=== PATIENT | female | born 1935 | race African-American/Black ===

== ENCOUNTER 2017-09-04 10:41 | Observation (INO) | payer MEDICARE, MEDICAID, SELFPAY | END 2017-09-06 14:25 | PROVIDERS: Admitting Provider Emergency Medicine; Emergency Provider Emergency Medicine; Family Provider Emergency Medicine; Visit Provider Emergency Medicine | DX: R55 Syncope and collapse (principal); E86.0 Dehydration; I10 Essential (primary) hypertension; R11.10 Vomiting, unspecified; E11.9 Type 2 diabetes mellitus without complications; Z79.4 Long term (current) use of insulin; N39.0 Urinary tract infection, site not specified | CPT/HCPCS: 36415; 70450; 71010; 80053; 81001; 82550; 82553; 82962; 84484; 85025; 87040; 87086; 87088; 87186; 93005; 93041; 94760; 96365; 99284; G0378 ==

== ENCOUNTER 2018-12-09 14:21 | Observation (INO) ==
--- NOTE | 2018-12-09 14:49 | Emergency Department Note ---
ED Disposition Clinical Impression: Dehydration UTI (urinary tract infection) Qualifiers: Urinary tract infection type: site unspecified Hematuria presence: without hem aturia Qualified Code(s): N39.0 - Urinary tract infection, site not specified Disposition: Admitted as Observation Condition on Discharge: Fair Referrals: Provider,Referral, [Primary Care Provider] - - Critical Care Critical Care Time: No Attestation: On 12/09/18, the high probability of a clinically significant, sudden or life threatening deterioration of the following system(s) required my full and direct attention, intervention and personal management. The time I documented below is in addition to time spent performing reported procedures but includes the following listed in this critical care notation. Medical Decision Making - Francois Inquiry Pt receiving controlled substance: No Vital Signs: 12/09/18 14:23 Temperature 98.2 F Temperature Source Temporal Artery Scan Pulse Rate [Right Radial] 86 Respiratory Rate 18 Blood Pressure [Right Arm] 189/110 H Blood Pressure Mean [Right Arm] 136 Blood Pressure Source [Right Arm] Automatic Cuff Blood Pressure Position [Right Arm] Supine 02 Sat by Pulse Oximetry 95 Oxygen Delivery Method Room Air - Lab Data Lab Results 12/09/18 15:05: Stool Occult Blood Negative 12/09/18 15:28: WBC 18.7 H, RBC 6.04 H, Hgb 17.4 H, Hct 53.2 H, MCV 88.0, MCH 28.8, MCHC 32.8, RDW 14.6, Plt Count 254, MPV 8.3, Neut % (Auto) 88.0 H, Lymph % (Auto) 6.4 L, [place] % (Auto) 4.7, Eos % (Auto) 0.7, Baso % (Auto) 0.1, Neut # (Auto) 16.5 H, Lymph # (Auto) 1.2, [place] # (Auto) 0.9, Eos # (Auto) 0.1, Baso # (Auto) 0.0, Total Counted 100, Neutrophils % (Manual) 86 H, Band Neutrophils % 5.0, Lymphocytes % (Manual) 4 L, Atypical Lymphs % 1.0, Monocytes % (Manual) 4, Platelet Estimate Normal, RBC Morphology Normal 12/09/18 15:28: Sodium 146 H, Potassium 3.1 L, Chloride 103, Carbon Dioxide 31, Anion Gap 15.1 H, BUN 31 H, Creatinine 0.96, Estimated Creat Clear 41, Estimated GFR 56 L, Est GFR ( Amer) 67, Glucose 242 H, Calcium 9.9, Total Bilirubin 0.8, AST 13 L, ALT 19, Alkaline Phosphatase 115, Total Protein 8.6 H D, Albumin 3.1 L, Globulin 5.5 H, Albumin/Globulin Ratio 0.6 L 12/09/18 15:28: Troponin I < 0.02, Lipase 130 12/09/18 15:34: Urine Color Yellow, Urine Appearance Clear, Urine pH 6.5, Ur Specific [place] 1.025, Urine Protein 3+, Urine Glucose (UA) Negative, Urine Ketones Trace, Urine Blood 1+, Urine Nitrate Positive, Urine Bilirubin Negative, Urine Urobilinogen 0.2, Ur Leukocyte Esterase 1+ A, Urine RBC Occasional, Urine WBC 20-50, Ur Squamous Epith Cells Occasional, Urine Bacteria 2+ 12/09/18 17:41: Lactate 1.4 Result diagrams: 12/09/18 15:28 12/09/18 15:28 Orders (Tests/Meds): ED MEDICATIONS Generic Name Dose Route Start Last Admin Trade Name Freq PRN Reason Stop Dose Admin Ceftriaxone Sodium 1 gm/ 50 mls @ 100 mls/hr 12/09/18 17:30 Sodium Chloride IV 12/23/18 17:29 Q24H LIBRADO Protocol Sodium Chloride 1,000 mls @ 100 mls/hr 12/09/18 18:45 Sod Chlor 0.9% 1000ml Bag IV 01/08/19 18:44 .Q10H LIBRADO Sodium Chloride 10 ml 12/09/18 14:40 Saline Flush 10ml Syringe IV 01/08/19 14:39 NEEDED PRN Maintain IV Site Discontinued Medications Generic Name Dose Route Start Last Admin Trade Name Freq PRN Reason Stop Dose Admin Ioversol 75 ml 12/09/18 16:48 12/09/18 16:48 Rad-Optiray 350 100ml Vial IV 12/09/18 16:49 75 ml ONCE ONE Administration Protocol Sodium Chloride 10 ml 12/09/18 16:48 12/09/18 16:48 Rad-Saline Flush 10ml Syringe IV 12/09/18 16:49 10 ml ONCE ONE Administration ORDERS Category Date Time Status XR chest portable Stat Exams 12/09/18 17:15 Taken Blood Culture Stat Micro 12/09/18 17:41 Received Urine Culture Stat Micro 12/09/18 15:34 Received - Radiology Data #1 Image(s): Chest Image Reviewed: Yes I reviewed the patient's radiology image Preliminary Findings: Normal/NAD - CT Data CT Scan: Abdomen, Pelvis Time Received: 17:[address] Reviewed: Yes: I have viewed the radiologist's interpretation Findings Narrative: IMPRESSION: 1. No acute abdominal or pelvic findings. 2. Possible reflux esophagitis. 3. PEG catheter and Gonzalez catheter in satisfactory position Dictated By: Carrillo Ramos MD - Physician Consults Physician Consulted: Yesica Garcia Time: 18:47 Reason -: Admission Comment/Response: Agrees to admit the patient to the hospital. We discussed the patient's clinical information, including history, exam, laboratory and radiology results and ED course. Per hospital procedure, I will write temporary bridge inpatient orders on the patient. Specific orders requested by the admitting physician: IV fluids, Rocephin General Adult HPI - General Chief complaint: Weakness Stated complaint: bowel obs Time Seen by Provider: 12/09/18 14:49 Mode of Arrival: EMS Limitations: Physical Limitations Description of Symptoms (Recalled from ER Triage Doc. by RN): Possible bowel obstruction. - History of Present Illness HPI narrative: Patient transported by ambulance from [facility], to "rule out bowel obstruction". History obtained from our nurses, who received report that the patient had one episode of coffee-ground emesis today and Dr. Garcia wanted her brought here "to rule out bowel obstruction". Unable to obtain any history from patient as she is nonverbal. - Related Data Home Medications Medication Instructions Recorded Confirmed acetaminophen 500 mg tablet 500 mg PO Q4-6H PRN 11/15/17 12/07/18 amlodipine 5 mg tablet 5 mg PO ONCE 11/15/17 12/07/18 aspirin 325 mg tablet 325 mg PO DAILY tab 11/15/17 12/07/18 brimonidine 0.2 % eye drops 1 drp OPHTHALMIC BID ml 11/15/17 12/07/18 carvedilol 12.5 mg tablet 12.5 mg PO BID 11/15/17 12/07/18 dextrose 40 % oral gel 15 g PO ONCE PRN 11/15/17 12/07/18 escitalopram 10 mg tablet 10 mg PO ONCE 11/15/17 12/07/18 guaifenesin 100 mg/5 mL oral liquid 200 mg PO Q4H 11/15/17 12/07/18 isosorbide dinitrate 30 mg tablet 30 mg PO BID tab 11/15/17 12/07/18 latanoprost 0.005 % eye drops 1 drp OPHTHALMIC DAILY ml 11/15/17 12/07/18 lisinopril 40 mg tablet 40 mg PO DAILY tab 11/15/17 12/07/18 loperamide 2 mg capsule 2 mg PO Q3H cap 11/15/17 12/07/18 nitroglycerin 0.4 mg sublingual 0.4 mg SUBLINGUAL Q5M PRN 11/15/17 12/07/18 tablet ondansetron HCl 4 mg tablet 4 mg PO Q8HP PRN tab 11/15/17 12/07/18 risperidone 2 mg tablet 1 mg PO HS tab 11/15/17 12/07/18 sennosides 8.6 mg-docusate sodium 2 tab PO DAILY 11/15/17 12/07/18 50 mg tablet simvastatin 20 mg tablet 20 mg PO QHS tab 11/15/17 12/07/18 timolol 0.5 % eye drops 1 drp OPHTHALMIC BID 11/15/17 12/07/18 risperiDONE [Risperdal 1mg Tablet] 1 mg PO DAILY 03/01/18 12/07/18 Allergies Allergy/AdvReac Type Severity Reaction Status Date / Time egg [From EGGS (FOOD/DRUG)] Allergy Intermediate I-RASH Verified 12/07/18 18:25 peanut Allergy Intermediate UNK Verified 12/07/18 18:25 [From PEANUTS (FOOD/DRUG)] Penicillins [PENICILLINS] Allergy Intermediate Verified 12/07/18 18:25 [facility] History - Hepatitis A Screen Drug use history?: No High risk sexual behaviors?: No History of sexually transmitted infection?: No Currently employed?: No Childcare worker?: No Do you have indoor plumbing?: Yes Do you have electricity?: Yes Attestation statement:: This patient has been screened for Hepatitis A risk factors. I have reviewed the patient's past medical history: Yes Medical History: Reports:: Diabetes Mellitus Type 1 Denies:: Diabetes Mellitus Type 2 Amputation: No Fractures: No - Social History Smoking Status: Never smoker Alcohol Intake: never Occupational Status: other ROS Obtained: Yes unobtainable due to mental condition Physical Exam - General General appearance: other Comment: Lays with eyes closed, arms folded across chest, knees drawn up. - Head Head exam: atraumatic, normocephalic - Eye Eye exam: Present: PERRL - ENT ENT exam: Present: mucous membranes dry - Neck Neck exam: Present: normal inspection, trachea midline - Chest Chest inspection: Present: normal inspection, symmetric chest wall rise - Respiratory Respiratory exam: Present: normal lung sounds bilaterally. Absent: respiratory distress - Cardiovascular Cardiovascular exam: Present: regular rate, normal rhythm, normal heart sounds - Abdominal Exam Abdominal exam: Present: soft. Absent: distention, guarding, rebound, rigidity Comment: No grimacing or guarding with palpation - Rectal Exam Rectal exam: Present: normal inspection, normal rectal tone, other (stool is green-brown). Absent: bloody stool, fecal impaction - Extremities Exam Extremities exam: Present: normal capillary refill. Absent: tenderness, pedal edema, joint swelling - Neurological Exam Neurological exam: Present: other (Lays with eyes closed, nonverbal) - Skin Skin exam: Present: warm, dry
[2018-12-09 15:36] LABS: Basophils % 0.1 % (0.1-2.0); Eosinophils # 0.1 K/mm3 (0.0-0.4); Eosinophils % 0.7 % (0.1-12.0); Hematocrit 53.2 % (37.0-47.0); Hemoglobin 17.4 g/dL (12.2-16.2); Lymphocytes # 1.2 K/mm3 (0.7-4.5); Lymphocytes % 6.4 % (10-50); Mean Corpuscular HGB Conc 32.8 g/dL (31.8-35.4); Mean Corpuscular Hemoglobin 28.8 pg (27.0-31.2); Mean Platelet Volume 8.3 fl (7.4-10.4); Monocytes # 0.9 K/mm3 (0.1-1.0); Monocytes % 4.7 % (1.7-9.3); Neutrophils # 16.5 K/mm3 (1.8-7.8); Platelet Count 254 K/mm3 (142-424); Red Blood Count 6.04 M/mm3 (4.20-5.40); Red Cell Distribution Width 14.6 % (11.5-17.5); White Blood Count 18.7 K/mm3 (4.8-10.8)
[2018-12-09 15:40] LABS: Microscopic, Urine URINE MICROSCOPIC (MICROSCOPIC)
[2018-12-09 15:46] LABS: Appearance,Urine CLEAR (Clear); Bilirubin,Urine Negative (Negative); Blood, Urine 1+ (Negative); Color,Urine YELLOW (Yellow); Glucose,Urine (UA) Negative (Negative); Ketones,Urine TRACE (Negative); Leukocyte Esterase,Urine 1+ (Negative); PH,Urine 6.5 (5.0-8.5); Protein,Urine 3+ (Negative); Specific Gravity, Urine 1.025 (1.005-1.030); Urobilinogen,Urine 0.2 EU/dl (0.2)
[2018-12-09 15:52] LABS: Lipase 130 u/L (73-393)
[2018-12-09 15:56] LABS: Anion Gap 15.1 mEq/L (5-15); Potassium 3.1 mmoL/L (3.5-5.1)
[2018-12-09 15:57] LABS: Albumin Level 3.1 gm/dL (3.4-5.0); Albumin/Globulin Ratio 0.6 (1.1-1.8); Bilirubin,Total 0.8 mg/dL (0.2-1.0); Calcium 9.9 mg/dL (8.5-10.1); Globulin 5.5 gm/dl (1.3-3.2); Total Protein,Serum 8.6 gm/dL (6.4-8.2)
[2018-12-09 16:07] LABS: Lymphocytes % 4 % (10-50); Monocytes % 4 % (2-9); Neutrophils % 86 % (42-76); RBC Morphology Normal; Total Cells Counted 100
[2018-12-09 16:11] LABS: Bacteria,Urine 2+ /lpf
[2018-12-09 16:12] LABS: RBC,Urine Occasional #/hpf (0-3); Squamous Epithelial Cell,Urine Occasional #/hpf (0-5); WBC,Urine 20-50 #/hpf (0-3)
--- NOTE | 2018-12-09 20:14 | History & Physical Report ---
*Admission Date: 12/09/18 *Chief complaint: vomiting *History of present illness: elderly wf from [facility] with progressive vomiting despite meds - pt was seen in the ed - atient transported by ambulance from [facility], [place], to "rule out bowel obstruction". History obtained from our nurses, who received report that the patient had one episode of coffee-ground emesis today and Dr. Garcia wanted her brought here "to rule out bowel obstruction". Unable to obtain any history from patient as she is nonverbal. pt was found with abn u/a and abn labs and was admitted for ivf and abx - [facility] History I have reviewed the patient's past medical history: Yes Medical History: Reports:: Diabetes Mellitus Type 1, Diabetes Mellitus Type 2 Denies:: Cancer, MRSA *Have you ever received a pneumonia vaccine?: Yes *Have you received a flu vaccine this season?: Yes Amputation: No Fractures: No - *Social History Smoking Status: Never smoker Alcohol Intake: never *Occupational Status:: other Housing: [facility] *Travel in the last 8 weeks: None - Psychiatric History Expresses thoughts of harming self/others: None Suicide Plan Description: No Plan Family Hx:: Unable to obtain Review of Systems - Review of Systems Review of systems:: unable to obtain, pertinent systems reviewed and negative unless documented below - Constitutional Reports headache(s) Meds Home Medications Medication Instructions Recorded Confirmed Type acetaminophen 500 mg tablet 500 mg G-TUBE Q4-6H PRN 11/15/17 12/09/18 History amlodipine 5 mg tablet 5 mg G-TUBE ONCE 11/15/17 12/09/18 History aspirin 325 mg tablet 325 mg G-TUBE DAILY tab 11/15/17 12/09/18 History brimonidine 0.2 % eye drops 1 drp OPHTHALMIC BID ml 11/15/17 12/09/18 History carvedilol 12.5 mg tablet 12.5 mg G-TUBE BID 11/15/17 12/09/18 History isosorbide dinitrate 30 mg tablet 30 mg G-TUBE BID tab 11/15/17 12/09/18 History lisinopril 40 mg tablet 40 mg G-TUBE DAILY tab 11/15/17 12/09/18 History ondansetron HCl 4 mg tablet 4 mg G-TUBE Q8HP PRN tab 11/15/17 12/09/18 History Hydrocod/Acet 5/325 mg [[place] 1 tab G-TUBE TID 12/09/18 12/09/18 History 5/325mg tablet] Insulin Glargine,Hum.rec.anlog 10 unit SQ DAILY 12/09/18 12/09/18 History [Insulin Glargine 100 Units/mL 3mL flexpen] Promethazine HCl [Phenadoz] 25 mg RC DAILY 12/09/18 12/09/18 History cloNIDine [Clonidine] 1 each TD WEEKLY 12/09/18 12/09/18 History fentaNYL [Fentanyl] 1 each TD Q72H 12/09/18 12/09/18 History Allergies Allergy/AdvReac Type Severity Reaction Status Date / Time egg [From EGGS (FOOD/DRUG)] Allergy Intermediate I-RASH Verified 12/07/18 18:25 peanut Allergy Intermediate UNK Verified 12/07/18 18:25 [From PEANUTS (FOOD/DRUG)] Penicillins [PENICILLINS] Allergy Intermediate Verified 12/07/18 18:25 Exam Vital signs and Labs for Last 24 Hours: Temp Pulse Resp BP Pulse Ox 98.2 F 111 H 14 171/92 H 98 12/09/18 14:23 12/09/18 19:18 12/09/18 19:18 12/09/18 19:18 12/09/18 19:18 Laboratory Results - last 24 hr 12/09/18 15:05: Stool Occult Blood Negative 12/09/18 15:28: WBC 18.7 H, RBC 6.04 H, Hgb 17.4 H, Hct 53.2 H, MCV 88.0, MCH 28.8, MCHC 32.8, RDW 14.6, Plt Count 254, MPV 8.3, Neut % (Auto) 88.0 H, Lymph % (Auto) 6.4 L, [place] % (Auto) 4.7, Eos % (Auto) 0.7, Baso % (Auto) 0.1, Neut # (Auto) 16.5 H, Lymph # (Auto) 1.2, [place] # (Auto) 0.9, Eos # (Auto) 0.1, Baso # (Auto) 0.0, Total Counted 100, Neutrophils % (Manual) 86 H, Band Neutrophils % 5.0, Lymphocytes % (Manual) 4 L, Atypical Lymphs % 1.0, Monocytes % (Manual) 4, Platelet Estimate Normal, RBC Morphology Normal 12/09/18 15:28: Sodium 146 H, Potassium 3.1 L, Chloride 103, Carbon Dioxide 31, Anion Gap 15.1 H, BUN 31 H, Creatinine 0.96, Estimated Creat Clear 41, Estimated GFR 56 L, Est GFR ( Amer) 67, Glucose 242 H, Calcium 9.9, Total Bilirubin 0.8, AST 13 L, ALT 19, Alkaline Phosphatase 115, Total Protein 8.6 H D, Albumin 3.1 L, Globulin 5.5 H, Albumin/Globulin Ratio 0.6 L 12/09/18 15:28: Troponin I < 0.02, Lipase 130 12/09/18 15:34: Urine Color Yellow, Urine Appearance Clear, Urine pH 6.5, Ur Specific [place] 1.025, Urine Protein 3+, Urine Glucose (UA) Negative, Urine Ketones Trace, Urine Blood 1+, Urine Nitrate Positive, Urine Bilirubin Negative, Urine Urobilinogen 0.2, Ur Leukocyte Esterase 1+ A, Urine RBC Occasional, Urine WBC 20-50, Ur Squamous Epith Cells Occasional, Urine Bacteria 2+ 12/09/18 17:41: Lactate 1.4 I & O for Last 24 hours: Intake & Output 12/07/18 12/08/18 12/09/18 12/10/18 11:59 11:59 11:59 11:59 Weight 130 lb 8 oz - Constitutional no acute distress, chronically ill appearing Comments: nonverbal - *Routine HEENT Exam Head: Present: normocephalic Eye: Absent: conjunctival icterus ENT: Present: mucous membranes dry - *Routine Neck Exam Absent: JVD - *Routine Respiratory Exam Present: decreased breath sounds - *Routine Cardiovascular Exam Present: RRR, murmur - *Routine Abdominal Exam Present: soft Comments: g tube - *Routine Extremities Exam Present: edema - *Routine Skin Exam Present: intact - *Routine Neurological Exam Present: altered mental status flex contracutures and no posturing - Routine Psychiatric Exam Present: unable to assess Assessment and Plan (1) DNR (do not resuscitate) Current visit: No Status: Acute Category: Medical Code(s): Z66 - Do not resuscitate (2) UTI (urinary tract infection) Current visit: Yes Status: Acute Qualifiers: Urinary tract infection type: site unspecified Hematuria presence: without hematuria Qualified Code(s): N39.0 - Urinary tract infection, site not specified Category: Medical Code(s): N39.0 - Urinary tract infection, site not specified (3) HTN (hypertension) Current visit: Yes Status: Acute Category: Medical Code(s): I10 - Essential (primary) hypertension (4) Glaucoma Current visit: Yes Status: Acute Qualifiers: Glaucoma type: unspecified Laterality: unspecified laterality Qualified Code(s): H40.9 - Unspecified glaucoma Category: Medical Code(s): H40.9 - Unspecified glaucoma (5) Chronic pain disorder Current visit: Yes Status: Acute Category: Medical Code(s): G89.4 - Chronic pain syndrome (6) Diabetes Current visit: Yes Status: Acute Qualifiers: Diabetes mellitus type: type 1 Diabetes mellitus complication status: with unspecified complications Qualified Code(s): E10.8 - Type 1 diabetes mellitus with unspecified complications Category: Medical Code(s): E11.9 - Type 2 diabetes mellitus without complications (7) Dementia Current visit: Yes Status: Acute Qualifiers: Dementia type: unspecified type Dementia behavioral disturbance: without be havioral disturbance Qualified Code(s): F03.90 - Unspecified dementia without behavioral disturbance Category: Medical Code(s): F03.90 - Unspecified dementia without behavioral disturbance (8) Compression fracture of lumbar vertebra Current visit: Yes Status: Acute Qualifiers: Encounter type: subsequent encounter Lumbar vertebra fracture level: L5 Fracture type: closed Fracture healing: with routine healing Qualified Code(s): S32.050D - Wedge compression fracture of fifth lumbar vertebra, subsequent encounter for fracture with routine healing Category: Medical Code(s): S32.000A - Wedge compression fracture of unspecified lumbar vertebra, initial encounter for closed fracture (9) Hypokalemia Current visit: Yes Status: Acute Category: Medical Code(s): E87.6 - Hypokalemia (10) GERD (gastroesophageal reflux disease) Current visit: Yes Status: Acute Qualifiers: Esophagitis presence: with esophagitis Qualified Code(s): K21.0 - Gastro- esophageal reflux disease with esophagitis Category: Medical Code(s): K21.9 - Gastro-esophageal reflux disease without esophagitis
[2018-12-10 06:28] LABS: Basophils % 0.1 % (0.1-2.0); Eosinophils # 0.1 K/mm3 (0.0-0.4); Eosinophils % 0.6 % (0.1-12.0); Lymphocytes # 1.5 K/mm3 (0.7-4.5); Mean Corpuscular HGB Conc 31.8 g/dL (31.8-35.4); Mean Corpuscular Hemoglobin 28.5 pg (27.0-31.2); Mean Corpuscular Volume 89.7 fl (81-99); Mean Platelet Volume 8.3 fl (7.4-10.4); Monocytes # 1.3 K/mm3 (0.1-1.0); Neutrophils # 15.4 K/mm3 (1.8-7.8); Neutrophils % 84.2 % (37.0-80.0); Platelet Count 239 K/mm3 (142-424); Red Blood Count 5.46 M/mm3 (4.20-5.40); Red Cell Distribution Width 14.7 % (11.5-17.5); White Blood Count 18.3 K/mm3 (4.8-10.8)
[2018-12-10 06:37] LABS: Hemoglobin 15.9 g/dL (12.2-16.2)
[2018-12-10 06:42] LABS: Calcium 8.7 mg/dL (8.5-10.1)
--- NOTE | 2018-12-10 07:36 | Pharmacy Consult Notes ---
[facility] Pharmacy VTE Monitoring - Patient Demographics Admission date: 12/09/18 Report Date: 12/10/18 Time: 07:35 Allergies/Adverse Reactions: Patient Allergies egg [From EGGS (FOOD/DRUG)] Allergy (Intermediate, Verified 12/07/18 18:25) I-RASH peanut [From PEANUTS (FOOD/DRUG)] Allergy (Intermediate, Verified 12/07/18 18:25) UNK Penicillins [PENICILLINS] Allergy (Intermediate, Verified 12/07/18 18:25) Height: 1.57 m Weight: 55.99 kg Patient Problems: Current Active Problems UTI (urinary tract infection) (Acute) Dehydration (Acute) HTN (hypertension) (Acute) Glaucoma (Acute) Chronic pain disorder (Acute) Diabetes (Acute) Dementia (Acute) Compression fracture of lumbar vertebra (Acute) Hypokalemia (Acute) GERD (gastroesophageal reflux disease) (Acute) - VTE Risk Labs: VTE Related Lab Results Hgb 15.9 g/dL (12.2-16.2) 12/10/18 06:15 Hct 49.0 % (37.0-47.0) H 12/10/18 06:15 Plt Count 239 K/mm3 (142-424) 12/10/18 06:15 BUN 38 mg/dL (7-18) H 12/10/18 06:15 Creatinine 1.01 mg/dL (0.55-1.02) 12/10/18 06:15 Estimated Creat Clear 41 mL/min (50-200) 12/10/18 06:15 - Prophylaxis VTE Prophylaxis Ordered?: Yes Types of VTE Prophylaxis: TEDS Knee High Location of Applied Device: Bilateral Lower Extremeties - VTE Diagnosis Confirmed Treatment or plan recommended: Continue Current Treatment
[2018-12-10 07:37] LABS: Lymphocytes % 8 % (10-50); Monocytes % 10 % (2-9); Neutrophils % 82 % (42-76); Total Cells Counted 100
[2018-12-10 07:38] LABS: Stomatocytes 2+
--- NOTE | 2018-12-10 09:16 | Consult Report ---
*Admission Date: 12/09/18 *Chief complaint: Emesis *History of present illness: This is an 83-year-old female seen in consultation from the service of Dr. Garcia for evaluation regarding possible bowel obstruction. Please see the following forwarded HPI data from her history and physical: elderly wf from [facility] with progressive vomiting despite meds - pt was seen in the ed - atient transported by ambulance from [facility], [place], to "rule out bowel obstruction". History obtained from our nurses, who received report that the patient had one episode of coffee-ground emesis today and Dr. Garcia wanted her brought here "to rule out bowel obstruction". Unable to obtain any history from patient as she is nonverbal. pt was found with abn u/a and abn labs and was admitted for ivf and abx - Review of Systems - Review of Systems Review of systems:: unable to obtain - *Neurologic Reports headache(s) [facility] History Medical History: Reports:: Congestive Heart Failure, Diabetes Mellitus Type 1, Diabetes Mellitus Type 2, Hypertension Denies:: Cancer, MRSA *Have you ever received a pneumonia vaccine?: Yes *Have you received a flu vaccine this season?: Yes Other Medical History: Reports: Glaucoma Amputation: No Fractures: No - *Social History Smoking Status: Never smoker Alcohol Intake: never *Occupational Status:: other Housing: [facility] *Travel in the last 8 weeks: None - Psychiatric History Expresses thoughts of harming self/others: None Suicide Plan Description: No Plan Family Hx:: Unable to obtain Meds Home Medications Medication Instructions Recorded Confirmed Type acetaminophen 500 mg tablet 500 mg G-TUBE Q6HP PRN 11/15/17 12/10/18 History amlodipine 5 mg tablet 5 mg G-TUBE DAILY 11/15/17 12/10/18 History aspirin 325 mg tablet 325 mg G-TUBE DAILY tab 11/15/17 12/09/18 History brimonidine 0.2 % eye drops 1 drp OPHTHALMIC BID ml 11/15/17 12/09/18 History carvedilol 12.5 mg tablet 12.5 mg G-TUBE BID 11/15/17 12/09/18 History isosorbide dinitrate 30 mg tablet 30 mg G-TUBE BID tab 11/15/17 12/09/18 History lisinopril 40 mg tablet 40 mg G-TUBE DAILY tab 11/15/17 12/09/18 History ondansetron HCl 4 mg tablet 4 mg G-TUBE Q8HP PRN tab 11/15/17 12/09/18 History Hydrocod/Acet 5/325 mg [[place] 1 tab G-TUBE QID 12/09/18 12/10/18 History 5/325mg tablet] Insulin Glargine,Hum.rec.anlog 10 unit SQ DAILY 12/09/18 12/09/18 History [Insulin Glargine 100 Units/mL 3mL flexpen] Promethazine HCl [Phenadoz] 25 mg RC DAILY 12/09/18 12/09/18 History cloNIDine [Clonidine] 1 each TD FR 12/09/18 12/10/18 History fentaNYL [Fentanyl] 1 each TD Q72H 12/09/18 12/09/18 History Timolol Maleate [Timoptic 0.5% 1 ml OP BID 12/10/18 12/10/18 History opth soln 5mL] Allergies Allergy/AdvReac Type Severity Reaction Status Date / Time egg [From EGGS (FOOD/DRUG)] Allergy Intermediate I-RASH Verified 12/07/18 18:25 peanut Allergy Intermediate UNK Verified 12/07/18 18:25 [From PEANUTS (FOOD/DRUG)] Penicillins [PENICILLINS] Allergy Intermediate Verified 12/07/18 18:25 Exam Vital signs and Labs for Last 24 Hours: Temp Pulse Resp BP Pulse Ox 99.2 F 89 16 150/69 H 97 12/10/18 08:36 12/10/18 08:00 12/10/18 08:00 12/10/18 08:00 12/10/18 08:00 Laboratory Results - last 24 hr 12/09/18 15:05: Stool Occult Blood Negative 12/09/18 15:28: WBC 18.7 H, RBC 6.04 H, Hgb 17.4 H, Hct 53.2 H, MCV 88.0, MCH 28.8, MCHC 32.8, RDW 14.6, Plt Count 254, MPV 8.3, Neut % (Auto) 88.0 H, Lymph % (Auto) 6.4 L, [place] % (Auto) 4.7, Eos % (Auto) 0.7, Baso % (Auto) 0.1, Neut # (Auto) 16.5 H, Lymph # (Auto) 1.2, [place] # (Auto) 0.9, Eos # (Auto) 0.1, Baso # (Auto) 0.0, Total Counted 100, Neutrophils % (Manual) 86 H, Band Neutrophils % 5.0, Lymphocytes % (Manual) 4 L, Atypical Lymphs % 1.0, Monocytes % (Manual) 4, Platelet Estimate Normal, RBC Morphology Normal 12/09/18 15:28: Sodium 146 H, Potassium 3.1 L, Chloride 103, Carbon Dioxide 31, Anion Gap 15.1 H, BUN 31 H, Creatinine 0.96, Estimated Creat Clear 41, Estimated GFR 56 L, Est GFR ( Amer) 67, Glucose 242 H, Calcium 9.9, Total Bilirubin 0.8, AST 13 L, ALT 19, Alkaline Phosphatase 115, Total Protein 8.6 H D , Albumin 3.1 L, Globulin 5.5 H, Albumin/Globulin Ratio 0.6 L 12/09/18 15:28: Troponin I < 0.02, Lipase 130 12/09/18 15:34: Urine Color Yellow, Urine Appearance Clear, Urine pH 6.5, Ur Specific [place] 1.025, Urine Protein 3+, Urine Glucose (UA) Negative, Urine Ketones Trace, Urine Blood 1+, Urine Nitrate Positive, Urine Bilirubin Negative, Urine Urobilinogen 0.2, Ur Leukocyte Esterase 1+ A, Urine RBC Occasional, Urine WBC 20-50, Ur Squamous Epith Cells Occasional, Urine Bacteria 2+ 12/09/18 17:41: Lactate 1.4 12/10/18 06:15: WBC 18.3 H, RBC 5.46 H, Hgb 15.9, Hct 49.0 H, MCV 89.7, MCH 28.5, MCHC 31.8, RDW 14.7, Plt Count 239, MPV 8.3, Neut % (Auto) 84.2 H, Lymph % (Auto) 8.0 L, [place] % (Auto) 7.0, Eos % (Auto) 0.6, Baso % (Auto) 0.1, Neut # (Auto) 15.4 H, Lymph # (Auto) 1.5, [place] # (Auto) 1.3 H, Eos # (Auto) 0.1, Baso # (Auto) 0.0, Total Counted 100, Neutrophils % (Manual) 82 H, Lymphocytes % (Manual) 8 L, Monocytes % (Manual) 10 H, Platelet Estimate Normal, Stomatocytes 2+ 12/10/18 06:15: Sodium 150 H, Potassium 3.0 L, Chloride 112 H, Carbon Dioxide 30, Anion Gap 11.0, BUN 38 H, Creatinine 1.01, Estimated Creat Clear 41, Estimated GFR 53 L, Est GFR ( Amer) 64, Glucose 171 H D, Calcium 8.7 D I & O for Last 24 hours: Intake & Output 12/07/18 12/08/18 12/09/18 12/10/18 11:59 11:59 11:59 11:59 Intake Total 1852 / 1852 Output Total 400 / 400 Balance 1452 / 1452 Weight 123 lb 7 oz Microbiology Reports for the Last 24 Hours: Microbiology 12/09/18 15:34 Urine,Clean Catch Urine Culture - Preliminary Gram Negative Rods - Constitutional no acute distress Comments: Noncommunicative - *Routine Respiratory Exam Absent: respiratory distress - *Routine Abdominal Exam Present: soft Comments: Gastrostomy tube in good position. Tube easily rotates. Results - Labs 12/10/18 06:15 12/10/18 06:15 Laboratory Results - last 24 hr 12/09/18 15:05: Stool Occult Blood Negative 12/09/18 15:28: WBC 18.7 H, RBC 6.04 H, Hgb 17.4 H, Hct 53.2 H, MCV 88.0, MCH 28.8, MCHC 32.8, RDW 14.6, Plt Count 254, MPV 8.3, Neut % (Auto) 88.0 H, Lymph % (Auto) 6.4 L, [place] % (Auto) 4.7, Eos % (Auto) 0.7, Baso % (Auto) 0.1, Neut # (Auto) 16.5 H, Lymph # (Auto) 1.2, [place] # (Auto) 0.9, Eos # (Auto) 0.1, Baso # ( Auto) 0.0, Total Counted 100, Neutrophils % (Manual) 86 H, Band Neutrophils % 5.0, Lymphocytes % (Manual) 4 L, Atypical Lymphs % 1.0, Monocytes % (Manual) 4, Platelet Estimate Normal, RBC Morphology Normal 12/09/18 15:28: Sodium 146 H, Potassium 3.1 L, Chloride 103, Carbon Dioxide 31, Anion Gap 15.1 H, BUN 31 H, Creatinine 0.96, Estimated Creat Clear 41, Estimated GFR 56 L, Est GFR ( Amer) 67, Glucose 242 H, Calcium 9.9, Total Bilirubin 0.8, AST 13 L, ALT 19, Alkaline Phosphatase 115, Total Protein 8.6 H D , Albumin 3.1 L, Globulin 5.5 H, Albumin/Globulin Ratio 0.6 L 12/09/18 15:28: Troponin I < 0.02, Lipase 130 12/09/18 15:34: Urine Color Yellow, Urine Appearance Clear, Urine pH 6.5, Ur Specific [place] 1.025, Urine Protein 3+, Urine Glucose (UA) Negative, Urine Ketones Trace, Urine Blood 1+, Urine Nitrate Positive, Urine Bilirubin Negative, Urine Urobilinogen 0.2, Ur Leukocyte Esterase 1+ A, Urine RBC Occasional, Urine WBC 20-50, Ur Squamous Epith Cells Occasional, Urine Bacteria 2+ 12/09/18 17:41: Lactate 1.4 12/10/18 06:15: WBC 18.3 H, RBC 5.46 H, Hgb 15.9, Hct 49.0 H, MCV 89.7, MCH 28.5, MCHC 31.8, RDW 14.7, Plt Count 239, MPV 8.3, Neut % (Auto) 84.2 H, Lymph % (Auto) 8.0 L, [place] % (Auto) 7.0, Eos % (Auto) 0.6, Baso % (Auto) 0.1, Neut # (Auto) 15.4 H, Lymph # (Auto) 1.5, [place] # (Auto) 1.3 H, Eos # (Auto) 0.1, Baso # (Auto) 0.0, Total Counted 100, Neutrophils % (Manual) 82 H, Lymphocytes % (Manual) 8 L, Monocytes % (Manual) 10 H, Platelet Estimate Normal, Stomatocytes 2+ 12/10/18 06:15: Sodium 150 H, Potassium 3.0 L, Chloride 112 H, Carbon Dioxide 30, Anion Gap 11.0, BUN 38 H, Creatinine 1.01, Estimated Creat Clear 41, Estimated GFR 53 L, Est GFR ( Amer) 64, Glucose 171 H D, Calcium 8.7 D - Imaging CT scan - abdomen: report reviewed, image reviewed CT scan - pelvis: report reviewed, image reviewed Assessment and Plan (1) DNR (do not resuscitate) Current visit: No Status: Acute Category: Medical Code(s): Z66 - Do not resuscitate (2) UTI (urinary tract infection) Current visit: Yes Status: Acute Qualifiers: Urinary tract infection type: site unspecified Hematuria presence: without hematuria Qualified Code(s): N39.0 - Urinary tract infection, site not specified Category: Medical Code(s): N39.0 - Urinary tract infection, site not specified (3) HTN (hypertension) Current visit: Yes Status: Acute Category: Medical Code(s): I10 - Essential (primary) hypertension (4) Glaucoma Current visit: Yes Status: Acute Qualifiers: Glaucoma type: unspecified Laterality: unspecified laterality Qualified Code(s): H40.9 - Unspecified glaucoma Category: Medical Code(s): H40.9 - Unspecified glaucoma (5) Chronic pain disorder Current visit: Yes Status: Acute Category: Medical Code(s): G89.4 - Chronic pain syndrome (6) Diabetes Current visit: Yes Status: Acute Qualifiers: Diabetes mellitus type: type 1 Diabetes mellitus complication status: with unspecified complications Qualified Code(s): E10.8 - Type 1 diabetes mellitus with unspecified complications Category: Medical Code(s): E11.9 - Type 2 diabetes mellitus without complications (7) Dementia Current visit: Yes Status: Acute Qualifiers: Dementia type: unspecified type Dementia behavioral disturbance: without behavioral disturbance Qualified Code(s): F03.90 - Unspecified dementia without behavioral disturbance Category: Medical Code(s): F03.90 - Unspecified dementia without behavioral disturbance (8) Compression fracture of lumbar vertebra Current visit: Yes Status: Acute Qualifiers: Encounter type: subsequent encounter Lumbar vertebra fracture level: L5 Fracture type: closed Fracture healing: with routine healing Qualified Code(s): S32.050D - Wedge compression fracture of fifth lumbar vertebra, subsequent encounter for fracture with routine healing Category: Medical Code(s): S32.000A - [place]ge compression fracture of unspecified lumbar vertebra, initial encounter for closed fracture (9) Hypokalemia Current visit: Yes Status: Acute Category: Medical Code(s): E87.6 - Hypokalemia (10) GERD (gastroesophageal reflux disease) Current visit: Yes Status: Acute Qualifiers: Esophagitis presence: with esophagitis Qualified Code(s): K21.0 - Gastro- esophageal reflux disease with esophagitis Category: Medical Code(s): K21.9 - Gastro-esophageal reflux disease without esophagitis (11) Vomiting Current visit: Yes Status: Acute Category: Medical Code(s): R11.10 - Vomiting, unspecified No obvious radiographic evidence or physical exam findings consistent with obstruction. The patient's baseline health status is exceptionally poor. If she does develop evidence consistent with obstruction and/or if she does decompensate (i.e., if any surgical intervention is considered) she would be best served by comfort care measures or to be transferred to a tertiary care center. Nonoperative /comfort care would be seemingly most appropriate if she does show signs of worsening. Consideration of small bowel follow-through via gastrostomy tube if significant need for definitive "obstruction rule out".
--- NOTE | 2018-12-10 16:30 | Discharge Summary ---
General - General Admission date:: 12/09/18 Discharge date: 12/10/18 HPI HPI: elderly wf from [facility] with progressive vomiting despite meds - pt was seen in the ed - atient transported by ambulance from [facility], [place], to "rule out bowel obstruction". History obtained from our nurses, who received report that the patient had one episode of coffee-ground emesis today and Dr. Garcia wanted her brought here "to rule out bowel obstruction". Unable to obtain any history from patient as she is nonverbal. pt was found with abn u/a and abn labs and was admitted for ivf and abx - Hospital Course Hospital Course: pt with slow improvement with ivf and abx - pt is at baseline at this time - pt was seen by dietary and rate decreased of gt ube feeding - pt was seen by surg - obvious radiographic evidence or physical exam findings consistent with obstruction. The patient's baseline health status is exceptionally poor. If she does develop evidence consistent with obstruction and/or if she does decompensate (i.e., if any surgical intervention is considered) she would be best served by comfort care measures or to be transferred to a tertiary care center. Nonoperative/comfort care would be seemingly most appropriate if she does show signs of worsening. Consideration of small bowel follow-through via gastrostomy tube if significant need for definitive "obstruction rule out". pt will need abx for about 1 week and till c/s back - will need ivf also for a few days and check labs on saturday Objective Vital signs: Temp Pulse Resp BP Pulse Ox 97.7 F 94 H 18 145/82 H 98 12/10/18 16:00 12/10/18 16:00 12/10/18 16:00 12/10/18 16:00 12/10/18 16:00 no acute distress, somnolent - *Routine HEENT Exam Eye: Present: EOMI, PERRL. Absent: conjunctival icterus ENT: Present: mucous membranes dry - *Routine Neck Exam Absent: JVD - *Routine Respiratory Exam Present: decreased breath sounds - *Routine Cardiovascular Exam Present: RRR, murmur - *Routine Abdominal Exam Present: soft Comments: has tube - gtube - *Routine Extremities Exam Absent: calf tenderness - *Routine Skin Exam Present: intact. Absent: rash - *Routine Neurological Exam Present: altered mental status at baseline - Routine Psychiatric Exam Present: unable to assess Results Labs on day of discharge: Labs from last 24 hours 12/10/18 12/10/18 12/09/18 06:15 06:15 17:41 WBC 18.3 H RBC 5.46 H Hgb 15.9 Hct 49.0 H MCV 89.7 MCH 28.5 MCHC 31.8 RDW 14.7 Plt Count 239 MPV 8.3 Neut % (Auto) 84.2 H Lymph % (Auto) 8.0 L [place] % (Auto) 7.0 Eos % (Auto) 0.6 Baso % (Auto) 0.1 Neut # (Auto) 15.4 H Lymph # (Auto) 1.5 [place] # (Auto) 1.3 H Eos # (Auto) 0.1 Baso # (Auto) 0.0 Total Counted 100 Neutrophils % (Manual) 82 H Lymphocytes % (Manual) 8 L Monocytes % (Manual) 10 H Platelet Estimate Normal Stomatocytes 2+ Sodium 150 H Potassium 3.0 L Chloride 112 H Carbon Dioxide 30 Anion Gap 11.0 BUN 38 H Creatinine 1.01 Estimated Creat Clear 41 Estimated GFR 53 L Est GFR ( Amer) 64 Glucose 171 H D Lactate 1.4 Calcium 8.7 D Urine Color Urine Appearance Urine pH Ur Specific [place] Urine Protein Urine Glucose (UA) Urine Ketones Urine Blood Urine Nitrate Urine Bilirubin Urine Urobilinogen Ur Leukocyte Esterase Urine RBC Urine WBC Ur Squamous Epith Cells Urine Bacteria 12/09/18 15:34 WBC RBC Hgb Hct MCV MCH MCHC RDW Plt Count MPV Neut % (Auto) Lymph % (Auto) [place] % (Auto) Eos % (Auto) Baso % (Auto) Neut # (Auto) Lymph # (Auto) [place] # (Auto) Eos # (Auto) Baso # (Auto) Total Counted Neutrophils % (Manual) Lymphocytes % (Manual) Monocytes % (Manual) Platelet Estimate Stomatocytes Sodium Potassium Chloride Carbon Dioxide Anion Gap BUN Creatinine Estimated Creat Clear Estimated GFR Est GFR ( Amer) Glucose Lactate Calcium Urine Color Yellow Urine Appearance Clear Urine pH 6.5 Ur Specific [place] 1.025 Urine Protein 3+ Urine Glucose (UA) Negative Urine Ketones Trace Urine Blood 1+ Urine Nitrate Positive Urine Bilirubin Negative Urine Urobilinogen 0.2 Ur Leukocyte Esterase 1+ A Urine RBC Occasional Urine WBC 20-50 Ur Squamous Epith Cells Occasional Urine Bacteria 2+ Preliminary micro results at discharge 12/09/18 15:34 Urine Culture - Preliminary Urine,Clean Catch Gram Negative Rods DS: Diagnosis - Discharge Diagnosis (1) DNR (do not resuscitate) Status: Acute (2) UTI (urinary tract infection) Status: Acute (3) HTN (hypertension) Status: Acute (4) Glaucoma Status: Acute (5) Chronic pain disorder Status: Acute (6) Diabetes Status: Acute (7) Dementia Status: Acute (8) Compression fracture of lumbar vertebra Status: Acute (9) Hypokalemia Status: Acute (10) GERD (gastroesophageal reflux disease) Status: Acute (11) Vomiting Status: Acute (12) Hypernatremia Status: Acute (13) Sepsis due to gram-negative UTI Status: Acute Discharge Plan - Patient Discharge Instructions ACTIVITY: Continue current activity DIET: continue same diet Patient Instructions: DI for Urinary Tract Infection (UTI) - Follow up Plan Disposition: [facility] Home Medications: Home Medications Medication Instructions Recorded Confirmed Type acetaminophen 500 mg tablet 500 mg G-TUBE Q6HP PRN 11/15/17 12/10/18 History amlodipine 5 mg tablet 5 mg G-TUBE DAILY 11/15/17 12/10/18 History aspirin 325 mg tablet 325 mg G-TUBE DAILY tab 11/15/17 12/09/18 History brimonidine 0.2 % eye drops 1 drp OPHTHALMIC BID ml 11/15/17 12/09/18 History carvedilol 12.5 mg tablet 12.5 mg G-TUBE BID 11/15/17 12/09/18 History isosorbide dinitrate 30 mg tablet 30 mg G-TUBE BID tab 11/15/17 12/09/18 History lisinopril 40 mg tablet 40 mg G-TUBE DAILY tab 11/15/17 12/09/18 History ondansetron HCl 4 mg tablet 4 mg G-TUBE Q8HP PRN tab 11/15/17 12/09/18 History Hydrocod/Acet 5/325 mg [[place] 1 tab G-TUBE QID 12/09/18 12/10/18 History 5/325mg tablet] Insulin Glargine,Hum.rec.anlog 10 unit SQ DAILY 12/09/18 12/09/18 History [Insulin Glargine 100 Units/mL 3mL flexpen] Promethazine HCl [Phenadoz] 25 mg RC DAILY 12/09/18 12/09/18 History cloNIDine [Clonidine] 1 each TD FR 12/09/18 12/10/18 History fentaNYL [Fentanyl] 1 each TD Q72H 12/09/18 12/09/18 History Timolol Maleate [Timoptic 0.5% 1 ml OP BID 12/10/18 12/10/18 History opth soln 5mL] Prescriptions/Medication Reconciliation: New Ceftriaxone Sodium [Rocephin 1gm vial] 1 gm IV Q24H 7 Days vial Ceftriaxone Sodium [Rocephin 1gm vial] 1 gm IV Q24H vial Continue acetaminophen 500 mg tablet 500 mg G-TUBE Q6HP PRN PRN Reason: PAIN, FEVER amlodipine 5 mg tablet 5 mg G-TUBE DAILY aspirin 325 mg tablet 325 mg G-TUBE DAILY tab brimonidine 0.2 % eye drops 1 drp OPHTHALMIC BID ml carvedilol 12.5 mg tablet 12.5 mg G-TUBE BID isosorbide dinitrate 30 mg tablet 30 mg G-TUBE BID tab ondansetron HCl 4 mg tablet 4 mg G-TUBE Q8HP PRN tab PRN Reason: Nausea fentaNYL [Fentanyl] 1 each TD Q72H Promethazine HCl [Phenadoz] 25 mg RC DAILY Insulin Glargine,Hum.rec.anlog [Insulin Glargine 100 Units/mL 3mL flexpen] 10 unit SQ DAILY cloNIDine [Clonidine] 1 each TD FR Hydrocod/Acet 5/325 mg [[place] 5/325mg tablet] 1 tab G-TUBE QID Timolol Maleate [Timoptic 0.5% opth soln 5mL] 1 ml OP BID Discontinued lisinopril 40 mg tablet 40 mg G-TUBE DAILY tab
== END 2018-12-10 18:42 ==
LOC: ER 14:21 → 2ND 14:21
PROVIDERS: ADMIT Internal Medicine Adolescent Medicine; ATTEND Emergency Medicine
CPT/HCPCS: 36415; 71010; 71045; 74177; 80048; 80053; 81001; 82272; 83605; 83690; 84484; 85007; 85025; 87040; 87086; 87088; 87186; 96365; 96367; 96375; 99284; G0328; G0378; J2405; Q9967

== ENCOUNTER 2020-04-07 11:10 | Observation (INO) | payer MEDICARE, MEDICAID, SELFPAY ==
[2020-04-07] VITALS (10 sets, daily range): BP systolic 142–181; BP diastolic 89–115; PULSE 102–119; RESP 15–20; TEMP 36.5–37.1; O2SAT 97–100; BMI 24.7; BMI 24.8
--- NOTE | 2020-04-07 11:18 | [facility].EDGENADL ---
ED Disposition Clinical Impression: Upper GI bleed UTI (urinary tract infection) Qualifiers: Urinary tract infection type: acute cystitis Hematuria presence: with hematuria Qualified Code(s): N30.01 - Acute cystitis with hematuria Disposition: Admitted as Observation Condition on Discharge: Fair Referrals: PCP,No [Primary Care Provider] - - Critical Care Critical Care Time: No Attestation: On , the high probability of a clinically significant, sudden or life threatening deterioration of the following system(s) required my full and direct attention, intervention and personal management. The time I documented below is in addition to time spent performing reported procedures but includes the following listed in this critical care notation. Medical Decision Making - Francois Inquiry Pt receiving controlled substance: No Vital Signs: 04/07/20 11:11 04/07/20 11:35 04/07/20 12:14 Temperature 98.8 F Temperature Source Rectal Pulse Rate [Right] 111 H 115 H 119 H Respiratory Rate 17 17 20 Blood Pressure [Right Arm] 161/104 H 181/115 H 160/89 H Blood Pressure Mean [Right Arm] 123 137 112 Blood Pressure Source [Right Arm] Automatic Cuff Blood Pressure Position [Right Arm] Supine 02 Sat by Pulse Oximetry 97 99 100 Oxygen Delivery Method Room Air Room Air 04/07/20 12:45 04/07/20 13:19 Temperature Temperature Source Pulse Rate [Right] 111 H 102 H Respiratory Rate 15 19 Blood Pressure [Right Arm] 154/99 H 175/111 H Blood Pressure Mean [Right Arm] 117 132 Blood Pressure Source [Right Arm] Blood Pressure Position [Right Arm] 02 Sat by Pulse Oximetry 100 97 Oxygen Delivery Method - Lab Data Lab Results 04/07/20 11:25: Stool Occult Blood Positive A 04/07/20 11:30: WBC 10.5, RBC 5.76 H, Hgb 16.9 H, Hct 50.6 H, MCV 87.8, MCH 29.3, MCHC 33.4, RDW 15.1, Plt Count 202, MPV 8.9, Neut % (Auto) 76.8, Lymph % (Auto) 16.3, [place] % (Auto) 5.0, Eos % (Auto) 1.3, Baso % (Auto) 0.5, Neut # (Auto) 8.0 H, Lymph # (Auto) 1.7, [place] # (Auto) 0.5, Eos # (Auto) 0.1, Baso # (Auto) 0.1 04/07/20 11:30: Sodium 143, Potassium 4.5, Chloride 102, Carbon Dioxide 31 H, Anion Gap 14.5, BUN 25 H, Creatinine 0.70, Estimated Creat Clear 41, Estimated GFR 80, Est GFR ( Amer) 97, Glucose 214 H, Calcium 9.7, Total Bilirubin 0.5, AST 35, ALT 20, Alkaline Phosphatase 130 H, Total Protein 8.4 H, Albumin 4.0, Globulin 4.4 H, Albumin/Globulin Ratio 0.9 L 04/07/20 11:30: Lipase 63 04/07/20 11:30: Urine Color Yellow, Urine Appearance Clear, Urine pH 7.5, Ur Specific [place] 1.020, Urine Protein 2+, Urine Glucose (UA) Negative, Urine Ketones Negative, Urine Blood 3+, Urine Nitrate Negative, Urine Bilirubin Negative, Urine Urobilinogen 0.2, Ur Leukocyte Esterase 3+ A, Urine RBC 20-50, Urine WBC Tntc, Ur Squamous Epith Cells 5-10, Urine Bacteria 4+ 04/07/20 11:30: Troponin I < 0.01 04/07/20 11:30: Lactate 1.6 Result diagrams: 04/07/20 11:30 04/07/20 11:30 Orders (Tests/Meds): ED MEDICATIONS Generic Name Dose Route Start Last Admin Trade Name Freq PRN Reason Stop Dose Admin Ertapenem 1 gm/ Sodium 50 mls @ 100 mls/hr 04/07/20 12:30 04/07/20 13:08 Chloride IV 04/21/20 12:29 100 mls/hr Q24H LIBRADO Administration Protocol ORDERS Category Date Time Status Troponin I Q3H Lab 04/07/20 15:00 Ordered Troponin I Q3H Lab 04/07/20 18:00 Ordered Blood Culture Stat Micro 04/07/20 11:30 Received Urine Culture Stat Micro 04/07/20 11:30 Received - CT Data CT Scan: Abdomen, Pelvis Time Received: 13:[address] Reviewed: Yes: I have viewed the radiologist's interpretation Findings Narrative: PROCEDURE: CT ABDOMEN PELVIS WO CON CLINICAL INDICATION: vomiting COMPARISON: ABDPELW CT abdomen pelvis w con from 12/09/2018 TECHNIQUE: Axial images obtained with sagittal and coronal reformats. All CT scans at the facility use one or more dose reduction, viz: automated exposure control, ma/kV adjustment per pa
[2020-04-07 11:46] LABS: Microscopic, Urine URINE MICROSCOPIC (MICROSCOPIC)
[2020-04-07 11:49] LABS: Appearance,Urine CLEAR (Clear); Bilirubin,Urine Negative (Negative); Blood, Urine 3+ (Negative); Color,Urine YELLOW (Yellow); Glucose,Urine (UA) Negative (Negative); Ketones,Urine Negative (Negative); Leukocyte Esterase,Urine 3+ (Negative); Nitrate,Urine Negative (Negative); PH,Urine 7.5 (5.0-8.5); Protein,Urine 2+ (Negative); Urobilinogen,Urine 0.2 EU/dl (0.2)
[2020-04-07 11:51] LABS: Basophils # 0.1 K/mm3 (0-0.2); Basophils % 0.5 % (0.1-2.0); Eosinophils # 0.1 K/mm3 (0.0-0.4); Eosinophils % 1.3 % (0.1-12.0); Hematocrit 50.6 % (37.0-47.0); Hemoglobin 16.9 g/dL (12.2-16.2); Lymphocytes # 1.7 K/mm3 (0.7-4.5); Lymphocytes % 16.3 % (10-50); Mean Corpuscular HGB Conc 33.4 g/dL (31.8-35.4); Mean Corpuscular Hemoglobin 29.3 pg (27.0-31.2); Mean Corpuscular Volume 87.8 fl (81-99); Mean Platelet Volume 8.9 fl (7.4-10.4); Monocytes # 0.5 K/mm3 (0.1-1.0); Neutrophils % 76.8 % (37.0-80.0); Platelet Count 202 K/mm3 (142-424); Red Blood Count 5.76 M/mm3 (4.20-5.40); Red Cell Distribution Width 15.1 % (11.5-17.5); White Blood Count 10.5 K/mm3 (4.8-10.8)
--- NOTE | 2020-04-07 11:51 | PC.NURSE ---
Gtube assess per auscultation of air, 5 ml of gastric fluid aspirated.
--- NOTE | 2020-04-07 11:53 | CT_ITS ---
PROCEDURE: CT ABDOMEN PELVIS WO CON CLINICAL INDICATION: vomiting COMPARISON: ABDPELW CT abdomen pelvis w con from 12/09/2018 TECHNIQUE: Axial images obtained with sagittal and coronal reformats. All CT scans at the facility use one or more dose reduction, viz: automated exposure control, ma/kV adjustment per patient size (including targeted exams where dose is matched to indication, i.e. head), or iterative reconstruction technique. FINDINGS: There are coronary artery calcifications present. The patient is scanned in the right lateral decubitus position. The liver, gallbladder, spleen, adrenal glands, and pancreas have an unremarkable appearance. There is a PEG tube present. The tip is in the region of the body of the stomach. No renal or ureteral calculi. No hydronephrosis. No intestinal obstruction or free air. There is considerable motion artifact which does obscure fine detail. Patient's legs are flexed causing artifact in the pelvic region. There is a Gonzalez catheter present. There is diverticulosis of the colon but no evidence of diverticulitis. There is a mild amount of retained colonic feces. The appendix is not well delineated. The cecal area is somewhat obscured by motion artifact. No acute bony anomalies are evident IMPRESSION: No definite acute finding. Limitations are present as described above. PEG catheter in good position. Gonzalez catheter in good position. Moderate amount of retained colonic feces Dictated by: Carrillo Ramos MD 04/07/2020 13:03 Electronically signed by Carrillo Ramos MD in [place] 04/07/2020 13:03
--- NOTE | 2020-04-07 11:54 | PC.NURSE ---
Pt is very contracted in all extremities, no skin issues noted.
[2020-04-07 11:59] LABS: Occult Blood,Stool Positive (Negative)
[2020-04-07 12:08] LABS: Bacteria,Urine 4+ /lpf; RBC,Urine 20-50 #/hpf (0-3); WBC,Urine TNTC #/hpf (0-3)
[2020-04-07 12:09] LABS: Alanine Aminotransferase 20 U/L (12-78); Albumin/Globulin Ratio 0.9 (1.1-1.8); Alkaline Phosphatase 130 U/L (38-126); Anion Gap 14.5 mEq/L (5-15); Aspartate Amino Transferase 35 U/L (14-36); Bilirubin,Total 0.5 mg/dl (0.2-1.3); Blood Urea Nitrogen 25 mg/dl (7-17); Calcium 9.7 mg/dl (8.4-10.2); Carbon Dioxide 31 mmol/L (22.0-30.0); Chloride 102 mmol/L (98-107); Creatinine Clearance Estimated 41 mL/min (50-200); Estimated Glomerular Filt Rate 80 ml/min (>60); GFR (African American) 97 ML/MIN (>60); Globulin 4.4 g/dL (1.3-3.2); Glucose 214 mg/dl (74-100); Lipase 63 U/L (23-300); Potassium 4.5 mmoL/L (3.5-5.1); Sodium 143 mmol/L (136-145); Total Protein,Serum 8.4 g/dl (6.3-8.2)
--- NOTE | 2020-04-07 12:10 | ECG_ITS ---
APPROVED REPORT Exam: Resting ECG HR:114 bpm ECG Measurements Heart Rate 114 AXES VT 156 P 72 QRSd 134 QRS -46 QT 354 T 130 QTc 487 <Conclusion> Undetermined rhythm Left axis deviation Left bundle branch block Abnormal ECG Electronically signed by : Edgar Robert, 04/08/2020 17:04:13
[2020-04-07 12:25] LABS: Troponin I < 0.01 ng/ml (0.00-0.034)
[2020-04-07 12:32] LABS: Lactic Acid 1.6 mmol/L (0.7-2.1)
--- NOTE | 2020-04-07 13:19 | PC.NURSE ---
Excoritation noted around gtube, clean piece of gauze applied, pt noted to have abrasions on the right hip.
--- NOTE | 2020-04-07 13:22 | PC.NURSE ---
Paged Sue for consult
--- NOTE | 2020-04-07 13:22 | PC.NURSE ---
speaking to Sue
--- NOTE | 2020-04-07 13:25 | PC.NURSE ---
Sue stated she will speak to Dr Taveras before agreeing to admit
--- NOTE | 2020-04-07 14:58 | PC.NURSE ---
RN aware of elevated bp and pulse.
--- NOTE | 2020-04-07 15:20 | PC.NURSE ---
spoke to Silvana @ [place] to confirm type and rate of tubefeeding. Silvana reports that pt gets Diabetic source 1.2 linda with a rate of 55ml/hr continuously. Updated dietary.
--- NOTE | 2020-04-07 15:59 | PC.NURSE ---
called Dr. Taveras' office to verify tubefeed order and to ask if he wanted it started or to be put on HOLD r/t emesis this morning and GI bleed. Left message for Kat Contreras RN to call me back to confirm orders. Will not start tubefeeds until order confirmed/verified.
[2020-04-07 16:50] LABS: POC Glucose,Bedside 121 (70-110)
--- NOTE | 2020-04-07 18:04 | PC.NURSE ---
new admit this shift from the ED. Pt is nonverbal and is not alert. She will respond to touch, which usually results in her biting herself or staff. Rolled up washcloth placed in her hands. There are orders for Fentanyl patch and Clonidine patch. She came to the unit without either of these patches on. Dr. Taveras to round before shift change to address this issue. No vomiting noted. No other issues noted.
--- NOTE | 2020-04-07 19:11 | PC.NURSE ---
Spoke to Dr. Taveras. He ordered to restart tubefeeds @ 55ml/hr. He will be rounding shortly.
[2020-04-07 21:44] LABS: POC Glucose,Bedside 158 (70-110)
[2020-04-08 03:34] VITALS: BP 141/73; PULSE 94; RESP 16; TEMP 37.3; O2SAT 98
[2020-04-08 03:58] VITALS: BMI 24.7
--- NOTE | 2020-04-08 06:08 | PC.NURSE ---
Pt remains baseline since start of shift. Non-verbal and resistive to care. Pt attempts to bite staff and herself whenever she is touched. Oral care was attempted multiple times w/ pt biting down on swab. Repositioned Q2H to prevent breakdown. Heel protectors in place and pillows placed at pressure points. Unable to apply GUSTAVO hose d/t pt being contracted in position. Gonzalez patent to bedside drain w/ clear,yellow urine present. Pt did have a BM this shift, brown in color w/ no signs of bleeding. No emesis. Enternal feed rate at 55ml/hr per MD's orders. PEG to auscultated to verify placement. Residuals assessed and free water flush given Q6H. Pt HOB at 30 degrees during continuous feeding.
--- NOTE | 2020-04-08 07:13 | PC.NURSE ---
Pt had residual of 10ml and 9ml this shift.
--- NOTE | 2020-04-08 07:29 | P.CONPHA_ITS ---
[facility] Pharmacy VTE Monitoring - Patient Demographics Admission date: 04/07/20 Report Date: 04/08/20 Time: 07:29 Allergies/Adverse Reactions: Patient Allergies egg [From EGGS (FOOD/DRUG)] Allergy (Intermediate, Verified 02/28/20 09:26) I-RASH peanut [From PEANUTS (FOOD/DRUG)] Allergy (Intermediate, Verified 02/28/20 09:26) UNK Penicillins [PENICILLINS] Allergy (Intermediate, Verified 02/28/20 09:26) Height: 1.57 m Weight: 60.98 kg Patient Problems: Current Active Problems UTI (urinary tract infection) (Acute) Upper GI bleed (Acute) - VTE Risk Labs: VTE Related Lab Results Hgb 16.9 g/dL (12.2-16.2) H 04/07/20 11:30 Hct 50.6 % (37.0-47.0) H 04/07/20 11:30 Plt Count 202 K/mm3 (142-424) 04/07/20 11:30 BUN 25 mg/dl (7-17) H 04/07/20 11:30 Creatinine 0.70 mg/dl (0.52-1.04) 04/07/20 11:30 Estimated Creat Clear 41 mL/min (50-200) 04/07/20 11:30 Was VTE Risk Assessment Performed: Yes VTE Score: 5 VTE Risk Level: Very Low Risk Clinical Trial Participant: No - Prophylaxis VTE Prophylaxis Ordered?: Yes Types of VTE Prophylaxis: TEDS Knee High
[2020-04-08 08:00] VITALS: BP 148/89; PULSE 90; RESP 20; TEMP 36.7; O2SAT 98
[2020-04-08 08:10] LABS: Basophils # 0.1 K/mm3 (0-0.2); Basophils % 0.7 % (0.1-2.0); Eosinophils # 0.3 K/mm3 (0.0-0.4); Eosinophils % 3.4 % (0.1-12.0); Hematocrit 43.2 % (37.0-47.0); Lymphocytes # 2.3 K/mm3 (0.7-4.5); Lymphocytes % 23.4 % (10-50); Mean Corpuscular HGB Conc 33.9 g/dL (31.8-35.4); Mean Corpuscular Hemoglobin 29.3 pg (27.0-31.2); Mean Corpuscular Volume 86.4 fl (81-99); Mean Platelet Volume 9.1 fl (7.4-10.4); Monocytes # 0.7 K/mm3 (0.1-1.0); Monocytes % 7.2 % (1.7-9.3); Neutrophils # 6.5 K/mm3 (1.8-7.8); Neutrophils % 65.4 % (37.0-80.0); Platelet Count 184 K/mm3 (142-424)
[2020-04-08 08:16] LABS: Hemoglobin 14.7 g/dL (12.2-16.2)
--- NOTE | 2020-04-08 09:09 | HMH.HPDC ---
General - General Admission date:: 04/07/20 Discharge date: 04/08/20 *Admission Date: 04/07/20 *Chief complaint: gi bleed *History of present illness: 85-year-old female presented to the ER via ambulance. Patient was sent from [facility] per report for 2 coffee-ground emesis. Patient is nonverbal. Patient was admitted to monitor H&H. CT of abdomen showed retained feces. Urine shows 3+ bacteria will start treatment for uti cx pending. [facility] History I have reviewed the patient's past medical history: Yes Medical History: Reports:: Anxiety, Congestive Heart Failure, Dementia, Depression, Diabetes Mellitus Type 2, Hyperlipidemia, Hypertension, Transient Ischemic Attacks (TIA), Urinary Tract Infection Denies:: Atrial Fibrillation, Cancer, Diabetes Mellitus Type 1, Internal Pacemaker, MRSA *Have you ever received a pneumonia vaccine?: No *Have you received a flu vaccine this season?: Yes Other Medical History: Reports: Anemia, Glaucoma Other Surgeries: No: Pacemaker Amputation: No Fractures: No - *Social History Smoking Status: Never smoker Alcohol Intake: never *Occupational Status:: disabled Housing: [facility] *Travel in the last 8 weeks: None - Psychiatric History Pschychiatric History:: Reports:: Anxiety, Depression Family Hx:: Unable to obtain Review of Systems - Review of Systems Review of systems:: unable to obtain Exam Vital signs and Labs for Last 24 Hours: Temp Pulse Resp BP Pulse Ox 99.1 F 94 H 16 141/73 H 98 04/08/20 03:34 04/08/20 03:34 04/08/20 03:34 04/08/20 03:34 04/08/20 03:34 Laboratory Results - last 24 hr 04/07/20 11:25: Stool Occult Blood Positive A 04/07/20 11:30: WBC 10.5, RBC 5.76 H, Hgb 16.9 H, Hct 50.6 H, MCV 87.8, MCH 29.3, MCHC 33.4, RDW 15.1, Plt Count 202, MPV 8.9, Neut % (Auto) 76.8, Lymph % (Auto) 16.3, Morris % (Auto) 5.0, Eos % (Auto) 1.3, Baso % (Auto) 0.5, Neut # (Auto) 8.0 H, Lymph # (Auto) 1.7, Morris # (Auto) 0.5, Eos # (Auto) 0.1, Baso # (Auto) 0.1 04/07/20 11:30: Sodium 143, Potassium 4.5, Chloride 102, Carbon Dioxide 31 H, Anion Gap 14.5, BUN 25 H, Creatinine 0.70, Estimated Creat Clear 41, Estimated GFR 80, Est GFR ( Amer) 97, Glucose 214 H, Calcium 9.7, Total Bilirubin 0.5, AST 35, ALT 20, Alkaline Phosphatase 130 H, Total Protein 8.4 H, Albumin 4.0, Globulin 4.4 H, Albumin/Globulin Ratio 0.9 L 04/07/20 11:30: Lipase 63 04/07/20 11:30: Urine Color Yellow, Urine Appearance Clear, Urine pH 7.5, Ur Specific [place] 1.020, Urine Protein 2+, Urine Glucose (UA) Negative, Urine Ketones Negative, Urine Blood 3+, Urine Nitrate Negative, Urine Bilirubin Negative, Urine Urobilinogen 0.2, Ur Leukocyte Esterase 3+ A, Urine RBC 20-50, Urine WBC Tntc, Ur Squamous Epith Cells 5-10, Urine Bacteria 4+ 04/07/20 11:30: Troponin I < 0.01 04/07/20 11:30: Lactate 1.6 04/07/20 16:04: POC Glucose 121 H 04/07/20 21:12: POC Glucose 158 H 04/08/20 07:45: WBC 10.0, RBC 5.00, Hgb 14.7 D, Hct 43.2, MCV 86.4, MCH 29.3, MCHC 33.9, RDW 15.0, Plt Count 184, MPV 9.1, Neut % (Auto) 65.4, Lymph % (Auto) 23.4, Morris % (Auto) 7.2, Eos % (Auto) 3.4, Baso % (Auto) 0.7, Neut # (Auto) 6.5, Lymph # (Auto) 2.3, Morris # (Auto) 0.7, Eos # (Auto) 0.3, Baso # (Auto) 0.1 I & O for Last 24 hours: Intake & Output 04/05/20 04/06/20 04/07/20 04/08/20 11:59 11:59 11:59 11:59 Intake Total 1387 / 1387 Output Total 175 / 175 Balance 1212 / 1212 Weight 135 lb 134 lb 7 oz Microbiology Reports for the Last 24 Hours: Microbiology 04/07/20 11:30 Urine,Catheterized Urine Culture - Preliminary - Constitutional no acute distress, thin, chronically ill appearing - *Routine HEENT Exam Head: Present: normocephalic Eye: Present: PERRL ENT: Present: mucous membranes moist - *Routine Neck Exam Present: supple. Absent: lymphadenopathy - *Routine Respiratory Exam Present: CTA bilaterally - *Routine Cardiovascular Exam Present: RRR - *Routine Abdominal Exam Present: so
--- NOTE | 2020-04-08 09:43 | SW/DCPLANNER ---
I have notified Danelle with [facility] that this patient will discharge back today. Patient is ICF level of care.
[2020-04-08 11:29] LABS: POC Glucose,Bedside 132 (70-110)
== END 2020-04-08 11:42 ==
LOC: ER 13:33 → 2ND 04-08 09:24
PROVIDERS: Admitting Provider Family Medicine; Emergency Provider Emergency Medicine; Visit Provider Family Medicine
DX: K92.2 Gastrointestinal hemorrhage, unspecified (principal); N39.0 Urinary tract infection, site not specified; I11.0 Hypertensive heart disease with heart failure; I50.9 Heart failure, unspecified; E11.9 Type 2 diabetes mellitus without complications; Z79.4 Long term (current) use of insulin; E78.5 Hyperlipidemia, unspecified; Z79.82 Long term (current) use of aspirin; Z79.899 Other long term (current) drug therapy; Z91.012 Allergy to eggs; Z91.010 Allergy to peanuts; Z91.09 Other allergy status, other than to drugs and biological substances
CPT/HCPCS: 36415; 74176; 80053; 81001; 82272; 82962; 83605; 83690; 84484; 85025; 87040; 87086; 87088; 93005; 96365; 96367; 96374; 99285; G0328; G0378; J1335

== ENCOUNTER 2020-11-11 15:34 | Inpatient (IN) | payer MEDICARE, MEDICAID, SELFPAY ==
[2020-11-11] VITALS (11 sets, daily range): BP systolic 116–162; BP diastolic 53–99; PULSE 110–138; RESP 24–36; TEMP 36.1–38.4; O2SAT 89–99; BMI 28.3; BMI 21.8
--- NOTE | 2020-11-11 16:11 | ECG_ITS ---
APPROVED REPORT Exam: Resting ECG HR:137 bpm ECG Measurements Heart Rate 137 AXES NJ 144 P 26 QRSd 130 QRS -6 QT 280 T 145 QTc 422 Conclusion Sinus tachycardia with occasional premature ventricular complexes Biatrial enlargement Nonspecific intraventricular block Cannot rule out Septal infarct, age undetermined Inferior injury pattern ACUTE ME Consider right ventricular involvement in acute inferior infarct Abnormal ECG Electronically signed by : Edgar Robert, 11/12/2020 20:37:26
--- NOTE | 2020-11-11 16:28 | HMH.EDGENADL ---
ED Disposition Clinical Impression: Dehydration, Hypernatremia, Abnormal EKG, Hyperglycemia, Occult blood in stools Pneumonia Qualifiers: Pneumonia type: due to unspecified organism Laterality: unspecified laterality Lung location: unspecified part of lung Qualified Code(s): J18.9 - Pneumonia, unspecified organism Disposition: Admitted As Inpatient Condition on Discharge: Serious - Critical Care Critical Care Time: No Attestation: On , the high probability of a clinically significant, sudden or life threatening deterioration of the following system(s) required my full and direct attention, intervention and personal management. The time I documented below is in addition to time spent performing reported procedures but includes the following listed in this critical care notation. Medical Decision Making - Francois Inquiry Pt receiving controlled substance: No Vital Signs: 11/11/20 15:35 11/11/20 16:05 11/11/20 16:30 Temperature 101.1 F H Temperature Source Rectal Pulse Rate [Apical] 133 H 130 H Pulse Rate [Left Radial] 138 H Respiratory Rate 32 H 36 H 28 H Blood Pressure [Right Arm] 162/99 H 162/99 H 153/91 H Blood Pressure Mean [Right Arm] 120 120 111 Blood Pressure Source [Right Arm] Automatic Cuff Automatic Cuff Automatic Cuff Blood Pressure Position [Right Arm] Sitting Sitting Sitting 02 Sat by Pulse Oximetry 96 94 L 96 Oxygen Delivery Method Nasal Cannula Nasal Cannula Room Air Oxygen Flow Rate (LPM) 2 2 11/11/20 17:00 11/11/20 17:30 11/11/20 18:00 Temperature Temperature Source Pulse Rate [Apical] 130 H 126 H 124 H Pulse Rate [Left Radial] Respiratory Rate 30 H 26 H 25 H Blood Pressure [Right Arm] 148/89 H 133/82 136/80 Blood Pressure Mean [Right Arm] 108 99 98 Blood Pressure Source [Right Arm] Automatic Cuff Automatic Cuff Automatic Cuff Blood Pressure Position [Right Arm] Sitting Sitting Sitting 02 Sat by Pulse Oximetry 96 95 95 Oxygen Delivery Method Room Air Nasal Cannula Nasal Cannula Oxygen Flow Rate (LPM) 2 2 11/11/20 18:30 Temperature Temperature Source Pulse Rate [Apical] 122 H Pulse Rate [Left Radial] Respiratory Rate 28 H Blood Pressure [Right Arm] 134/77 Blood Pressure Mean [Right Arm] 96 Blood Pressure Source [Right Arm] Automatic Cuff Blood Pressure Position [Right Arm] Sitting 02 Sat by Pulse Oximetry 95 Oxygen Delivery Method Nasal Cannula Oxygen Flow Rate (LPM) 2 - Lab Data Lab Results 11/11/20 15:50: Lactate 1.9 11/11/20 15:50: Stool Occult Blood Positive A 11/11/20 15:50: Chlamy pneumoniae PCR Not detected, Adenovirus (PCR) Not detected, B. pertussis DNA (PCR) Not detected, Coronavirus OC43 (PCR) Not detected, Coronavirus HKU1 (PCR) Not detected, Coronavirus 229E (PCR) Not detected, SARS-CoV-2 (PCR) Not detected, Coronavirus NL63 (PCR) Not detected, Human Metapneumovir PCR Not detected, Influenza A (H1) PCR Not detected, Influ A (H1N1/09) PCR Not detected, Influenza A (H3) PCR Not detected, Influenza Type A (PCR) Not detected, Influenza Type B (PCR) Not detected, M. pneumoniae (PCR) Not detected, Parainfluenza 1 (PCR) Not detected, Parainfluenza 2 (PCR) Not detected, Parainfluenza 3 (PCR) Not detected, Parainfluenza 4 (PCR) Not detected, RSV (PCR) Not detected, Entero/Rhino (PCR) Not detected 11/11/20 16:32: Urine Color Yellow, Urine Appearance Clear, Urine pH 6.0, Ur Specific Gilbert 1.010, Urine Protein Trace, Urine Glucose (UA) 3+, Urine Ketones Negative, Urine Blood Trace-i, Urine Nitrate Negative, Urine Bilirubin Negative, Urine Urobilinogen 0.2, Ur Leukocyte Esterase Trace, Urine WBC 5-10, Ur Squamous Epith Cells 5-10, Urine Bacteria 1+ 11/11/20 17:03: Troponin I 0.08 H 11/11/20 17:03: WBC 13.8 H, RBC 5.05, Hgb 14.0, Hct 46.6, MCV 92.1, MCH 27.7, MCHC 30.1 L, RDW 15.1, Plt Count 141 L, MPV 10.7 H, Neut % (Auto) 81.3 H, Lymph % (Auto) 7.5 L, [place] % (Auto) 10.4 H, Eos % (Auto) 0.4, Baso % (Auto) 0.4, Neut # (Auto) 11.2 H, Lymph # (Auto) 1.0, [place] # (Auto) 1.
--- NOTE | 2020-11-11 16:29 | CA_ITS ---
APPROVED REPORT EXAM: Comprehensive 2D, Doppler, and color-flow Echocardiogram Motor Vehicle Compliance Analyst: Daniela Wick, RT(R) Ht: 5 ft 2 in Wt: 134lbs BSA: 1.61 BP: 144/88 mmHg Indications: CHF, dementia, GI bleed, nonverbal, unresponsive patient, hx of TIA's, GERD. Limited scanning due to patient positioning and unable to move from contracted position. 2D Dimensions LVOT 1.84 cm (M/F) 1.5-2.5 M-Mode Dimensions RVDd 1.53 cm (0.9-2.6) LA Diam 3.01 cm (1.9-4.0) LVDd 3.69 cm (3.5-5.7) Ao Diam 2.33 cm (2.0-3.7) LVDs 2.89 cm (3.5-5.7) IVSd 0.86 cm (0.6-1.1) PWd 0.62 cm (0.6-1.1) EF (Teich) 44.80% FS 21.70% EDV (Teich) 57.80 mL ESV (Teich) 31.90 mL LV Diastology E Decel Time 97.00 (160-240 msec) E/A Ratio 0.3 MED E' 4.90 (< 7 cm/sec) E'/MED E' Ratio 9.39 (>14) LAT E' 6.20 (<10 cm/sec) E/LAT E' Ratio 7.42 (>14) Mitral Valve MV E Max Etienne. 46.00 (40-130 cm/s) MV A Velocity 169.00 (40-130 cm/s) E/A Ratio 0.27 MV Decel. Time 97.00 (160-240 ms) MV PHT 28.00 ms Tricuspid Valve TR P. Velocity 303.00 cm/s RAP Estimate 10.00 mmHg RVSP 46.80 mmHg Left Ventricle Technically difficult study because of the patient factors and poor acoustic windows. Left atrium is mildly enlarged, left ventricle is normal size, mild concentric left ventricular hypertrophy, there is abnormal septal motion, visually estimated ejection fraction 50% with no obvious regional wall motion abnormality. Diastolic parameters are inconclusive. Right Ventricle Right atrium and right ventricle are normal size and contractility. Aortic Valve Aortic valve is minimally thickened and fibrosed, there is no aortic stenosis or aortic insufficiency. Mitral Valve Mitral valve has mitral calcification, leaflets are minimally thickened, there is no mitral stenosis. There is mild mitral regurgitation. Tricuspid Valve Tricuspid valve grossly normal, there is trace tricuspid regurgitation, calculated right ventricular systolic pressure is 46 mmHg. Pulmonic Valve Pulmonic valve is poorly visualized. Great Vessels Aortic root is normal size. Pericardium No significant pericardial effusion noted. Conclusion 1. Mildly enlarged left atrium, normal left ventricular size, mild concentric left ventricular hypertrophy, visually estimated ejection fraction 50% with no regional wall motion abnormality, diastolic parameters are inconclusive, there is abnormal septal motion. 2. Thickened and calcified aortic valve without aortic stenosis or aortic insufficiency. 3. Mild mitral and trace tricuspid regurgitation, calculated right ventricular systolic pressure 46 mm meters of mercury. 4. No significant pericardial effusion noted. Electronically signed by : Juan M Tomlinson, 11/11/2020 18:17:38
--- NOTE | 2020-11-11 16:30 | PC.NURSE ---
speaking with Angie.
--- NOTE | 2020-11-11 16:31 | XR_ITS ---
PROCEDURE: XR CHEST PORTABLE CLINICAL HISTORY: tachycardia The patient was difficult to position adequately for exam. COMPARISON: CT [facility] CT CHEST W/O CONTRAST from 01/24/2015 CR CXR2 XR chest AP from 04/21/2018 CR CXR1VP XR chest portable from 07/01/2018 CR CXR1VP XR chest portable from 12/09/2018 FINDINGS: There is a prominent skin fold over the left upper thorax. There is no pneumothorax. The hilar areas are not well visualized. Right lower lung field density cannot be excluded. There increased markings throughout the left lung compared with prior x-rays. This raises possibility of infiltrate however exam quality is poor, correlate clinically. IMPRESSION: Possible infiltrate. Markedly limited exam. Dictated by: Amanda Yoder MD 11/11/2020 16:58 Amanda Yoder MD in [place] 11/11/2020 16:58
--- NOTE | 2020-11-11 16:37 | PC.NURSE ---
speaking with Dr. Garcia
[2020-11-11 16:42] LABS: Adenovirus,PCR Not Detected (NotDetected); Bordetella Pertussis Not Detected (NotDetected); Chlamydophila Pneumoniae, PCR Not Detected (NotDetected); Coronavirus 19, PCR Not Detected (NotDetected); Coronavirus 229E Not Detected (NotDetected); Coronavirus NL63 Not Detected (NotDetected); Coronavirus OC43 Not Detected (NotDetected); Coronovirus HKU1,PCR Not Detected (NotDetected); Human Metapneumovirus Not Detected (NotDetected); Influenza A, PCR Not Detected (NotDetected); Influenza AH1, 2009 Not Detected (NotDetected); Influenza AH1, PCR Not Detected (NotDetected); Influenza AH3,PCR Not Detected (NotDetected); Influenza B, PCR Not Detected (NotDetected); Mycoplasma Pneumoniae, PCR Not Detected (NotDetected); Parainfluenza 1, PCR Not Detected (NotDetected); Parainfluenza 2, PCR Not Detected (NotDetected); Parainfluenza 3, PCR Not Detected (NotDetected); Parainfluenza 4, PCR Not Detected (NotDetected); Respiratory Syncytial Virus Not Detected (NotDetected); Rhinovirus/Enterovirus Not Detected (NotDetected)
--- NOTE | 2020-11-11 16:42 | PC.NURSE ---
Rad at bedside
[2020-11-11 16:44] LABS: Microscopic, Urine URINE MICROSCOPIC (MICROSCOPIC)
[2020-11-11 16:51] LABS: Lactic Acid 1.9 mmol/L (0.7-2.1); Occult Blood,Stool Positive (Negative)
[2020-11-11 16:53] LABS: Appearance,Urine CLEAR (Clear); Bilirubin,Urine Negative (Negative); Blood, Urine TRACE-I (Negative); Color,Urine YELLOW (Yellow); Glucose,Urine (UA) 3+ (Negative); Ketones,Urine Negative (Negative); Leukocyte Esterase,Urine TRACE (Negative); Nitrate,Urine Negative (Negative); Protein,Urine TRACE (Negative); Urobilinogen,Urine 0.2 EU/dl (0.2)
[2020-11-11 17:15] LABS: Basophils # 0.1 K/mm3 (0-0.2); Basophils % 0.4 % (0.1-2.0); Chloride 110 mmol/L (98-107); Eosinophils # 0.1 K/mm3 (0.0-0.4); Eosinophils % 0.4 % (0.1-12.0); Hematocrit 46.6 % (37.0-47.0); Lymphocytes % 7.5 % (10-50); Mean Corpuscular HGB Conc 30.1 g/dL (31.8-35.4); Mean Corpuscular Hemoglobin 27.7 pg (27.0-31.2); Mean Corpuscular Volume 92.1 fl (81-99); Mean Platelet Volume 10.7 fl (7.4-10.4); Monocytes # 1.4 K/mm3 (0.1-1.0); Monocytes % 10.4 % (1.7-9.3); Neutrophils # 11.2 K/mm3 (1.8-7.8); Neutrophils % 81.3 % (37.0-80.0); Platelet Count 141 K/mm3 (142-424); Potassium 3.2 mmoL/L (3.5-5.1); Red Blood Count 5.05 M/mm3 (4.20-5.40); Red Cell Distribution Width 15.1 % (11.5-17.5); White Blood Count 13.8 K/mm3 (4.8-10.8)
[2020-11-11 17:17] LABS: Creatinine Clearance Estimated 40 mL/min (50-200); Estimated Glomerular Filt Rate 39 ml/min (>60); GFR (African American) 47 ML/MIN (>60)
[2020-11-11 17:19] LABS: Alanine Aminotransferase 16 U/L (12-78); Albumin Level 2.9 g/dl (3.5-5.0); Albumin/Globulin Ratio 0.9 (1.1-1.8); Alkaline Phosphatase 99 U/L (38-126); Aspartate Amino Transferase 19 U/L (14-36); Bilirubin,Total 0.4 mg/dl (0.2-1.3); Calcium 8.6 mg/dl (8.4-10.2); Globulin 3.4 g/dL (1.3-3.2); Total Protein,Serum 6.3 g/dl (6.3-8.2)
[2020-11-11 17:20] LABS: Anion Gap 11.2 mEq/L (5-15)
[2020-11-11 17:23] LABS: Blood Urea Nitrogen 103 mg/dl (7-17); Carbon Dioxide > 40 mmol/L (22.0-30.0); Glucose 426 mg/dl (74-100); Sodium 158 mmol/L (136-145)
--- NOTE | 2020-11-11 17:23 | PC.NURSE ---
LAB CALLED WITH CRITICALS/NOTIFICATIONS SODIUM 158....... GLUCOSE 426..........CO2 ABOVE 40................BUN 103 AWARE
[2020-11-11 17:30] LABS: Bacteria,Urine 1+ /lpf
[2020-11-11 17:32] LABS: Troponin I 0.08 ng/ml (0.00-0.034)
[2020-11-11 17:52] LABS: VBG Base Excess 18.5 mmol/L (-2.4-2.3); VBG Oxygen Saturation 95.3 % (50-70); VBG PCO2 49.3 mmol/L (35-51); VBG PH 7.54 mmol/L (7.31-7.41); VBG PO2 69.2 mmol/L (28-40); VBG Total CO2 42.5 mmol/L (23-27)
[2020-11-11 17:59] LABS: Acetone, Serum (Rapid) None Detected (None Detect)
--- NOTE | 2020-11-11 18:22 | PC.NURSE ---
notified [facility] worker of admission
--- NOTE | 2020-11-11 20:28 | PC.NURSE ---
patient up to floor via stretcher.
[2020-11-11 21:57] LABS: POC Glucose,Bedside 205 (70-110)
--- NOTE | 2020-11-11 22:33 | HMH.HP ---
*Admission Date: 11/11/20 *Chief complaint: altered mental status *History of present illness: pt with fever and altered mental status at formerly [facility] and was sent to the ed -out in by ambulance from the retirement. Patient is nonverbal is unable to give any history herself. The history relayed to me by nursing staff that the patient was sent for high blood sugar, change in her behavior, fever. Also noted to have an episode of coffee-ground emesis last Saturday, 6 days ago. She is reported to be DNR. pt was noted to have several issues -which included fever - sirs, abn electrolytes and prob ugi bleed - also had abn ekg with elevated troponin - pt was admitted with [facility] and ivf and abx [facility] History I have reviewed the patient's past medical history: Yes Medical History: Reports:: Anxiety, Congestive Heart Failure, Coronary Artery Disease, Dementia, Depression, Diabetes Mellitus Type 1, Diabetes Mellitus Type 2, Hyperlipidemia, Hypertension, Peripheral Vascular Disease, Transient Ischemic Attacks (TIA), Urinary Tract Infection Denies:: Atrial Fibrillation, Cancer, Internal Pacemaker, MRSA *Have you ever received a pneumonia vaccine?: No (not in facility medical record) *Have you received a flu vaccine this season?: No (not in facility medical record) Other Medical History: Reports: Anemia, Glaucoma Other Surgeries: No: Pacemaker Amputation: No Fractures: No - *Social History Smoking Status: Never smoker Alcohol Intake: never *Occupational Status:: other Housing: retirement Household Members: other *Travel in the last 8 weeks: None - Psychiatric History Pschychiatric History:: Reports:: Anxiety, Depression Family Hx:: Unable to obtain Review of Systems - Review of Systems Review of systems:: unable to obtain Meds Home Medications Medication Instructions Recorded Confirmed Type acetaminophen 500 mg tablet 500 mg G-TUBE Q6HP PRN 11/15/17 11/12/20 History amlodipine 5 mg tablet 5 mg G-TUBE DAILY 11/15/17 11/12/20 History isosorbide dinitrate 30 mg tablet 30 mg G-TUBE BID tab 11/15/17 11/12/20 History Insulin Glargine,Hum.rec.anlog 10 unit SQ 0800 12/09/18 11/12/20 History [Lantus Solostar 100 Units/mL 3mL flexpen] cloNIDine [Clonidine] 1 each TD FR 12/09/18 11/12/20 History Lactulose [Enulose] 10 gm PO DAILY 04/07/20 11/12/20 History hydrOXYzine pamoate [Vistaril 25mg 25 mg PO BID PRN 04/07/20 11/12/20 History capsule] fentaNYL [Fentanyl] 1 patch TRANSDERMA Q72H 11/11/20 11/12/20 History Allergies Allergy/AdvReac Type Severity Reaction Status Date / Time egg [From EGGS (FOOD/DRUG)] Allergy Intermediate I-RASH Verified 11/07/20 13:46 peanut Allergy Intermediate UNK Verified 11/07/20 13:46 [From PEANUTS (FOOD/DRUG)] Penicillins [PENICILLINS] Allergy Intermediate Verified 11/07/20 13:46 Exam Vital signs and Labs for Last 24 Hours: Temp Pulse Resp BP Pulse Ox 97.0 F L 110 H 30 H 116/79 89 L 11/11/20 20:28 11/11/20 22:00 11/11/20 20:28 11/11/20 20:28 11/11/20 20:28 Laboratory Results - last 24 hr 11/11/20 15:50: Lactate 1.9 11/11/20 15:50: Stool Occult Blood Positive A 11/11/20 15:50: Chlamy pneumoniae PCR Not detected, Adenovirus (PCR) Not detected, B. pertussis DNA (PCR) Not detected, Coronavirus OC43 (PCR) Not detected, Coronavirus HKU1 (PCR) Not detected, Coronavirus 229E (PCR) Not detected, SARS-CoV-2 (PCR) Not detected, Coronavirus NL63 (PCR) Not detected, Human Metapneumovir PCR Not detected, Influenza A (H1) PCR Not detected, Influ A (H1N1/09) PCR Not detected, Influenza A (H3) PCR Not detected, Influenza Type A (PCR) Not detected, Influenza Type B (PCR) Not detected, M. pneumoniae (PCR) Not detected, Parainfluenza 1 (PCR) Not detected, Parainfluenza 2 (PCR) Not detected, Parainfluenza 3 (PCR) Not detected, Parainfluenza 4 (PCR) Not detected, RSV (PCR) Not detected, Entero/Rhino (PCR) Not detected 11/11/20 16:32: Urine Color Yellow, Urine Appearance Clear, Urine pH 6.0, Ur Specif
[2020-11-12] VITALS: BP 121/87; PULSE 110; PULSE 75; RESP 24; TEMP 36.3; O2SAT 100
[2020-11-12 04:00] VITALS: BP 120/66; PULSE 113; RESP 24; TEMP 36.3; O2SAT 92
[2020-11-12 05:00] VITALS: BMI 22.1
--- NOTE | 2020-11-12 05:55 | PC.NURSE ---
Pt has been asleep and nonverbal this entire shift. Pt awakes to light pain, but not name. Pt has been a q2h turn and oral care this shift. Gonzalez cath is draining cloudy, bright yellow urine w/ sediment per gravity. Rhonchi heard t/o all lung dubois. Wet, productive cough noted. Pt continues to tolerate 2 L NC appropriately w/ o2 sats @ 94 or above. No other acute changes at this time.
[2020-11-12 07:07] LABS: Basophils % 0.2 % (0.1-2.0); Hematocrit 42.5 % (37.0-47.0); Lymphocytes # 1.3 K/mm3 (0.7-4.5); Mean Corpuscular HGB Conc 30.6 g/dL (31.8-35.4); Mean Corpuscular Hemoglobin 28.2 pg (27.0-31.2); Mean Corpuscular Volume 92.3 fl (81-99); Mean Platelet Volume 10.8 fl (7.4-10.4); Monocytes # 1.5 K/mm3 (0.1-1.0); Monocytes % 10.8 % (1.7-9.3); Neutrophils # 11.2 K/mm3 (1.8-7.8); Neutrophils % 79.9 % (37.0-80.0); Platelet Count 145 K/mm3 (142-424); Red Cell Distribution Width 15.2 % (11.5-17.5)
[2020-11-12 07:25] LABS: POC Glucose,Bedside 64 (70-110)
[2020-11-12 07:28] LABS: Chloride 118 mmol/L (98-107)
[2020-11-12 07:29] LABS: Potassium 3.2 mmoL/L (3.5-5.1)
[2020-11-12 07:32] LABS: Creatinine Clearance Estimated 41 mL/min (50-200); Estimated Glomerular Filt Rate 53 ml/min (>60); GFR (African American) 64 ML/MIN (>60); Glucose 75 mg/dl (74-100)
[2020-11-12 07:39] LABS: Anion Gap 8.2 mEq/L (5-15)
[2020-11-12 07:56] LABS: Carbon Dioxide 40 mmol/L (22.0-30.0); Sodium 163 mmol/L (136-145)
[2020-11-12 07:57] LABS: Blood Urea Nitrogen 79 mg/dl (7-17)
[2020-11-12 08:00] VITALS: BP 116/58; PULSE 103; RESP 22; TEMP 35.9; O2SAT 97
--- NOTE | 2020-11-12 08:00 | PC.NURSE ---
LAB CALLED WITH CRITICAL RESULTS. NA 163, Cl 118. CO2 40, and BUN 79. DR JUSTIN NOTIFIED.
--- NOTE | 2020-11-12 08:38 | PC.NURSE ---
CALLED [facility] TO SEE WHAT PATIENT'S NORMAL REGIMEN IS FOR TUBE FEEDS. SHE STATED SHE TAKES DIASOURCE THERE WITH A RATE OF 50ML/HR Q 24 HOURS AND 125CC FLUSHES EVERY 4 HOURS. Scott PEDROZA IN DIETARY NOTIFIED.
--- NOTE | 2020-11-12 09:29 | HMH.PHACONS ---
- Pharmacy Consult Date: 11/12/20 Time: 09:29 Referring provider: DR. JUSTIN Reason for Consult:: VANCOMYCIN DOSING Allergies and ADEs:: Allergies Allergy/AdvReac Type Severity Reaction Status Date / Time egg [From EGGS (FOOD/DRUG)] Allergy Intermediate I-RASH Verified 11/07/20 13:46 peanut Allergy Intermediate UNK Verified 11/07/20 13:46 [From PEANUTS (FOOD/DRUG)] Penicillins [PENICILLINS] Allergy Intermediate Unknown Verified 11/12/20 08:53 allergy reaction Home Medications:: Home Medications Medication Instructions Recorded Confirmed Type acetaminophen 500 mg tablet 500 mg G-TUBE Q6HP PRN 11/15/17 11/12/20 History amlodipine 5 mg tablet 5 mg G-TUBE DAILY 11/15/17 11/12/20 History isosorbide dinitrate 30 mg tablet 30 mg G-TUBE BID tab 11/15/17 11/12/20 History Insulin Glargine,Hum.rec.anlog 10 unit SQ 0800 12/09/18 11/12/20 History [Lantus Solostar 100 Units/mL 3mL flexpen] cloNIDine [Clonidine] 1 each TD FR 12/09/18 11/12/20 History Lactulose [Enulose] 10 gm PO DAILY 04/07/20 11/12/20 History hydrOXYzine pamoate [Vistaril 25mg 25 mg PO BID PRN 04/07/20 11/12/20 History capsule] fentaNYL [Fentanyl] 1 patch TRANSDERMA Q72H 11/11/20 11/12/20 History Height: 1.65 m Weight: 60.2 kg Laboratory Results:: Laboratory Results - last 24 hr 11/11/20 15:50: Lactate 1.9 11/11/20 15:50: Stool Occult Blood Positive A 11/11/20 15:50: Chlamy pneumoniae PCR Not detected, Adenovirus (PCR) Not detected, B. pertussis DNA (PCR) Not detected, Coronavirus OC43 (PCR) Not detected, Coronavirus HKU1 (PCR) Not detected, Coronavirus 229E (PCR) Not detected, SARS-CoV-2 (PCR) Not detected, Coronavirus NL63 (PCR) Not detected, Human Metapneumovir PCR Not detected, Influenza A (H1) PCR Not detected, Influ A (H1N1/09) PCR Not detected, Influenza A (H3) PCR Not detected, Influenza Type A (PCR) Not detected, Influenza Type B (PCR) Not detected, M. pneumoniae (PCR) Not detected, Parainfluenza 1 (PCR) Not detected, Parainfluenza 2 (PCR) Not detected, Parainfluenza 3 (PCR) Not detected, Parainfluenza 4 (PCR) Not detected, RSV (PCR) Not detected, Entero/Rhino (PCR) Not detected 11/11/20 16:32: Urine Color Yellow, Urine Appearance Clear, Urine pH 6.0, Ur Specific [place] 1.010, Urine Protein Trace, Urine Glucose (UA) 3+, Urine Ketones Negative, Urine Blood Trace-i, Urine Nitrate Negative, Urine Bilirubin Negative, Urine Urobilinogen 0.2, Ur Leukocyte Esterase Trace, Urine WBC 5-10, Ur Squamous Epith Cells 5-10, Urine Bacteria 1+ 11/11/20 17:03: Troponin I 0.08 H 11/11/20 17:03: WBC 13.8 H, RBC 5.05, Hgb 14.0, Hct 46.6, MCV 92.1, MCH 27.7, MCHC 30.1 L, RDW 15.1, Plt Count 141 L, MPV 10.7 H, Neut % (Auto) 81.3 H, Lymph % (Auto) 7.5 L, [place] % (Auto) 10.4 H, Eos % (Auto) 0.4, Baso % (Auto) 0.4, Neut # (Auto) 11.2 H, Lymph # (Auto) 1.0, [place] # (Auto) 1.4 H, Eos # (Auto) 0.1, Baso # (Auto) 0.1 11/11/20 17:03: Sodium 158 H*, Potassium 3.2 L, Chloride 110 H, Carbon Dioxide > 40 H*, Anion Gap 11.2, BUN 103 H*, Creatinine 1.30 H, Estimated Creat Clear 40, Estimated GFR 39 L, Est GFR ( Amer) 47 L, Glucose 426 H*, Calcium 8.6, Total Bilirubin 0.4, AST 19, ALT 16, Alkaline Phosphatase 99, Total Protein 6.3, Albumin 2.9 L, Globulin 3.4 H, Albumin/Globulin Ratio 0.9 L 11/11/20 17:03: Acetone Level None detected 11/11/20 17:37: VBG pH 7.54 H, VBG pCO2 49.3, VBG pO2 69.2 H, VBG HCO3 41.0 H, VBG Total CO2 42.5 H, VBG O2 Saturation 95.3 H, VBG Base Excess 18.5 H 11/11/20 21:41: POC Glucose 205 H 11/12/20 06:42: POC Glucose 64 L 11/12/20 06:48: WBC 14.0 H, RBC 4.60, Hgb 13.0, Hct 42.5, MCV 92.3, MCH 28.2, MCHC 30.6 L, RDW 15.2, Plt Count 145, MPV 10.8 H, Neut % (Auto) 79.9, Lymph % (Auto) 9.0 L, [place] % (Auto) 10.8 H, Eos % (Auto) 0.0 L, Baso % (Auto) 0.2, Neut # (Auto) 11.2 H, Lymph # (Auto) 1.3, [place] # (Auto) 1.5 H, Eos # (Auto) 0.0, Baso # (Auto) 0.0 11/12/20 06:48: Sodium 163 H*, Potassium 3.2 L, Chloride 118 H, Carbon Dioxide 40 H, Anion Gap 8.2, BUN 79 H
--- NOTE | 2020-11-12 09:34 | HMH.ACPN2 ---
Internal Medicine - PN: Subj *Date: 11/13/20 *Time: 07:05 Interval history: more alert at this time -labs were reviewed - Exam Vital signs and Labs for Last 24 Hours: Temp Pulse Resp BP Pulse Ox 96.6 F L 103 H 22 116/58 L 97 11/12/20 08:00 11/12/20 08:00 11/12/20 08:00 11/12/20 08:00 11/12/20 08:00 Laboratory Results - last 24 hr 11/11/20 15:50: Lactate 1.9 11/11/20 15:50: Stool Occult Blood Positive A 11/11/20 15:50: Chlamy pneumoniae PCR Not detected, Adenovirus (PCR) Not detected, B. pertussis DNA (PCR) Not detected, Coronavirus OC43 (PCR) Not detected, Coronavirus HKU1 (PCR) Not detected, Coronavirus 229E (PCR) Not detected, SARS-CoV-2 (PCR) Not detected, Coronavirus NL63 (PCR) Not detected, Human Metapneumovir PCR Not detected, Influenza A (H1) PCR Not detected, Influ A (H1N1/09) PCR Not detected, Influenza A (H3) PCR Not detected, Influenza Type A (PCR) Not detected, Influenza Type B (PCR) Not detected, M. pneumoniae (PCR) Not detected, Parainfluenza 1 (PCR) Not detected, Parainfluenza 2 (PCR) Not detected, Parainfluenza 3 (PCR) Not detected, Parainfluenza 4 (PCR) Not detected, RSV (PCR) Not detected, Entero/Rhino (PCR) Not detected 11/11/20 16:32: Urine Color Yellow, Urine Appearance Clear, Urine pH 6.0, Ur Specific [place] 1.010, Urine Protein Trace, Urine Glucose (UA) 3+, Urine Ketones Negative, Urine Blood Trace-i, Urine Nitrate Negative, Urine Bilirubin Negative, Urine Urobilinogen 0.2, Ur Leukocyte Esterase Trace, Urine WBC 5-10, Ur Squamous Epith Cells 5-10, Urine Bacteria 1+ 11/11/20 17:03: Troponin I 0.08 H 11/11/20 17:03: WBC 13.8 H, RBC 5.05, Hgb 14.0, Hct 46.6, MCV 92.1, MCH 27.7, MCHC 30.1 L, RDW 15.1, Plt Count 141 L, MPV 10.7 H, Neut % (Auto) 81.3 H, Lymph % (Auto) 7.5 L, [place] % (Auto) 10.4 H, Eos % (Auto) 0.4, Baso % (Auto) 0.4, Neut # (Auto) 11.2 H, Lymph # (Auto) 1.0, [place] # (Auto) 1.4 H, Eos # (Auto) 0.1, Baso # (Auto) 0.1 11/11/20 17:03: Sodium 158 H*, Potassium 3.2 L, Chloride 110 H, Carbon Dioxide > 40 H*, Anion Gap 11.2, BUN 103 H*, Creatinine 1.30 H, Estimated Creat Clear 40, Estimated GFR 39 L, Est GFR ( Amer) 47 L, Glucose 426 H*, Calcium 8.6, Total Bilirubin 0.4, AST 19, ALT 16, Alkaline Phosphatase 99, Total Protein 6.3, Albumin 2.9 L, Globulin 3.4 H, Albumin/Globulin Ratio 0.9 L 11/11/20 17:03: Acetone Level None detected 11/11/20 17:37: VBG pH 7.54 H, VBG pCO2 49.3, VBG pO2 69.2 H, VBG HCO3 41.0 H, VBG Total CO2 42.5 H, VBG O2 Saturation 95.3 H, VBG Base Excess 18.5 H 11/11/20 21:41: POC Glucose 205 H 11/12/20 06:42: POC Glucose 64 L 11/12/20 06:48: WBC 14.0 H, RBC 4.60, Hgb 13.0, Hct 42.5, MCV 92.3, MCH 28.2, MCHC 30.6 L, RDW 15.2, Plt Count 145, MPV 10.8 H, Neut % (Auto) 79.9, Lymph % (Auto) 9.0 L, [place] % (Auto) 10.8 H, Eos % (Auto) 0.0 L, Baso % (Auto) 0.2, Neut # (Auto) 11.2 H, Lymph # (Auto) 1.3, [place] # (Auto) 1.5 H, Eos # (Auto) 0.0, Baso # (Auto) 0.0 11/12/20 06:48: Sodium 163 H*, Potassium 3.2 L, Chloride 118 H, Carbon Dioxide 40 H, Anion Gap 8.2, BUN 79 H, Creatinine 1.00 D, Estimated Creat Clear 41, Estimated GFR 53 L, Est GFR ( Amer) 64 D, Glucose 75 D, Calcium 8.0 L I & O for Last 24 hours: Intake & Output 11/09/20 11/10/20 11/11/20 11/12/20 11:59 11:59 11:59 11:59 Intake Total 1500 / 1500 Output Total 500 / 500 Balance 1000 / 1000 Weight 132 lb 11.492 oz - Constitutional no acute distress - *Routine HEENT Exam Head: Present: normocephalic Eye: Present: EOMI, PERRL ENT: Present: mucous membranes dry - *Routine Neck Exam Absent: full ROM - *Routine Respiratory Exam Present: decreased breath sounds - *Routine Cardiovascular Exam Present: RRR - *Routine Abdominal Exam Present: other (g tube ) - *Routine Extremities Exam Absent: full ROM - *Routine Skin Exam Absent: rash - *Routine Neurological Exam Present: altered mental status - Routine Psychiatric Exam Present: unable to assess Assessment and Plan (1) Hypokalemia
[2020-11-12 09:36] VITALS: BMI 22.1
[2020-11-12 11:29] LABS: POC Glucose,Bedside 117 (70-110)
[2020-11-12 12:00] VITALS: BP 125/70; PULSE 113; RESP 22; TEMP 37.2; O2SAT 98
--- NOTE | 2020-11-12 13:53 | HMH.PHAVTE ---
[facility] Pharmacy VTE Monitoring - Patient Demographics Admission date: 11/11/20 Report Date: 11/12/20 Time: 13:53 Allergies/Adverse Reactions: Patient Allergies egg [From EGGS (FOOD/DRUG)] Allergy (Intermediate, Verified 11/07/20 13:46) I-RASH peanut [From PEANUTS (FOOD/DRUG)] Allergy (Intermediate, Verified 11/07/20 13:46) UNK Penicillins [PENICILLINS] Allergy (Intermediate, Verified 11/12/20 08:53) Unknown allergy reaction Height: 1.65 m Weight: 60.2 kg Patient Problems: Current Active Problems Dehydration (Acute) Diabetes (Acute) Hypernatremia (Acute) Pneumonia (Acute) Abnormal EKG (Acute) Hyperglycemia (Acute) Occult blood in stools (Acute) Hypokalemia (Acute) ARABELLA (acute kidney injury) (Acute) Elevated troponin (Acute) UTI (urinary tract infection) (Acute) UGIB (upper gastrointestinal bleed) (Acute) LVH (left ventricular hypertrophy) (Acute) SIRS (systemic inflammatory response syndrome) (Acute) - VTE Risk Labs: VTE Related Lab Results Hgb 13.0 g/dL (12.2-16.2) 11/12/20 06:48 Hct 42.5 % (37.0-47.0) 11/12/20 06:48 Plt Count 145 K/mm3 (142-424) 11/12/20 06:48 BUN 79 mg/dl (7-17) H 11/12/20 06:48 Creatinine 1.00 mg/dl (0.52-1.04) D 11/12/20 06:48 Estimated Creat Clear 41 mL/min (50-200) 11/12/20 06:48 Was VTE Risk Assessment Performed: Yes VTE Risk Level: Moderate Risk - Prophylaxis VTE Prophylaxis Ordered?: Yes Types of VTE Prophylaxis: TEDS Knee High Location of Applied Device: Bilateral Lower Extremeties
--- NOTE | 2020-11-12 15:11 | PC.NURSE ---
Pt unable to follow direction and cough to produce sputum.
[2020-11-12 15:52] LABS: POC Glucose,Bedside 152 (70-110)
[2020-11-12 16:00] VITALS: BP 133/68; PULSE 113; RESP 19; TEMP 37.2; O2SAT 98
--- NOTE | 2020-11-12 16:14 | PC.NURSE ---
PT RESPONDS TO PAIN ONLY. PT IS NONVERBARL. THIS IS HER BASELINE PER DR JUSTIN. PT HAS SLEPT ALL OF SHIFT. RESPIRATIONS REGULAR AND UNLABORED. PT HAS TOLERATED 2L NC WELL THROUGHOUT SHIFT. RHONCHI NOTED THROUGHOUT. NO COUGH PRESENT. +2 PULSES NOTED THROUGHOUT. ACTIVE BOWEL SOUNDS HEARD IN ALL 4 QUADRANTS. SOFT AND NONTENDER ABDOMEN. NO EDEMA NOTED. NO BM THUS FAR. WILEY CATH IN PLACE W BRIGHT YELLOW URINE NOTED. NO KINKS NOTED. PT DOESN'T APPEAR TO BE IN ANY PAIN. PT TURNED Q2 HOURS TO PREVENT SKIN BREAKDOWN. ORAL CARE PERFORMED Q2 HOURS. TUBE FEEDING IN PLACE. PT HAS TOLERATED WELL THUS FAR. HOB ELEVATED ABOVE 45 DEGREES THROUGHOUT SHIFT. PT HAS RECEIVED SEVERAL ANTIBIOTICS THIS SHIFT AND TOLERATED ALL WELL. BED IN LOWEST POSITION. CALL LIGHT WITHIN REACH. VSS. WILL CONTINUE TO MONITOR.
[2020-11-12 20:00] VITALS: BP 118/76; PULSE 119; RESP 17; TEMP 36.6; O2SAT 99
[2020-11-12 20:53] LABS: POC Glucose,Bedside 199 (70-110)
--- NOTE | 2020-11-12 23:07 | PC.NURSE ---
report to JOSE Bhatt
--- NOTE | 2020-11-12 23:44 | PC.NURSE ---
Report received from Clementina Joel RN at 2315. Pt is currently resting on (R) side. Pt is currently on 2L O2 NC. NS infusing @ 150 ml/hr. Glucerna infusing @ 35 ml/hr per kangaroo pump. Residual checked per An Joel RN of 60 ml. Feedings were not advanced. F/C draining to bedside. No other concerns. Will continue to monitor.
[2020-11-13] VITALS (8 sets, daily range): BP systolic 118–154; BP diastolic 74–90; PULSE 96–106; RESP 14–18; TEMP 36.3–37.1; O2SAT 98–100; BMI 22.8
[2020-11-13 06:42] LABS: POC Glucose,Bedside 236 (70-110)
--- NOTE | 2020-11-13 07:23 | PC.NURSE ---
Glucerna feeding was increased from 35 ml/hr to 45 ml/hr after residual of 5 ml noted. Pt currently resting on (L) side at this time. F/C draining to bedside. Lungs are diminished t/o. Pt remains on 2L O2 NC. Medications administered per mar.Will continue to monitor.
[2020-11-13 08:40] LABS: Anion Gap 3.9 mEq/L (5-15); Blood Urea Nitrogen 53 mg/dl (7-17); Calcium 7.3 mg/dl (8.4-10.2); Carbon Dioxide 33 mmol/L (22.0-30.0); Creatinine Clearance Estimated 42 mL/min (50-200); Estimated Glomerular Filt Rate 69 ml/min (>60); GFR (African American) 83 ML/MIN (>60); Glucose 266 mg/dl (74-100)
--- NOTE | 2020-11-13 08:43 | HMH.ACPN2 ---
Internal Medicine - PN: Subj *Date: 11/14/20 *Time: 06:17 Interval history: more alert today - will draw blood for lab Exam Vital signs and Labs for Last 24 Hours: Temp Pulse Resp BP Pulse Ox 97.3 F L 96 H 18 118/80 100 11/13/20 07:22 11/13/20 07:22 11/13/20 07:22 11/13/20 07:22 11/13/20 07:22 Laboratory Results - last 24 hr 11/12/20 11:17: POC Glucose 117 H 11/12/20 15:44: POC Glucose 152 H 11/12/20 20:35: POC Glucose 199 H 11/13/20 06:18: POC Glucose 236 H I & O for Last 24 hours: Intake & Output 11/10/20 11/11/20 11/12/20 11/13/20 11:59 11:59 11:59 11:59 Intake Total 1500 / 1500 2976 / 2976 Output Total 500 / 500 850 / 850 Balance 1000 / 1000 2126 / 2126 Weight 132 lb 11.492 oz 136 lb 14.513 oz Microbiology Reports for the Last 24 Hours: Microbiology 11/12/20 10:10 Urine,Catheterized Urine Culture - Preliminary 11/12/20 23:05 Sputum - Expectorated Sputum Gram Stain - Final - Constitutional thin - *Routine HEENT Exam Head: Present: normocephalic Eye: Present: EOMI, PERRL ENT: Present: mucous membranes dry - *Routine Neck Exam Absent: JVD - *Routine Respiratory Exam Present: decreased breath sounds - *Routine Cardiovascular Exam Present: RRR - *Routine Abdominal Exam Present: soft - *Routine Extremities Exam Absent: joint swelling - *Routine Skin Exam Present: intact - *Routine Neurological Exam Present: altered mental status - Routine Psychiatric Exam Present: unable to assess Assessment and Plan (1) Hypokalemia Status: Acute Category: Medical Code(s): E87.6 - Hypokalemia (2) Hypernatremia Status: Acute Category: Medical Code(s): E87.0 - Hyperosmolality and hypernatremia (3) ARABELLA (acute kidney injury) Status: Acute Category: Medical Code(s): N17.9 - Acute kidney failure, unspecified (4) Elevated troponin Status: Acute Category: Medical Code(s): R77.8 - Other specified abnormalities of plasma proteins (5) UTI (urinary tract infection) Status: Acute Qualifiers: Urinary tract infection type: site unspecified Hematuria presence: without hematuria Qualified Code(s): N39.0 - Urinary tract infection, site not specified Category: Medical Code(s): N39.0 - Urinary tract infection, site not specified (6) UGIB (upper gastrointestinal bleed) Status: Acute Category: Medical Code(s): K92.2 - Gastrointestinal hemorrhage, unspecified (7) LVH (left ventricular hypertrophy) Status: Acute Category: Medical Code(s): I51.7 - Cardiomegaly (8) Abnormal EKG Status: Acute Category: Medical Code(s): R94.31 - Abnormal electrocardiogram [ECG] [EKG] (9) Occult blood in stools Status: Acute Category: Medical Code(s): R19.5 - Other fecal abnormalities (10) Diabetes Status: Acute Qualifiers: Diabetes mellitus type: type 1 Diabetes mellitus complication status: with other specified complication Qualified Code(s): E10.69 - Type 1 diabetes mellitus with other specified complication Category: Medical Code(s): E11.9 - Type 2 diabetes mellitus without complications (11) SIRS (systemic inflammatory response syndrome) Status: Acute Category: Medical Code(s): R65.10 - Systemic inflammatory response syndrome (SIRS) of non-infectious origin without acute organ dysfunction
[2020-11-13 08:51] LABS: Chloride 128 mmol/L (98-107); Potassium 2.9 mmoL/L (3.5-5.1); Sodium 162 mmol/L (136-145)
--- NOTE | 2020-11-13 08:52 | PC.NURSE ---
LAB CALLED W CRITICAL VALUES. NA 162, K 2.9, Cl 128. DR JUSTIN NOTIFIED.
[2020-11-13 11:16] LABS: POC Glucose,Bedside 214 (70-110)
--- NOTE | 2020-11-13 15:30 | PC.NURSE ---
PT RESPONDS TO PAIN ONLY. PT IS NONVERBARL. PT HAS SLEPT ALL OF SHIFT. RESPIRATIONS REGULAR AND UNLABORED. PT HAS TOLERATED 2L NC WELL THROUGHOUT SHIFT. RHONCHI NOTED THROUGHOUT. OCCASIONAL DRY, NONPRODUCTIVE COUGH PRESENT. +2 PULSES NOTED THROUGHOUT. ACTIVE BOWEL SOUNDS HEARD IN ALL 4 QUADRANTS. SOFT AND NONTENDER ABDOMEN. NO EDEMA NOTED. 2 SOFT, BROWN BMS NOTED THIS SHIFT. PT CHANGED NEEDED. WILEY CATH IN PLACE W CLEAR YELLOW URINE NOTED. NO KINKS NOTED. PT DOESN'T APPEAR TO BE IN ANY PAIN. PT TURNED Q2 HOURS TO PREVENT SKIN BREAKDOWN. ORAL CARE PERFORMED Q2 HOURS. TUBE FEEDING IN PLACE. PT HAS TOLERATED WELL THUS FAR. PT IS RECEIVING GLUCERNA CONTINUOUSLY WITH A RATE OF 45 CURRENTLY. GOAL TO GET TO 60. RESIDUAL CHECKED Q 6 HOURS. RESIDUAL NOTED AT 55. HOB ELEVATED ABOVE 45 DEGREES THROUGHOUT SHIFT. PT HAS RECEIVED SEVERAL ANTIBIOTICS THIS SHIFT AND TOLERATED ALL WELL. PT RECEIVED BED BATH AND LINEN CHANGE THIS SHIFT. 1/2NS W 20K INFUSING AT 75ML/HR. TEDS IN PLACE. BED IN LOWEST POSITION. CALL LIGHT WITHIN REACH. VSS. WILL CONTINUE TO MONITOR.
[2020-11-13 16:26] LABS: POC Glucose,Bedside 143 (70-110)
[2020-11-13 20:34] LABS: POC Glucose,Bedside 325 (70-110)
[2020-11-14 03:12] LABS: Potassium 3.2 mmoL/L (3.5-5.1)
[2020-11-14 03:15] LABS: Alanine Aminotransferase 13 U/L (12-78); Albumin Level 2.2 g/dl (3.5-5.0); Albumin/Globulin Ratio 0.8 (1.1-1.8); Alkaline Phosphatase 83 U/L (38-126); Anion Gap 5.2 mEq/L (5-15); Aspartate Amino Transferase 20 U/L (14-36); Bilirubin,Total 0.5 mg/dl (0.2-1.3); Blood Urea Nitrogen 39 mg/dl (7-17); Carbon Dioxide 32 mmol/L (22.0-30.0); Creatinine Clearance Estimated 42 mL/min (50-200); Estimated Glomerular Filt Rate 60 ml/min (>60); GFR (African American) 72 ML/MIN (>60); Globulin 2.8 g/dL (1.3-3.2)
[2020-11-14 03:16] LABS: Calcium 7.1 mg/dl (8.4-10.2); Glucose 230 mg/dl (74-100)
[2020-11-14 03:18] LABS: Chloride 127 mmol/L (98-107); Sodium 161 mmol/L (136-145)
[2020-11-14 03:46] VITALS: BP 131/72; PULSE 93; RESP 16; TEMP 36.9; O2SAT 91
--- NOTE | 2020-11-14 03:55 | PC.NURSE ---
Pt has been a q2h turn and oral care this shift. q6h residual performed at 0000- 70 mL. Gonzalez cath draining cloudy, bright yellow urine. Rhonchi heard t/o all lung dubois per auscultation. Sking remain CDI. No other acute changes or complaints at this time.
[2020-11-14 04:00] LABS: Vancomycin,Trough 8.1 ug/mL (5.0-10.0)
[2020-11-14 04:46] VITALS: BMI 23.4
--- NOTE | 2020-11-14 05:55 | PC.NURSE ---
0600 residual volume 0ml Feed rate increased to 60 ml/hr
[2020-11-14 06:04] LABS: Basophils % 0.2 % (0.1-2.0); Eosinophils # 0.1 K/mm3 (0.0-0.4); Eosinophils % 0.9 % (0.1-12.0); Hematocrit 36.8 % (37.0-47.0); Hemoglobin 11.1 g/dL (12.2-16.2); Lymphocytes # 1.2 K/mm3 (0.7-4.5); Lymphocytes % 8.8 % (10-50); Mean Corpuscular HGB Conc 30.2 g/dL (31.8-35.4); Mean Corpuscular Hemoglobin 28.6 pg (27.0-31.2); Mean Corpuscular Volume 94.8 fl (81-99); Mean Platelet Volume 11.9 fl (7.4-10.4); Monocytes # 0.9 K/mm3 (0.1-1.0); Monocytes % 6.6 % (1.7-9.3); Neutrophils # 11.1 K/mm3 (1.8-7.8); Neutrophils % 83.5 % (37.0-80.0); Platelet Count 122 K/mm3 (142-424); Red Blood Count 3.88 M/mm3 (4.20-5.40); Red Cell Distribution Width 15.2 % (11.5-17.5); White Blood Count 13.3 K/mm3 (4.8-10.8)
[2020-11-14 06:07] LABS: POC Glucose,Bedside 280 (70-110)
[2020-11-14 07:44] VITALS: BP 102/57; PULSE 104; RESP 22; TEMP 37.5; O2SAT 100
--- NOTE | 2020-11-14 08:47 | HMH.ACPN2 ---
Internal Medicine - PN: Subj *Date: 11/14/20 *Time: 08:47 Exam Vital signs and Labs for Last 24 Hours: Temp Pulse Resp BP Pulse Ox 99.5 F 104 H 22 102/57 L 100 11/14/20 07:44 11/14/20 07:44 11/14/20 07:44 11/14/20 07:44 11/14/20 07:44 Laboratory Results - last 24 hr 11/13/20 08:20: Sodium 162 H*, Potassium 2.9 L*, Chloride 128 H, Carbon Dioxide 33 H, Anion Gap 3.9 L, BUN 53 H D, Creatinine 0.80, Estimated Creat Clear 42, Estimated GFR 69, Est GFR ( Amer) 83 D, Glucose 266 H, Calcium 7.3 L 11/13/20 11:09: POC Glucose 214 H 11/13/20 16:19: POC Glucose 143 H 11/13/20 20:08: POC Glucose 325 H* 11/14/20 02:40: Vancomycin Trough 8.1 11/14/20 02:40: Sodium 161 H*, Potassium 3.2 L, Chloride 127 H, Carbon Dioxide 32 H, Anion Gap 5.2, BUN 39 H D, Creatinine 0.90, Estimated Creat Clear 42, Estimated GFR 60, Est GFR ( Amer) 72, Glucose 230 H, Calcium 7.1 L, Total Bilirubin 0.5, AST 20, ALT 13, Alkaline Phosphatase 83, Total Protein 5.0 L, Albumin 2.2 L, Globulin 2.8, Albumin/Globulin Ratio 0.8 L 11/14/20 02:40: WBC 13.3 H, RBC 3.88 L, Hgb 11.1 L, Hct 36.8 L, MCV 94.8, MCH 28.6, MCHC 30.2 L, RDW 15.2, Plt Count 122 L, MPV 11.9 H, Neut % (Auto) 83.5 H, Lymph % (Auto) 8.8 L, [place] % (Auto) 6.6, Eos % (Auto) 0.9, Baso % (Auto) 0.2, Neut # (Auto) 11.1 H, Lymph # (Auto) 1.2, [place] # (Auto) 0.9, Eos # (Auto) 0.1, Baso # (Auto) 0.0 11/14/20 05:52: POC Glucose 280 H I & O for Last 24 hours: Intake & Output 11/11/20 11/12/20 11/13/20 11/14/20 11:59 11:59 11:59 11:59 Intake Total 1500 / 1500 2976 / 2976 4713 / 4713 Output Total 500 / 500 850 / 850 1225 / 1225 Balance 1000 / 1000 2126 / 2126 3488 / 3488 Weight 132 lb 11.492 oz 136 lb 14.513 oz 140 lb 14.006 oz Microbiology Reports for the Last 24 Hours: Microbiology 11/11/20 15:50 Blood Blood Culture - Preliminary NO GROWTH AFTER 48 HOURS 11/11/20 15:50 Blood Blood Culture - Preliminary NO GROWTH AFTER 48 HOURS 11/12/20 10:10 Urine,Catheterized Urine Culture - Preliminary - Constitutional no acute distress, chronically ill appearing - *Routine HEENT Exam Head: Present: normocephalic Eye: Present: PERRL ENT: Present: mucous membranes moist - *Routine Neck Exam Present: supple. Absent: lymphadenopathy - *Routine Respiratory Exam Present: CTA bilaterally - *Routine Cardiovascular Exam Present: RRR - *Routine Abdominal Exam Present: soft, normoactive bowel sounds. Absent: tenderness Comments: peg tube placement - *Routine Exam Comments: whitley at bedside - *Routine Extremities Exam Present: normal capillary refill. Absent: cyanosis, clubbing, edema - *Routine Skin Exam Present: warm. Absent: rash - *Routine Neurological Exam Present: alert - Routine Psychiatric Exam Present: normal affect Assessment and Plan (1) Hypokalemia Status: Acute Category: Medical Code(s): E87.6 - Hypokalemia (2) Hypernatremia Status: Acute Category: Medical Code(s): E87.0 - Hyperosmolality and hypernatremia (3) ARABELLA (acute kidney injury) Status: Acute Category: Medical Code(s): N17.9 - Acute kidney failure, unspecified (4) Elevated troponin Status: Acute Category: Medical Code(s): R77.8 - Other specified abnormalities of plasma proteins (5) UTI (urinary tract infection) Status: Acute Qualifiers: Urinary tract infection type: site unspecified Hematuria presence: without hematuria Qualified Code(s): N39.0 - Urinary tract infection, site not specified Category: Medical Code(s): N39.0 - Urinary tract infection, site not specified (6) UGIB (upper gastrointestinal bleed) Status: Acute Category: Medical Code(s): K92.2 - Gastrointestinal hemorrhage, unspecified (7) LVH (left ventricular hypertrophy) Status: Acute Category: Medical Code(s): I51.7 - Cardiomegaly (8) Abnormal EKG Status: Acute Category: Medical
--- NOTE | 2020-11-14 09:15 | HMH.PHACONS ---
- Pharmacy Consult Date: 11/14/20 Time: 09:15 Referring provider: PAT Reason for Consult:: VANCOMYCIN THERAPY Allergies and ADEs:: Allergies Allergy/AdvReac Type Severity Reaction Status Date / Time egg [From EGGS (FOOD/DRUG)] Allergy Intermediate I-RASH Verified 11/07/20 13:46 peanut Allergy Intermediate UNK Verified 11/07/20 13:46 [From PEANUTS (FOOD/DRUG)] Penicillins [PENICILLINS] Allergy Intermediate Unknown Verified 11/12/20 08:53 allergy reaction Home Medications:: Home Medications Medication Instructions Recorded Confirmed Type acetaminophen 500 mg tablet 100 mg G-TUBE Q6HP PRN 11/15/17 11/12/20 History amlodipine 5 mg tablet 5 mg G-TUBE DAILY 11/15/17 11/12/20 History isosorbide dinitrate 30 mg tablet 30 mg G-TUBE BID tab 11/15/17 11/12/20 History Insulin Glargine,Hum.rec.anlog 10 unit SQ 0800 12/09/18 11/12/20 History [Lantus Solostar 100 Units/mL 3mL flexpen] cloNIDine [Clonidine] 0.2 mg TD FR 12/09/18 11/12/20 History Lactulose [Enulose] 10 gm PO DAILYP PRN 04/07/20 11/12/20 History hydrOXYzine pamoate [Vistaril 25mg 25 mg PO BID PRN 04/07/20 11/12/20 History capsule] fentaNYL [Fentanyl] 25 mcg TRANSDERMA Q72H 11/11/20 11/12/20 History Metoclopramide HCl [Reglan 5mg 5 mg PO QID 11/12/20 11/12/20 History Tablet] ondansetron HCL [Ondansetron 4mg 4 mg PO Q8HP PRN 11/12/20 11/12/20 History tab*] Height: 1.65 m Weight: 63.9 kg Laboratory Results:: Laboratory Results - last 24 hr 11/13/20 11:09: POC Glucose 214 H 11/13/20 16:19: POC Glucose 143 H 11/13/20 20:08: POC Glucose 325 H* 11/14/20 02:40: Vancomycin Trough 8.1 11/14/20 02:40: Sodium 161 H*, Potassium 3.2 L, Chloride 127 H, Carbon Dioxide 32 H, Anion Gap 5.2, BUN 39 H D, Creatinine 0.90, Estimated Creat Clear 42, Estimated GFR 60, Est GFR ( Amer) 72, Glucose 230 H, Calcium 7.1 L, Total Bilirubin 0.5, AST 20, ALT 13, Alkaline Phosphatase 83, Total Protein 5.0 L, Albumin 2.2 L, Globulin 2.8, Albumin/Globulin Ratio 0.8 L 11/14/20 02:40: WBC 13.3 H, RBC 3.88 L, Hgb 11.1 L, Hct 36.8 L, MCV 94.8, MCH 28.6, MCHC 30.2 L, RDW 15.2, Plt Count 122 L, MPV 11.9 H, Neut % (Auto) 83.5 H, Lymph % (Auto) 8.8 L, [place] % (Auto) 6.6, Eos % (Auto) 0.9, Baso % (Auto) 0.2, Neut # (Auto) 11.1 H, Lymph # (Auto) 1.2, [place] # (Auto) 0.9, Eos # (Auto) 0.1, Baso # (Auto) 0.0 11/14/20 05:52: POC Glucose 280 H Medical History: Reports:: Anxiety, Congestive Heart Failure, Coronary Artery Disease, Dementia, Depression, Diabetes Mellitus Type 1, Diabetes Mellitus Type 2, Hyperlipidemia, Hypertension, Peripheral Vascular Disease, Transient Ischemic Attacks (TIA), Urinary Tract Infection Denies:: Atrial Fibrillation, Cancer, Internal Pacemaker, MRSA Assessment and Plan (1) Hypokalemia Status: Acute Category: Medical Code(s): E87.6 - Hypokalemia (2) Hypernatremia Status: Acute Category: Medical Code(s): E87.0 - Hyperosmolality and hypernatremia (3) ARABELLA (acute kidney injury) Status: Acute Category: Medical Code(s): N17.9 - Acute kidney failure, unspecified (4) Elevated troponin Status: Acute Category: Medical Code(s): R77.8 - Other specified abnormalities of plasma proteins (5) UTI (urinary tract infection) Status: Acute Qualifiers: Urinary tract infection type: site unspecified Hematuria presence: without hematuria Qualified Code(s): N39.0 - Urinary tract infection, site not specified Category: Medical Code(s): N39.0 - Urinary tract infection, site not specified (6) UGIB (upper gastrointestinal bleed) Status: Acute Category: Medical Code(s): K92.2 - Gastrointestinal hemorrhage, unspecified (7) LVH (left ventricular hypertrophy) Status: Acute Category: Medical Code(s): I51.7 - Cardiomegaly (8) Abnormal EKG Status: Acute Category: Medical Code(s): R94.31 - Abnormal electrocardiogram [ECG] [EKG] (9) Occult blood in stools Status: Acute Category: Medical Code(s):
--- NOTE | 2020-11-14 09:19 | SW/DCPLANNER ---
Addendum entered by Katty Coleman 11/16/20 13:42: I have updated Danelle balderrama/ [facility] regarding this patient. Addendum entered by Katty Coleman 11/15/20 09:44: Updated patient information has been faxed to Danelle at [facility]. Original Note: This patient currently resides at [facility]. I have spoke with Danelle from [facility] this morning and she has stated that patient is currently [facility] level of care.
--- NOTE | 2020-11-14 10:34 | DIET.NUTRFU ---
Pt tolerating tube feeds well, reached goal rate of 60ml/h this am. Normal bowel function, weight up 4#, Improved hypokalemia and renal function, continued hypernatremia and increased BUN (though improved). BG are erratic- avg. 230. Fluids changed to NaCl/KCl at 75ml/h. Recommend minimal water flushes for irrigation of 30ml q 6h, when IVF dc'd add water flushes of 125ml q 6h. Continuing to monitor and alter as indicated.
[2020-11-14 12:20] LABS: POC Glucose,Bedside 168 (70-110)
--- NOTE | 2020-11-14 15:51 | PC.NURSE ---
Pt is nonverbal and a total care. She remains on 2L NC with O2 sats in the 90's. She has had a loose BM today. Tube feeds are infusing at goal rate and pt tolerating well. Last residual was 0 mls. Extremities are contracted. Pt is a q2h turn and q2h oral care. She has 1/2NS w/20K+ infusing at 150 mls/hr. Gonzalez is to gravity draining cloudy, yellow urine. Glucose treated per SSI (150 & 168). Will continue to monitor.
[2020-11-14 16:00] VITALS: BP 133/74; PULSE 113; RESP 18; TEMP 37; O2SAT 100
[2020-11-14 16:07] LABS: POC Glucose,Bedside 150 (70-110)
[2020-11-14 19:50] VITALS: O2SAT 98
[2020-11-14 20:00] VITALS: BP 159/83; PULSE 124; RESP 24; TEMP 37.3; O2SAT 98
--- NOTE | 2020-11-14 20:53 | PC.NURSE ---
RA BAUMANN 95% RETURN PT TO 2LPM N/C
[2020-11-14 21:09] LABS: POC Glucose,Bedside 185 (70-110)
[2020-11-15] VITALS: BP 159/89; PULSE 108; RESP 22; TEMP 37; O2SAT 98
[2020-11-15 04:00] VITALS: BP 151/79; PULSE 109; RESP 22; TEMP 37.1; O2SAT 99
[2020-11-15 05:00] VITALS: BMI 23.8
[2020-11-15 06:17] LABS: POC Glucose,Bedside 232 (70-110)
[2020-11-15 07:11] LABS: Basophils % 0.1 % (0.1-2.0); Eosinophils # 0.2 K/mm3 (0.0-0.4); Eosinophils % 1.5 % (0.1-12.0); Hematocrit 36.2 % (37.0-47.0); Hemoglobin 10.9 g/dL (12.2-16.2); Lymphocytes # 1.3 K/mm3 (0.7-4.5); Lymphocytes % 8.8 % (10-50); Mean Corpuscular Hemoglobin 27.8 pg (27.0-31.2); Mean Corpuscular Volume 92.7 fl (81-99); Mean Platelet Volume 10.7 fl (7.4-10.4); Monocytes # 0.6 K/mm3 (0.1-1.0); Monocytes % 3.6 % (1.7-9.3); Neutrophils # 13.1 K/mm3 (1.8-7.8); Platelet Count 111 K/mm3 (142-424); Red Cell Distribution Width 15.4 % (11.5-17.5); White Blood Count 15.3 K/mm3 (4.8-10.8)
[2020-11-15 07:23] LABS: MANUAL DIFFERENTIAL MANUAL DIFFERENTIAL (MANUAL DIFF)
[2020-11-15 07:25] LABS: Chloride 122 mmol/L (98-107); Potassium 4.3 mmoL/L (3.5-5.1)
--- NOTE | 2020-11-15 07:25 | PC.NURSE ---
pt has had no acute changes. vss. iv patent and infusing per order. whitley draining clear yellow urine. turned q2h. no residual on residual checks. tube feed running at 60ml/hr. call light in reach. will continue to monitor
[2020-11-15 07:28] LABS: Blood Urea Nitrogen 24 mg/dl (7-17); Creatinine Clearance Estimated 44 mL/min (50-200); Estimated Glomerular Filt Rate 69 ml/min (>60); GFR (African American) 83 ML/MIN (>60)
[2020-11-15 07:29] LABS: Anion Gap 7.3 mEq/L (5-15); Carbon Dioxide 28 mmol/L (22.0-30.0); Glucose 266 mg/dl (74-100)
[2020-11-15 07:41] LABS: Calcium 6.7 mg/dl (8.4-10.2)
[2020-11-15 07:42] LABS: Sodium 153 mmol/L (136-145)
[2020-11-15 08:00] VITALS: BP 164/77; PULSE 107; RESP 16; TEMP 36.9; O2SAT 99
[2020-11-15 08:26] LABS: Lymphocytes % 8 % (10-50); Monocytes % 3 % (2-9); Neutrophils % 86 % (42-76); Platelet Estimate Normal; RBC Morphology Normal; Total Cells Counted 100
--- NOTE | 2020-11-15 08:33 | HMH.ACPN2 ---
Internal Medicine - PN: Subj *Date: 11/15/20 *Time: 08:40 Interval history: 85-year-old female patient resting in bed quietly does not respond to verbal or tactile stimuli. Sodium today 153, potassium 4.3 will continue current medical regimen. Will DC Gonzalez Exam Vital signs and Labs for Last 24 Hours: Temp Pulse Resp BP Pulse Ox 98.7 F 109 H 22 151/79 H 99 11/15/20 04:00 11/15/20 04:00 11/15/20 04:00 11/15/20 04:00 11/15/20 04:00 Laboratory Results - last 24 hr 11/14/20 12:09: POC Glucose 168 H 11/14/20 15:59: POC Glucose 150 H 11/14/20 20:46: POC Glucose 185 H 11/15/20 06:08: POC Glucose 232 H 11/15/20 06:57: WBC 15.3 H, RBC 3.90 L, Hgb 10.9 L, Hct 36.2 L, MCV 92.7, MCH 27.8, MCHC 30.0 L, RDW 15.4, Plt Count 111 L, MPV 10.7 H, Neut % (Auto) 86.0 H, Lymph % (Auto) 8.8 L, [place] % (Auto) 3.6, Eos % (Auto) 1.5, Baso % (Auto) 0.1, Neut # (Auto) 13.1 H, Lymph # (Auto) 1.3, [place] # (Auto) 0.6, Eos # (Auto) 0.2, Baso # (Auto) 0.0, Total Counted 100, Neutrophils % (Manual) 86 H, Band Neutrophils % 3.0, Lymphocytes % (Manual) 8 L, Monocytes % (Manual) 3, Platelet Estimate Normal, RBC Morphology Normal 11/15/20 06:57: Sodium 153 H*, Potassium 4.3 D, Chloride 122 H, Carbon Dioxide 28, Anion Gap 7.3, BUN 24 H D, Creatinine 0.80, Estimated Creat Clear 44, Estimated GFR 69, Est GFR ( Amer) 83, Glucose 266 H, Calcium 6.7 L I & O for Last 24 hours: Intake & Output 11/12/20 11/13/20 11/14/20 11/15/20 23:59 23:59 23:59 23:59 Intake Total 2976 / 2976 3705 / 3705 2934 / 2934 3162 / 3162 Output Total 500 / 1350 2075 / 2075 450 / 450 Balance 2476 / 1626 1630 / 1630 2934 / 2684 2712 / 2712 Weight 132 lb 11.492 oz 136 lb 14.513 oz 140 lb 14.006 oz 143 lb 7 oz Microbiology Reports for the Last 24 Hours: Microbiology 11/12/20 23:05 Sputum - Expectorated Sputum Gram Stain - Final 11/12/20 23:05 Sputum - Expectorated Sputum Sputum Culture - Preliminary 11/12/20 10:10 Urine,Catheterized Urine Culture - Preliminary - Constitutional no acute distress, chronically ill appearing - *Routine HEENT Exam Head: Present: normocephalic Eye: Present: EOMI ENT: Present: mucous membranes moist - *Routine Neck Exam Present: trachea midline. Absent: tracheal deviation - *Routine Respiratory Exam Present: CTA bilaterally. Absent: accessory muscle use - *Routine Cardiovascular Exam Present: RRR - *Routine Abdominal Exam Present: soft, normoactive bowel sounds. Absent: tenderness, firm Comments: GT Placement - *Routine Extremities Exam Present: pulses intact. Absent: cyanosis - *Routine Skin Exam Present: intact, dry, warm. Absent: cyanosis, erythema - Routine Psychiatric Exam Present: unable to assess Assessment and Plan (1) Hypokalemia Status: Acute Category: Medical Code(s): E87.6 - Hypokalemia (2) Hypernatremia Status: Acute Category: Medical Code(s): E87.0 - Hyperosmolality and hypernatremia (3) ARABELLA (acute kidney injury) Status: Acute Category: Medical Code(s): N17.9 - Acute kidney failure, unspecified (4) Elevated troponin Status: Acute Category: Medical Code(s): R77.8 - Other specified abnormalities of plasma proteins (5) UTI (urinary tract infection) Status: Acute Qualifiers: Urinary tract infection type: site unspecified Hematuria presence: without hematuria Qualified Code(s): N39.0 - Urinary tract infection, site not specified Category: Medical Code(s): N39.0 - Urinary tract infection, site not specified (6) UGIB (upper gastrointestinal bleed) Status: Acute Category: Medical Code(s): K92.2 - Gastrointestinal hemorrhage, unspecified (7) LVH (left ventricular hypertrophy) Status: Acute Category: Medical Code(s): I51.7 - Cardiomegaly (8) Abnormal EKG Status: Acute Category: Medical Code(s): R94.31 - Abnormal electrocardiogram [ECG] [EKG] (9) Occult blood in stools Status: Acute Category: Medical Code
--- NOTE | 2020-11-15 09:06 | HMH.ACPN ---
Internal Medicine - PN: Subj *Date: 11/15/20 *Time: 09:07 Exam Vital signs and Labs for Last 24 Hours: Temp Pulse Resp BP Pulse Ox 98.5 F 107 H 16 164/77 H 99 11/15/20 08:00 11/15/20 08:00 11/15/20 08:00 11/15/20 08:00 11/15/20 08:00 Laboratory Results - last 24 hr 11/14/20 12:09: POC Glucose 168 H 11/14/20 15:59: POC Glucose 150 H 11/14/20 20:46: POC Glucose 185 H 11/15/20 06:08: POC Glucose 232 H 11/15/20 06:57: WBC 15.3 H, RBC 3.90 L, Hgb 10.9 L, Hct 36.2 L, MCV 92.7, MCH 27.8, MCHC 30.0 L, RDW 15.4, Plt Count 111 L, MPV 10.7 H, Neut % (Auto) 86.0 H, Lymph % (Auto) 8.8 L, [place] % (Auto) 3.6, Eos % (Auto) 1.5, Baso % (Auto) 0.1, Neut # (Auto) 13.1 H, Lymph # (Auto) 1.3, [place] # (Auto) 0.6, Eos # (Auto) 0.2, Baso # (Auto) 0.0, Total Counted 100, Neutrophils % (Manual) 86 H, Band Neutrophils % 3.0, Lymphocytes % (Manual) 8 L, Monocytes % (Manual) 3, Platelet Estimate Normal, RBC Morphology Normal 11/15/20 06:57: Sodium 153 H*, Potassium 4.3 D, Chloride 122 H, Carbon Dioxide 28, Anion Gap 7.3, BUN 24 H D, Creatinine 0.80, Estimated Creat Clear 44, Estimated GFR 69, Est GFR ( Amer) 83, Glucose 266 H, Calcium 6.7 L I & O for Last 24 hours: Intake & Output 11/12/20 11/13/20 11/14/20 11/15/20 23:59 23:59 23:59 23:59 Intake Total 2976 / 2976 3705 / 3705 2934 / 2934 3162 / 3162 Output Total 500 / 1350 2075 / 2075 450 / 450 Balance 2476 / 1626 1630 / 1630 2934 / 2684 2712 / 2712 Weight 60.2 kg 62.1 kg 63.9 kg 65.062 kg Microbiology Reports for the Last 24 Hours: Microbiology 11/12/20 23:05 Sputum - Expectorated Sputum Gram Stain - Final 11/12/20 23:05 Sputum - Expectorated Sputum Sputum Culture - Preliminary 11/12/20 10:10 Urine,Catheterized Urine Culture - Preliminary Assessment and Plan (1) Hypokalemia Status: Acute Category: Medical Code(s): E87.6 - Hypokalemia (2) Hypernatremia Status: Acute Category: Medical Code(s): E87.0 - Hyperosmolality and hypernatremia (3) ARABELLA (acute kidney injury) Status: Acute Category: Medical Code(s): N17.9 - Acute kidney failure, unspecified (4) Elevated troponin Status: Acute Category: Medical Code(s): R77.8 - Other specified abnormalities of plasma proteins (5) UTI (urinary tract infection) Status: Acute Qualifiers: Urinary tract infection type: site unspecified Hematuria presence: without hematuria Qualified Code(s): N39.0 - Urinary tract infection, site not specified Category: Medical Code(s): N39.0 - Urinary tract infection, site not specified (6) UGIB (upper gastrointestinal bleed) Status: Acute Category: Medical Code(s): K92.2 - Gastrointestinal hemorrhage, unspecified (7) LVH (left ventricular hypertrophy) Status: Acute Category: Medical Code(s): I51.7 - Cardiomegaly (8) Abnormal EKG Status: Acute Category: Medical Code(s): R94.31 - Abnormal electrocardiogram [ECG] [EKG] (9) Occult blood in stools Status: Acute Category: Medical Code(s): R19.5 - Other fecal abnormalities (10) Diabetes Status: Acute Qualifiers: Diabetes mellitus type: type 1 Diabetes mellitus complication status: with other specified complication Qualified Code(s): E10.69 - Type 1 diabetes mellitus with other specified complication Category: Medical Code(s): E11.9 - Type 2 diabetes mellitus without complications (11) SIRS (systemic inflammatory response syndrome) Status: Acute Category: Medical Code(s): R65.10 - Systemic inflammatory response syndrome (SIRS) of non-infectious origin without acute organ dysfunction (12) G tube feedings Status: Acute Category: Medical Code(s): Z93.1 - Gastrostomy status (13) Personal history of transient ischemic attack (TIA), 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
[2020-11-15 11:11] LABS: POC Glucose,Bedside 212 (70-110)
[2020-11-15 11:27] VITALS: BP 159/81; PULSE 115; RESP 16; TEMP 36.9; O2SAT 99
[2020-11-15 16:00] VITALS: BP 154/86; PULSE 109; RESP 16; TEMP 36.8; O2SAT 97
[2020-11-15 17:04] LABS: POC Glucose,Bedside 196 (70-110)
[2020-11-15 17:28] LABS: Vancomycin,Trough 11.4 ug/mL (5.0-10.0)
--- NOTE | 2020-11-15 18:43 | PC.NURSE ---
Pt nonverbal and a total care. She is more alert today than yesterday. She has attempted to bite staff on several occasions. Tube feeds infusing at goal rate. Residuals were 5mls and 9 mls on assessment. Glucose 241 and 198 on checks. Insulin administered per sliding scale. [place] updated on patients plan of care. Will continue to monitor.
[2020-11-15 20:00] VITALS: BP 193/101; PULSE 107; RESP 22; TEMP 36.9; O2SAT 96
[2020-11-15 21:11] LABS: POC Glucose,Bedside 84 (70-110)
[2020-11-16] VITALS (7 sets, daily range): BP systolic 146–178; BP diastolic 79–102; PULSE 110–126; RESP 20–24; TEMP 36.6–37.3; O2SAT 95–100; BMI 23.6
[2020-11-16 06:05] LABS: POC Glucose,Bedside 202 (70-110)
[2020-11-16 07:50] LABS: Basophils # 0.1 K/mm3 (0-0.2); Basophils % 0.2 % (0.1-2.0); Eosinophils # 0.2 K/mm3 (0.0-0.4); Eosinophils % 0.9 % (0.1-12.0); Hemoglobin 12.2 g/dL (12.2-16.2); Lymphocytes # 1.1 K/mm3 (0.7-4.5); Lymphocytes % 6.1 % (10-50); Mean Corpuscular HGB Conc 29.9 g/dL (31.8-35.4); Mean Corpuscular Hemoglobin 26.9 pg (27.0-31.2); Mean Corpuscular Volume 90.3 fl (81-99); Mean Platelet Volume 12.3 fl (7.4-10.4); Monocytes # 0.9 K/mm3 (0.1-1.0); Neutrophils # 16.2 K/mm3 (1.8-7.8); Neutrophils % 87.7 % (37.0-80.0); Platelet Count 76 K/mm3 (142-424); Red Blood Count 4.54 M/mm3 (4.20-5.40); Red Cell Distribution Width 15.3 % (11.5-17.5); White Blood Count 18.4 K/mm3 (4.8-10.8)
[2020-11-16 07:53] LABS: MANUAL DIFFERENTIAL MANUAL DIFFERENTIAL (MANUAL DIFF)
[2020-11-16 08:18] LABS: Chloride 119 mmol/L (98-107); Potassium 4.7 mmoL/L (3.5-5.1); Sodium 145 mmol/L (136-145)
[2020-11-16 08:21] LABS: Anion Gap 7.7 mEq/L (5-15); Blood Urea Nitrogen 16 mg/dl (7-17); Carbon Dioxide 23 mmol/L (22.0-30.0); Creatinine Clearance Estimated 43 mL/min (50-200); Estimated Glomerular Filt Rate 95 ml/min (>60); GFR (African American) 116 ML/MIN (>60); Glucose 208 mg/dl (74-100)
--- NOTE | 2020-11-16 09:20 | HMH.ACPN2 ---
Internal Medicine - PN: Subj *Date: 11/16/20 *Time: 11:08 Interval history: 85-year-old female patient sitting up in bed, no respiratory distress noted. Oxygen saturation 98% on room air. Sodium today is 145 and potassium 4.7. We will stop IV fluids add free water boluses 100 cc 3 times daily and consider discharge back to group home tomorrow. Exam Vital signs and Labs for Last 24 Hours: Temp Pulse Resp BP Pulse Ox 98.9 F 115 H 20 150/79 H 98 11/16/20 08:00 11/16/20 08:00 11/16/20 08:00 11/16/20 08:00 11/16/20 08:00 Laboratory Results - last 24 hr 11/15/20 10:59: POC Glucose 212 H 11/15/20 16:25: Vancomycin Trough 11.4 H 11/15/20 16:44: POC Glucose 196 H 11/15/20 20:34: POC Glucose 84 11/16/20 05:37: POC Glucose 202 H 11/16/20 07:19: WBC 18.4 H, RBC 4.54, Hgb 12.2, Hct 41.0, MCV 90.3, MCH 26.9 L, MCHC 29.9 L, RDW 15.3, Plt Count 76 L D, MPV 12.3 H, Neut % (Auto) 87.7 H, Lymph % (Auto) 6.1 L, [place] % (Auto) 5.0, Eos % (Auto) 0.9, Baso % (Auto) 0.2, Neut # (Auto) 16.2 H, Lymph # (Auto) 1.1, [place] # (Auto) 0.9, Eos # (Auto) 0.2, Baso # (Auto) 0.1 I & O for Last 24 hours: Intake & Output 11/13/20 11/14/20 11/15/20 11/16/20 23:59 23:59 23:59 23:59 Intake Total 3705 / 3705 2934 / 2934 5373 / 5373 2927 / 2927 Output Total 2075 / 2075 1200 / 1200 Balance 1630 / 1630 2934 / 2684 4173 / 4173 2927 / 2927 Weight 136 lb 14.513 oz 140 lb 14.006 oz 143 lb 7 oz 142 lb 3 oz Microbiology Reports for the Last 24 Hours: Microbiology 11/12/20 23:05 Sputum - Expectorated Sputum Gram Stain - Final 11/12/20 23:05 Sputum - Expectorated Sputum Sputum Culture - Preliminary 11/12/20 10:10 Urine,Catheterized Urine Culture - Preliminary - Constitutional no acute distress, chronically ill appearing - *Routine HEENT Exam Head: Present: normocephalic Eye: Present: EOMI ENT: Present: mucous membranes moist - *Routine Neck Exam Present: trachea midline. Absent: tracheal deviation - *Routine Respiratory Exam Present: CTA bilaterally. Absent: accessory muscle use - *Routine Cardiovascular Exam Present: RRR, tachycardia - *Routine Abdominal Exam Present: soft, normoactive bowel sounds. Absent: distended, rigid Comments: Peg Tube Placement - *Routine Extremities Exam Present: pulses intact. Absent: cyanosis, clubbing, calf tenderness - *Routine Skin Exam Present: intact, dry, warm. Absent: cyanosis, erythema - *Routine Neurological Exam Present: altered mental status. Absent: oriented X3 - Routine Psychiatric Exam Present: unable to assess Assessment and Plan (1) Hypokalemia Status: Acute Category: Medical Code(s): E87.6 - Hypokalemia (2) Hypernatremia Status: Acute Category: Medical Code(s): E87.0 - Hyperosmolality and hypernatremia (3) ARABELLA (acute kidney injury) Status: Acute Category: Medical Code(s): N17.9 - Acute kidney failure, unspecified (4) Elevated troponin Status: Acute Category: Medical Code(s): R77.8 - Other specified abnormalities of plasma proteins (5) UTI (urinary tract infection) Status: Acute Qualifiers: Urinary tract infection type: site unspecified Hematuria presence: without hematuria Qualified Code(s): N39.0 - Urinary tract infection, site not specified Category: Medical Code(s): N39.0 - Urinary tract infection, site not specified (6) UGIB (upper gastrointestinal bleed) Status: Acute Category: Medical Code(s): K92.2 - Gastrointestinal hemorrhage, unspecified (7) LVH (left ventricular hypertrophy) Status: Acute Category: Medical Code(s): I51.7 - Cardiomegaly (8) Abnormal EKG Status: Acute Category: Medical Code(s): R94.31 - Abnormal electrocardiogram [ECG] [EKG] (9) Occult blood in stools Status: Acute Category: Medical Code(s): R19.5 - Other fecal abnormalities (10) Diabetes Status: Acute Qualifiers: Diabetes mellitus type: type 1 Diabetes mellitus complicati
[2020-11-16 09:29] LABS: Calcium 6.5 mg/dl (8.4-10.2)
[2020-11-16 09:55] LABS: Lymphocytes % 7 % (10-50); Monocytes % 2 % (2-9); Neutrophils % 91 % (42-76); Platelet Estimate Normal; RBC Morphology Normal; Total Cells Counted 100
--- NOTE | 2020-11-16 11:23 | HMH.PHACONS ---
- Pharmacy Consult Date: 11/16/20 Time: 11:23 Referring provider: DR. JUSTIN Reason for Consult:: VANCOMYCIN TROUGH LEVEL Allergies and ADEs:: Allergies Allergy/AdvReac Type Severity Reaction Status Date / Time egg [From EGGS (FOOD/DRUG)] Allergy Intermediate I-RASH Verified 11/07/20 13:46 peanut Allergy Intermediate UNK Verified 11/07/20 13:46 [From PEANUTS (FOOD/DRUG)] Penicillins [PENICILLINS] Allergy Intermediate Unknown Verified 11/12/20 08:53 allergy reaction Home Medications:: Home Medications Medication Instructions Recorded Confirmed Type acetaminophen 500 mg tablet 100 mg G-TUBE Q6HP PRN 11/15/17 11/12/20 History amlodipine 5 mg tablet 5 mg G-TUBE DAILY 11/15/17 11/12/20 History isosorbide dinitrate 30 mg tablet 30 mg G-TUBE BID tab 11/15/17 11/12/20 History Insulin Glargine,Hum.rec.anlog 10 unit SQ 0800 12/09/18 11/12/20 History [Lantus Solostar 100 Units/mL 3mL flexpen] cloNIDine [Clonidine] 0.2 mg TD FR 12/09/18 11/12/20 History Lactulose [Enulose] 10 gm PO DAILYP PRN 04/07/20 11/12/20 History hydrOXYzine pamoate [Vistaril 25mg 25 mg PO BID PRN 04/07/20 11/12/20 History capsule] fentaNYL [Fentanyl] 25 mcg TRANSDERMA Q72H 11/11/20 11/12/20 History Metoclopramide HCl [Reglan 5mg 5 mg PO QID 11/12/20 11/12/20 History Tablet] ondansetron HCL [Ondansetron 4mg 4 mg PO Q8HP PRN 11/12/20 11/12/20 History tab*] Height: 1.65 m Weight: 64.495 kg Laboratory Results:: Laboratory Results - last 24 hr 11/15/20 16:25: Vancomycin Trough 11.4 H 11/15/20 16:44: POC Glucose 196 H 11/15/20 20:34: POC Glucose 84 11/16/20 05:37: POC Glucose 202 H 11/16/20 07:19: WBC 18.4 H, RBC 4.54, Hgb 12.2, Hct 41.0, MCV 90.3, MCH 26.9 L, MCHC 29.9 L, RDW 15.3, Plt Count 76 L D, MPV 12.3 H, Neut % (Auto) 87.7 H, Lymph % (Auto) 6.1 L, [place] % (Auto) 5.0, Eos % (Auto) 0.9, Baso % (Auto) 0.2, Neut # (Auto) 16.2 H, Lymph # (Auto) 1.1, [place] # (Auto) 0.9, Eos # (Auto) 0.2, Baso # (Auto) 0.1, Total Counted 100, Neutrophils % (Manual) 91 H, Lymphocytes % (Manual) 7 L, Monocytes % (Manual) 2, Platelet Estimate Normal, RBC Morphology Normal 11/16/20 07:19: Sodium 145, Potassium 4.7, Chloride 119 H, Carbon Dioxide 23, Anion Gap 7.7, BUN 16 D, Creatinine 0.60 D, Estimated Creat Clear 43, Estimated GFR 95, Est GFR ( Amer) 116 D, Glucose 208 H, Calcium 6.5 L Medical History: Reports:: Anxiety, Congestive Heart Failure, Coronary Artery Disease, Dementia, Depression, Diabetes Mellitus Type 1, Diabetes Mellitus Type 2, Hyperlipidemia, Hypertension, Peripheral Vascular Disease, Transient Ischemic Attacks (TIA), Urinary Tract Infection Denies:: Atrial Fibrillation, Cancer, Internal Pacemaker, MRSA Assessment and Plan (1) Hypokalemia Status: Acute Category: Medical Code(s): E87.6 - Hypokalemia (2) Hypernatremia Status: Acute Category: Medical Code(s): E87.0 - Hyperosmolality and hypernatremia (3) ARABELLA (acute kidney injury) Status: Acute Category: Medical Code(s): N17.9 - Acute kidney failure, unspecified (4) Elevated troponin Status: Acute Category: Medical Code(s): R77.8 - Other specified abnormalities of plasma proteins (5) UTI (urinary tract infection) Status: Acute Qualifiers: Qualified Code(s): N39.0 - Urinary tract infection, site not specified Category: Medical Code(s): N39.0 - Urinary tract infection, site not specified (6) UGIB (upper gastrointestinal bleed) Status: Acute Category: Medical Code(s): K92.2 - Gastrointestinal hemorrhage, unspecified (7) LVH (left ventricular hypertrophy) Status: Acute Category: Medical Code(s): I51.7 - Cardiomegaly (8) Abnormal EKG Status: Acute Category: Medical Code(s): R94.31 - Abnormal electrocardiogram [ECG] [EKG] (9) Occult blood in stools Status: Acute Category: Medical Code(s): R19.5 - Other fecal abnormalities (10) Diabetes Status: Acute Qualifiers: Qualified Code(s): E10
--- NOTE | 2020-11-16 12:06 | DIET.NUTRFU ---
Pt tolerated tube feedings well with improvement hypernatremia, pt to dc back to [facility] soon. IVF dc'd, recommend water flushes to provide [facility]. Pt receives tube feedings of Diabetesource @ 50ml/h with water flushes of 125ml q 6h at [facility], providing 1734ml fluids. Pt has been receiving Glucerna (diabetic TF formula available at [facility]) at 60ml/h providing 1228ml free water from formula, water flushes of 125ml q 6h meets additional fluid needs for a total of 1734ml free water. Change made in TF order and stated below. Recommend water flushes of 125ml q 6h, continuing tube feedings of Glucerna 1.0 at 60ml/h.
[2020-11-16 12:25] LABS: POC Glucose,Bedside 219 (70-110)
--- NOTE | 2020-11-16 14:19 | HMH.ACPN ---
Internal Medicine - PN: Subj *Date: 11/16/20 *Time: 14:19 Exam Vital signs and Labs for Last 24 Hours: Temp Pulse Resp BP Pulse Ox 99.0 F 126 H 20 163/102 H 98 11/16/20 12:00 11/16/20 12:00 11/16/20 12:00 11/16/20 12:00 11/16/20 12:00 Laboratory Results - last 24 hr 11/15/20 16:25: Vancomycin Trough 11.4 H 11/15/20 16:44: POC Glucose 196 H 11/15/20 20:34: POC Glucose 84 11/16/20 05:37: POC Glucose 202 H 11/16/20 07:19: WBC 18.4 H, RBC 4.54, Hgb 12.2, Hct 41.0, MCV 90.3, MCH 26.9 L, MCHC 29.9 L, RDW 15.3, Plt Count 76 L D, MPV 12.3 H, Neut % (Auto) 87.7 H, Lymph % (Auto) 6.1 L, [place] % (Auto) 5.0, Eos % (Auto) 0.9, Baso % (Auto) 0.2, Neut # (Auto) 16.2 H, Lymph # (Auto) 1.1, [place] # (Auto) 0.9, Eos # (Auto) 0.2, Baso # (Auto) 0.1, Total Counted 100, Neutrophils % (Manual) 91 H, Lymphocytes % (Manual) 7 L, Monocytes % (Manual) 2, Platelet Estimate Normal, RBC Morphology Normal 11/16/20 07:19: Sodium 145, Potassium 4.7, Chloride 119 H, Carbon Dioxide 23, Anion Gap 7.7, BUN 16 D, Creatinine 0.60 D, Estimated Creat Clear 43, Estimated GFR 95, Est GFR ( Amer) 116 D, Glucose 208 H, Calcium 6.5 L 11/16/20 12:13: POC Glucose 219 H I & O for Last 24 hours: Intake & Output 11/13/20 11/14/20 11/15/20 11/16/20 23:59 23:59 23:59 23:59 Intake Total 3705 / 3705 2934 / 2934 5373 / 5373 2927 / 2927 Output Total 2075 / 2075 1200 / 1200 Balance 1630 / 1630 2934 / 2684 4173 / 4173 2927 / 2927 Weight 62.1 kg 63.9 kg 65.062 kg 64.495 kg Microbiology Reports for the Last 24 Hours: Microbiology 11/12/20 23:05 Sputum - Expectorated Sputum Gram Stain - Final 11/12/20 23:05 Sputum - Expectorated Sputum Sputum Culture - Preliminary Gram Positive Cocci 11/12/20 10:10 Urine,Catheterized Urine Culture - Preliminary Assessment and Plan (1) Hypokalemia Status: Acute Category: Medical Code(s): E87.6 - Hypokalemia (2) Hypernatremia Status: Acute Category: Medical Code(s): E87.0 - Hyperosmolality and hypernatremia (3) ARABELLA (acute kidney injury) Status: Acute Category: Medical Code(s): N17.9 - Acute kidney failure, unspecified (4) Elevated troponin Status: Acute Category: Medical Code(s): R77.8 - Other specified abnormalities of plasma proteins (5) UTI (urinary tract infection) Status: Acute Qualifiers: Urinary tract infection type: site unspecified Hematuria presence: without hematuria Qualified Code(s): N39.0 - Urinary tract infection, site not specified Category: Medical Code(s): N39.0 - Urinary tract infection, site not specified (6) UGIB (upper gastrointestinal bleed) Status: Acute Category: Medical Code(s): K92.2 - Gastrointestinal hemorrhage, unspecified (7) LVH (left ventricular hypertrophy) Status: Acute Category: Medical Code(s): I51.7 - Cardiomegaly (8) Abnormal EKG Status: Acute Category: Medical Code(s): R94.31 - Abnormal electrocardiogram [ECG] [EKG] (9) Occult blood in stools Status: Acute Category: Medical Code(s): R19.5 - Other fecal abnormalities (10) Diabetes Status: Acute Qualifiers: Diabetes mellitus type: type 1 Diabetes mellitus complication status: with other specified complication Qualified Code(s): E10.69 - Type 1 diabetes mellitus with other specified complication Category: Medical Code(s): E11.9 - Type 2 diabetes mellitus without complications (11) SIRS (systemic inflammatory response syndrome) Status: Acute Category: Medical Code(s): R65.10 - Systemic inflammatory response syndrome (SIRS) of non-infectious origin without acute organ dysfunction (12) G tube feedings Status: Acute Category: Medical Code(s): Z93.1 - Gastrostomy status (13) Personal history of transient ischemic attack (TIA), 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
--- NOTE | 2020-11-16 16:21 | PC.NURSE ---
PT HAD A GOOD DAY. TUBE FEEDS GOING AT GOAL RATE ORDERED-- 60ML/HR WITH 150ML WATER FLUSHES Q6HRS SINCE IVF D/C'D. HAVE BEEN CHECKING RESIDUAL Q4HR, WITH 0ML EACH TIME. PT APPEARED TO BE IN PAIN WHEN TURNING PT, PRN MEDICATION GIVEN. PT HAS BEEN TURNED Q2HR. ORAL CARE GIVEN Q2HR WELL. PT RECEIVED A BATH TODAY. VSS. WILL CONT. TO MONITOR.
[2020-11-16 16:54] LABS: POC Glucose,Bedside 187 (70-110)
[2020-11-16 21:53] LABS: POC Glucose,Bedside 145 (70-110)
[2020-11-17] VITALS: BP 145/78; PULSE 124; RESP 22; TEMP 36.7; O2SAT 98
--- NOTE | 2020-11-17 03:30 | PC.NURSE ---
pt has been turned and oral care given q2h. bm today. tube feeding running at goal rate of 60ml/hr. residual of 10ml at last check. iv in bilateral hands leaking and were removed. new iv access obtained. no acute changes. vss. call light in reach. will continue to monitor
[2020-11-17 03:58] VITALS: BP 140/91; PULSE 120; RESP 20; TEMP 36.6; O2SAT 98
--- NOTE | 2020-11-17 04:47 | PC.NURSE ---
kangaroo pump set changed and new tube feed and flush water hung at this time. during iv attempts left fa was stuck, left ua, left breast, right ac. the attempt to left breast did blow and small bruise was noted.
[2020-11-17 05:00] VITALS: BMI 23.8
[2020-11-17 05:59] LABS: POC Glucose,Bedside 229 (70-110)
[2020-11-17 07:35] LABS: Basophils # 0.1 K/mm3 (0-0.2); Basophils % 0.3 % (0.1-2.0); Eosinophils # 0.1 K/mm3 (0.0-0.4); Eosinophils % 0.7 % (0.1-12.0); Hematocrit 37.2 % (37.0-47.0); Hemoglobin 11.6 g/dL (12.2-16.2); Lymphocytes # 1.5 K/mm3 (0.7-4.5); Lymphocytes % 7.8 % (10-50); Mean Corpuscular HGB Conc 31.2 g/dL (31.8-35.4); Mean Corpuscular Hemoglobin 27.6 pg (27.0-31.2); Mean Corpuscular Volume 88.6 fl (81-99); Mean Platelet Volume 11.7 fl (7.4-10.4); Monocytes # 0.7 K/mm3 (0.1-1.0); Monocytes % 3.6 % (1.7-9.3); Neutrophils # 17.3 K/mm3 (1.8-7.8); Neutrophils % 87.7 % (37.0-80.0); Platelet Count 74 K/mm3 (142-424); Red Cell Distribution Width 15.5 % (11.5-17.5); White Blood Count 19.8 K/mm3 (4.8-10.8)
[2020-11-17 07:37] LABS: MANUAL DIFFERENTIAL MANUAL DIFFERENTIAL (MANUAL DIFF)
[2020-11-17 07:58] LABS: Chloride 116 mmol/L (98-107); Potassium 4.8 mmoL/L (3.5-5.1); Sodium 144 mmol/L (136-145)
[2020-11-17 08:00] VITALS: BP 142/78; PULSE 122; RESP 17; TEMP 37.1; O2SAT 98
[2020-11-17 08:01] LABS: Anion Gap 8.8 mEq/L (5-15); Blood Urea Nitrogen 11 mg/dl (7-17); Carbon Dioxide 24 mmol/L (22.0-30.0); Creatinine Clearance Estimated 44 mL/min (50-200); Estimated Glomerular Filt Rate 95 ml/min (>60); GFR (African American) 116 ML/MIN (>60); Glucose 210 mg/dl (74-100)
[2020-11-17 08:12] LABS: Calcium 6.8 mg/dl (8.4-10.2)
--- NOTE | 2020-11-17 09:20 | SW/DCPLANNER ---
Addendum entered by Katty Coleman 11/17/20 14:16: Lab has stated that patients COVID has roughly two hours left. I have informed patients nurse (Leeann) and import/export freight forwarder (Daniela) of situation. Daniela has stated that she will fax COVID results once in computer along with MAR to [facility]. I have updated Danelle with [facility] regarding situation and she has stated it is fine for this patient to discharge back today once COVID results are back. Original Note: This patient will discharge back to [facility] today. I have notified Danelle with [facility] that this patient will return today ICF level of care. Patient will need a COVID swab prior to returning per Danelle. Patient will discharge back this afternoon.
--- NOTE | 2020-11-17 09:31 | HMH.DCSUM ---
General - General Admission date:: 11/11/20 Discharge date: 11/17/20 HPI HPI: pt with fever and altered mental status at formerly [facility] and was sent to the ed -out in by ambulance from the [place] [facility]. Patient is nonverbal is unable to give any history herself. The history relayed to me by nursing staff that the patient was sent for high blood sugar, change in her behavior, fever. Also noted to have an episode of coffee-ground emesis last Saturday, 6 days ago. She is reported to be DNR. pt was noted to have several issues -which included fever - sirs, abn electrolytes and prob ugi bleed - also had abn ekg with elevated troponin - pt was admitted with [facility] and ivf and abx Hospital Course Hospital Course: Laboratory Tests 11/11/20 11/11/20 11/11/20 15:50 15:50 15:50 WBC RBC Hgb Hct MCV MCH MCHC RDW Plt Count MPV Neut % (Auto) Lymph % (Auto) Rankin % (Auto) Eos % (Auto) Baso % (Auto) Neut # (Auto) Lymph # (Auto) Rankin # (Auto) Eos # (Auto) Baso # (Auto) Total Counted Neutrophils % (Manual) Band Neutrophils % Lymphocytes % (Manual) Monocytes % (Manual) Platelet Estimate RBC Morphology VBG pH VBG pCO2 VBG pO2 VBG HCO3 VBG Total CO2 VBG O2 Saturation VBG Base Excess Sodium Potassium Chloride Carbon Dioxide Anion Gap BUN Creatinine Estimated Creat Clear Estimated GFR Est GFR ( Amer) Glucose POC Glucose Lactate 1.9 Calcium Total Bilirubin AST ALT Alkaline Phosphatase Troponin I Total Protein Albumin Globulin Albumin/Globulin Ratio Urine Color Urine Appearance Urine pH Ur Specific [place] Urine Protein Urine Glucose (UA) Urine Ketones Urine Blood Urine Nitrate Urine Bilirubin Urine Urobilinogen Ur Leukocyte Esterase Urine WBC Ur Squamous Epith Cells Urine Bacteria Stool Occult Blood Positive A Vancomycin Trough Acetone Level Chlamy pneumoniae PCR Not detected Adenovirus (PCR) Not detected B. pertussis DNA (PCR) Not detected Coronavirus OC43 (PCR) Not detected Coronavirus HKU1 (PCR) Not detected Coronavirus 229E (PCR) Not detected SARS-CoV-2 (PCR) Not detected Coronavirus NL63 (PCR) Not detected Human Metapneumovir PCR Not detected Influenza A (H1) PCR Not detected Influ A (H1N1/09) PCR Not detected Influenza A (H3) PCR Not detected Influenza Type A (PCR) Not detected Influenza Type B (PCR) Not detected M. pneumoniae (PCR) Not detected Parainfluenza 1 (PCR) Not detected Parainfluenza 2 (PCR) Not detected Parainfluenza 3 (PCR) Not detected Parainfluenza 4 (PCR) Not detected RSV (PCR) Not detected Entero/Rhino (PCR) Not detected 11/11/20 11/11/20 11/11/20 16:32 17:03 17:03 WBC 13.8 H RBC 5.05 Hgb 14.0 Hct 46.6 MCV 92.1 MCH 27.7 MCHC 30.1 L RDW 15.1 Plt Count 141 L MPV 10.7 H Neut % (Auto) 81.3 H Lymph % (Auto) 7.5 L Rankin % (Auto) 10.4 H Eos % (Auto) 0.4 Baso % (Auto) 0.4 Neut # (Auto) 11.2 H Lymph # (Auto) 1.0 Rankin # (Auto) 1.4 H Eos # (Auto) 0.1 Baso # (Auto) 0.1 Total Counted Neutrophils % (Manual) Band Neutrophils % Lymphocytes % (Manual) Monocytes % (Manual) Platelet Estimate RBC Morphology VBG pH VBG pCO2 VBG pO2 VBG HCO3 VBG Total CO2 VBG O2 Saturation VBG Base Excess Sodium Potassium Chloride Carbon Dioxide Anion Gap BUN Creatinine Estimated Creat Clear Estimated GFR Est GFR ( Amer) Glucose POC Glucose Lactate Calcium Total Bilirubin AST ALT Alkaline Phosphatase Troponin I 0.08 H Total Protein Albumin Globulin Albumin/Globulin Ratio Urine Color Yellow Urine Appearan
[2020-11-17 10:22] LABS: Lymphocytes % 11 % (10-50); Monocytes % 3 % (2-9); Neutrophils % 86 % (42-76); Total Cells Counted 100
[2020-11-17 10:23] LABS: Platelet Estimate Slight Decrease; RBC Morphology Normal
[2020-11-17 11:52] LABS: POC Glucose,Bedside 235 (70-110)
[2020-11-17 15:23] VITALS: BP 138/80; PULSE 110; RESP 18; TEMP 36.9; O2SAT 95
--- NOTE | 2020-11-17 16:22 | PC.NURSE ---
PT HAS BEEN TURNED Q2HR TODAY, [facility] GIVEN Q2HR WELL. PT AWAITING FOR COVID SWAB TO COME BACK BEFORE DISCHARGING BACK TO [facility].
--- NOTE | 2020-11-17 16:56 | PC.NURSE ---
REPORT GIVEN TO Robby LAUREN RN AT [facility]. NOW AWAITING AMBULANCE.
[2020-12-14 11:08] LABS: POC Glucose,Bedside 436 (70-110)
== END 2020-11-17 18:57 | DRG 690 ==
LOC: ER 17:46 → 2ND 19:06
PROVIDERS: Nurse Practitioner Family; Admitting Provider Emergency Medicine; Emergency Provider Emergency Medicine; Visit Provider Emergency Medicine
DX: N39.0 Urinary tract infection, site not specified (principal); K92.2 Gastrointestinal hemorrhage, unspecified; R65.10 Systemic inflammatory response syndrome (SIRS) of non-infectious origin without acute organ dysfunction; E87.0 Hyperosmolality and hypernatremia; E87.6 Hypokalemia; I11.0 Hypertensive heart disease with heart failure; E11.9 Type 2 diabetes mellitus without complications; I50.9 Heart failure, unspecified; Z93.1 Gastrostomy status; Z86.73 Personal history of transient ischemic attack (TIA), and cerebral infarction without residual deficits; Z88.0 Allergy status to penicillin; Z79.4 Long term (current) use of insulin; Z91.012 Allergy to eggs; Z91.010 Allergy to peanuts
CPT/HCPCS: 36415; 71045; 80048; 80053; 80202; 81001; 82009; 82272; 82803; 82962; 83605; 84484; 85007; 85025; 87040; 87070; 87077; 87086; 87088; 87186; 87205; 87581; 87633; 87798; 93005; 93306; 94761; 96365; 96367; 96372; 99285; G0328; J1956; J3370; U0003

== ENCOUNTER 2020-12-11 19:51 | Observation (INO) | payer MEDICARE, MEDICAID, SELFPAY ==
[2020-12-11] VITALS (41 sets, daily range): BP systolic 148–210; BP diastolic 91–115; PULSE 114–155; RESP 11–28; TEMP 37.5; O2SAT 93–97; BMI 21.4
--- NOTE | 2020-12-11 19:59 | CT_ITS ---
PROCEDURE: CT ABDOMEN PELVIS W CON CLINICAL INDICATION: vomitting COMPARISON: CT CT ABDOMEN PELVIS WO CON from 04/07/2020 TECHNIQUE: IV Contrast: 75ML Isovue 370 Oral Contrast None Axial images obtained with sagittal and coronal reformats. All CT scans at the facility use one or more dose reduction, viz: automated exposure control, ma/kV adjustment per patient size (including targeted exams where dose is matched to indication, i.e. head), or iterative reconstruction technique. FINDINGS: LOWER THORAX: Patchy area of atelectasis or infiltrate in the left lung base incompletely image. Hiatal hernia. ABDOMEN & PELVIS: The liver, gallbladder, spleen, adrenal glands, pancreas, and kidneys have an unremarkable appearance. There is a PEG tube present in the body of the stomach. No intestinal obstruction or free air. No evidence of appendicitis. There is colonic diverticulosis but no evidence of diverticulitis. Prior hysterectomy. No pelvic mass or abnormal fluid collection. Chronic wedging of L5 unchanged. Gonzalez catheter present with minimal intraluminal gas within the urinary bladder. IMPRESSION: 1. Patchy area of atelectasis or infiltrate in the left lung base. 2. Other incidental findings as described above with no acute abdominal or pelvic findings Dictated by: Carrillo Ramos MD 12/12/2020 06:31 Carrillo Ramos MD in [facility] 12/12/2020 06:31
--- NOTE | 2020-12-11 20:01 | ECG_ITS ---
APPROVED REPORT Exam: Resting ECG HR:159 bpm ECG Measurements Heart Rate [address] 144 P 51 QRSd 136 QRS -33 QT 270 T 137 QTc 439 Conclusion Sinus tachycardia with premature atrial complexes Left axis deviation Nonspecific intraventricular block Cannot rule out Anterior infarct, age undetermined T wave abnormality, consider lateral ischemia Abnormal ECG Electronically signed by : Edgar Robert, 12/12/2020 17:21:40
[2020-12-11 20:07] LABS: POC Glucose,Bedside 261 (70-110)
[2020-12-11 20:08] LABS: Occult Blood,Stool Positive (Negative)
[2020-12-11 20:09] LABS: Basophils # 0.1 K/mm3 (0-0.2); Basophils % 0.4 % (0.1-2.0); Eosinophils % 0.2 % (0.1-12.0); Hematocrit 52.1 % (37.0-47.0); Hemoglobin 16.8 g/dL (12.2-16.2); Lymphocytes # 1.4 K/mm3 (0.7-4.5); Lymphocytes % 9.7 % (10-50); Mean Corpuscular HGB Conc 32.2 g/dL (31.8-35.4); Mean Corpuscular Hemoglobin 28.4 pg (27.0-31.2); Mean Corpuscular Volume 88.3 fl (81-99); Mean Platelet Volume 9.3 fl (7.4-10.4); Monocytes # 0.9 K/mm3 (0.1-1.0); Monocytes % 6.5 % (1.7-9.3); Neutrophils # 11.7 K/mm3 (1.8-7.8); Neutrophils % 83.1 % (37.0-80.0); Platelet Count 261 K/mm3 (142-424); Red Cell Distribution Width 15.6 % (11.5-17.5)
[2020-12-11 20:12] LABS: Alanine Aminotransferase 27 U/L (12-78); Albumin Level 4.3 g/dl (3.5-5.0); Albumin/Globulin Ratio 0.9 (1.1-1.8); Alkaline Phosphatase 126 U/L (38-126); Amylase 152 U/L (30-110); Anion Gap 14.5 mEq/L (5-15); Aspartate Amino Transferase 46 U/L (14-36); Bilirubin,Total 0.8 mg/dl (0.2-1.3); Blood Urea Nitrogen 27 mg/dl (7-17); Calcium 10.3 mg/dl (8.4-10.2); Carbon Dioxide 36 mmol/L (22.0-30.0); Chloride 96 mmol/L (98-107); Creatinine Clearance Estimated 34 mL/min (50-200); Estimated Glomerular Filt Rate 95 ml/min (>60); GFR (African American) 116 ML/MIN (>60); Globulin 4.6 g/dL (1.3-3.2); Glucose 300 mg/dl (74-100); Lipase 40 U/L (23-300); Potassium 3.5 mmoL/L (3.5-5.1); Sodium 143 mmol/L (136-145); Total Protein,Serum 8.9 g/dl (6.3-8.2)
[2020-12-11 20:18] LABS: C-Reactive Protein 23.6 mg/L (0-4)
[2020-12-11 20:31] LABS: Procalcitonin 0.132 ng/mL (0.0-2.0)
[2020-12-11 20:33] LABS: Erythrocyte Sedimentation Rate 6 mm/hr (0-30)
[2020-12-11 20:55] LABS: Microscopic, Urine URINE MICROSCOPIC (MICROSCOPIC)
[2020-12-11 20:57] LABS: Appearance,Urine SL CLOUDY (Clear); Bilirubin,Urine Negative (Negative); Blood, Urine Negative (Negative); Color,Urine YELLOW (Yellow); Glucose,Urine (UA) 3+ (Negative); Ketones,Urine 1+ (Negative); Leukocyte Esterase,Urine Negative (Negative); Nitrate,Urine Negative (Negative); Protein,Urine 3+ (Negative); Urobilinogen,Urine 0.2 EU/dl (0.2)
[2020-12-11 21:00] LABS: Amorphous Sediment,Urine 3+ /lpf
--- NOTE | 2020-12-11 21:02 | HMH.EDARPALP ---
ED Disposition Clinical Impression: DNR (do not resuscitate), UGIB (upper gastrointestinal bleed) Cardiac arrhythmia Qualifiers: Arrhythmia type: atrial flutter Atrial flutter type: unspecified Qualified Code(s): I48.92 - Unspecified atrial flutter Disposition: Admitted as Observation Condition on Discharge: Serious Instructions: DI for Diarrhea and Traveler's Diarrhea -- Adult, DI for Diarrhea and Traveler's Diarrhea -- Child, DI for Nausea -- Adult, DI for Nausea -- Child Referrals: Farooq Garcia MD [Primary Care Provider] - - Critical Care Critical Care Time: No Attestation: On 12/11/20, the high probability of a clinically significant, sudden or life threatening deterioration of the following system(s) required my full and direct attention, intervention and personal management. The time I documented below is in addition to time spent performing reported procedures but includes the following listed in this critical care notation. Medical Decision Making - Medical Records Medical records reviewed: Yes: I reviewed the patient's medical records. - Francois Inquiry Pt receiving controlled substance: No Vital Signs: 12/11/20 19:46 12/11/20 21:24 12/11/20 21:27 Temperature 99.5 F Temperature Source Rectal Pulse Rate 137 H 136 H Pulse Rate [Right Brachial] 155 H Respiratory Rate 18 24 22 Blood Pressure 167/106 H 165/105 H Blood Pressure [Right Arm] 169/115 H Blood Pressure Mean 122 121 Blood Pressure Mean [Right Arm] 133 02 Sat by Pulse Oximetry 97 12/11/20 21:30 12/11/20 21:33 12/11/20 21:36 Temperature Temperature Source Pulse Rate 137 H 133 H Pulse Rate [Right Brachial] Respiratory Rate 26 H Blood Pressure 168/106 H 173/109 H 179/110 H Blood Pressure [Right Arm] Blood Pressure Mean 121 128 127 Blood Pressure Mean [Right Arm] 02 Sat by Pulse Oximetry 94 L 12/11/20 21:39 12/11/20 21:42 12/11/20 21:45 Temperature Temperature Source Pulse Rate 129 H 125 H 128 H Pulse Rate [Right Brachial] Respiratory Rate 24 24 Blood Pressure 179/108 H 175/110 H 177/104 H Blood Pressure [Right Arm] Blood Pressure Mean 130 131 126 Blood Pressure Mean [Right Arm] 02 Sat by Pulse Oximetry 96 97 12/11/20 21:48 12/11/20 21:51 12/11/20 21:54 Temperature Temperature Source Pulse Rate 127 H 124 H 127 H Pulse Rate [Right Brachial] Respiratory Rate 21 28 H 28 H Blood Pressure 184/104 H 187/101 H 185/109 H Blood Pressure [Right Arm] Blood Pressure Mean 132 139 131 Blood Pressure Mean [Right Arm] 02 Sat by Pulse Oximetry 95 96 96 12/11/20 21:57 12/11/20 22:00 12/11/20 22:03 Temperature Temperature Source Pulse Rate 124 H 124 H 120 H Pulse Rate [Right Brachial] Respiratory Rate 27 H 24 22 Blood Pressure 179/108 H 176/107 H 184/107 H Blood Pressure [Right Arm] Blood Pressure Mean 121 127 126 Blood Pressure Mean [Right Arm] 02 Sat by Pulse Oximetry 96 96 12/11/20 22:06 12/11/20 22:09 12/11/20 22:12 Temperature Temperature Source Pulse Rate 125 H 128 H 121 H Pulse Rate [Right Brachial] Respiratory Rate 25 H 25 H 27 H Blood Pressure 185/103 H 181/107 H 183/106 H Blood Pressure [Right Arm] Blood Pressure Mean 125 127 126 Blood Pressure Mean [Right Arm] 02 Sat by Pulse Oximetry 97 95 96 12/11/20 22:15 12/11/20 22:18 12/11/20 22:21 Temperature Temperature Source Pulse Rate 121 H 129 H Pulse Rate [Right Brachial] Respiratory Rate 23 16 Blood Pressure 181/106 H 203/109 H 202/110 H Blood Pressure [Right Arm] Blood Pressure Mean 128 140 140 Blood Pressure Mean [Right Arm] 02 Sat by Pulse Oximetry 97 96 12/11/20 22:24 12/11/20 22:27 12/11/20 22:30 Temperature Temperature Source Pulse Rate 129 H 125 H 131 H Pulse Rate [Right Brachial] Respiratory Rate 25 H 22 20 Blood Pressure 198/110 H 187/104 H 184/105 H Blood Pressure [Right Arm] Blood Pressure Mean 139 131
[2020-12-11 23:50] LABS: Lactic Acid 1.4 mmol/L (0.7-2.1)
[2020-12-12] VITALS (35 sets, daily range): BP systolic 137–209; BP diastolic 79–107; PULSE 103–127; RESP 14–29; TEMP 36.6–37.1; O2SAT 92–100; BMI 25.6
--- NOTE | 2020-12-12 | PC.NURSE ---
per . he is not worry about blood cultures at this time.
--- NOTE | 2020-12-12 | ECG_ITS ---
APPROVED REPORT Exam: Resting ECG HR:129 bpm ECG Measurements Heart Rate 129 AXES QRSd 138 QRS -45 QT 428 T 114 QTc 627 Conclusion Atrial fibrillation with rapid ventricular response Left bundle branch block Abnormal ECG Electronically signed by : Edgar Robert, 12/12/2020 17:21:27
[2020-12-12 00:02] LABS: Troponin I 0.07 ng/ml (0.00-0.034)
--- NOTE | 2020-12-12 00:45 | XR_ITS ---
PROCEDURE: XR CHEST PORTABLE CLINICAL HISTORY: Arrythmia COMPARISON: CT [facility] CT CHEST W/O CONTRAST from 01/24/2015 CR CXR1VP XR chest portable from 07/01/2018 CR CXR1VP XR chest portable from 12/09/2018 CR XR CHEST PORTABLE from 11/11/[address] ABDOMEN PELVIS W CON from 12/11/2020 FINDINGS: The cardiomediastinal silhouette and pulmonary vascularity are within normal limits. The lungs are clear without infiltrates, suspicious nodules, or pleural effusions. Overlying monitor/defibrillator device is present degenerative changes are present in the shoulders with elevation of the humeral heads IMPRESSION: No acute findings. Dictated by: Carrillo Ramos MD 12/12/2020 06:00 Carrillo Ramos MD in [place] 12/12/2020 06:00
[2020-12-12 03:28] LABS: Troponin I 0.09 ng/ml (0.00-0.034)
--- NOTE | 2020-12-12 04:19 | PC.NURSE ---
PT ARRIVED TO FLOOR VIA STRETCHER AT [id number]
--- NOTE | 2020-12-12 04:36 | PC.NURSE ---
cardizem drip decreased to 5 ml/hr, hr 112
[2020-12-12 05:52] LABS: Basophils # 0.1 K/mm3 (0-0.2); Basophils % 0.3 % (0.1-2.0); Eosinophils # 0.3 K/mm3 (0.0-0.4); Eosinophils % 1.2 % (0.1-12.0); Lymphocytes # 1.5 K/mm3 (0.7-4.5); Lymphocytes % 7.3 % (10-50); Mean Corpuscular HGB Conc 32.5 g/dL (31.8-35.4); Mean Corpuscular Hemoglobin 28.5 pg (27.0-31.2); Mean Corpuscular Volume 87.7 fl (81-99); Mean Platelet Volume 10.6 fl (7.4-10.4); Monocytes # 1.3 K/mm3 (0.1-1.0); Monocytes % 6.4 % (1.7-9.3); Neutrophils # 17.2 K/mm3 (1.8-7.8); Neutrophils % 84.8 % (37.0-80.0); Platelet Count 111 K/mm3 (142-424); Red Blood Count 5.02 M/mm3 (4.20-5.40); Red Cell Distribution Width 15.8 % (11.5-17.5)
[2020-12-12 05:53] LABS: Hemoglobin 14.3 g/dL (12.2-16.2); White Blood Count 20.3 K/mm3 (4.8-10.8)
[2020-12-12 05:55] LABS: MANUAL DIFFERENTIAL MANUAL DIFFERENTIAL (MANUAL DIFF)
[2020-12-12 05:56] LABS: POC Glucose,Bedside 208 (70-110)
[2020-12-12 06:01] LABS: Chloride 111 mmol/L (98-107)
[2020-12-12 06:02] LABS: Potassium 3.4 mmoL/L (3.5-5.1); Sodium 144 mmol/L (136-145)
[2020-12-12 06:04] LABS: Blood Urea Nitrogen 19 mg/dl (7-17); Creatinine Clearance Estimated 40 mL/min (50-200); Estimated Glomerular Filt Rate 118 ml/min (>60); GFR (African American) 143 ML/MIN (>60)
[2020-12-12 06:05] LABS: Anion Gap 9.4 mEq/L (5-15); Carbon Dioxide 27 mmol/L (22.0-30.0); Glucose 240 mg/dl (74-100)
--- NOTE | 2020-12-12 06:24 | PC.NURSE ---
0600 cardizem drip increased to 10 ml/hr, heart rate sustaining 1teens and slowly increasing
--- NOTE | 2020-12-12 07:46 | P.CONPHA_ITS ---
[facility] Pharmacy VTE Monitoring - Patient Demographics Admission date: 12/11/20 Report Date: 12/12/20 Time: 07:46 Allergies/Adverse Reactions: Patient Allergies egg [From EGGS (FOOD/DRUG)] Allergy (Intermediate, Verified 12/12/20 04:41) I-RASH peanut [From PEANUTS (FOOD/DRUG)] Allergy (Intermediate, Verified 12/12/20 04:41) UNK Penicillins [PENICILLINS] Allergy (Intermediate, Verified 12/12/20 04:41) Unknown allergy reaction Height: 1.52 m Weight: 59.165 kg Patient Problems: Current Active Problems UGIB (upper gastrointestinal bleed) (Acute) Cardiac arrhythmia (Acute) DNR (do not resuscitate) (Chronic) - VTE Risk Labs: VTE Related Lab Results Hgb 14.3 g/dL (12.2-16.2) D 12/12/20 05:37 Hct 44.0 % (37.0-47.0) 12/12/20 05:37 Plt Count 111 K/mm3 (142-424) L D 12/12/20 05:37 BUN 27 mg/dl (7-17) H 12/11/20 19:30 Creatinine 0.60 mg/dl (0.52-1.04) 12/11/20 19:30 Estimated Creat Clear 34 mL/min (50-200) 12/11/20 19:30 VTE Score: 7 VTE Risk Level: Moderate Risk - Prophylaxis VTE Prophylaxis Ordered?: Yes Types of VTE Prophylaxis: TEDS Knee High Location of Applied Device: Bilateral Lower Extremeties
--- NOTE | 2020-12-12 07:50 | PC.NURSE ---
HR consistently above 110, BP 121/88. Cardizem gtt increased to 15 mls/hr.
--- NOTE | 2020-12-12 08:01 | PC.NURSE ---
0730 - HR consistently above 100, BP 171/88. Cardizem gtt increased to 15 mls/hr.
--- NOTE | 2020-12-12 08:05 | HMH.PHAINT ---
MEDICATION RECONCILIATION COMPLETED ON PATIENT USING MAR FROM [facility]. -SHERIE ISABEL, MAKID
[2020-12-12 08:24] LABS: Calcium 8.3 mg/dl (8.4-10.2)
--- NOTE | 2020-12-12 08:33 | ECG_ITS ---
APPROVED REPORT Exam: Resting ECG HR:113 bpm ECG Measurements Heart Rate 113 AXES VA 130 P 2 QRSd 140 QRS -23 QT 392 T 162 QTc 537 Conclusion Sinus tachycardia with premature supraventricular complexes Left bundle branch block Abnormal ECG Electronically signed by : Edgar Robert, 12/12/2020 17:20:48
--- NOTE | 2020-12-12 08:51 | PC.NURSE ---
No residual upon check. GTube flushed w/ 30 cc of water. Pt tolerated well.
[2020-12-12 08:56] LABS: Lymphocytes % 9 % (10-50); Monocytes % 7 % (2-9); Neutrophils % 84 % (42-76); Total Cells Counted 100
[2020-12-12 08:57] LABS: Platelet Estimate Slight Decrease
[2020-12-12 08:59] LABS: RBC Morphology Normal
--- NOTE | 2020-12-12 09:45 | SW/DCPLANNER ---
This patient currently resides at [facility]. I have spoke with Danelle from [facility] and she has stated that patient is [facility] level of care. This patient will not require another COVID swab due to being tested at admission (within 48 hours).
--- NOTE | 2020-12-12 09:48 | HMH.HPDC ---
General - General Admission date:: 12/12/20 Discharge date: 12/12/20 *Admission Date: 12/11/20 *Chief complaint: htn,vomiting *History of present illness: 85 yr old female presented to ED was sent from [facility] for eval of blood in stool and emesis and elevated bp. while in ed pt heart rate was 140-160 aflutter. pt was admitted overnight on cardizem and pt converted this am ekg shows NSR with pvc, cardiology consulted and recommends Bisoprolol 10 mg with other cardiac meds, norvac and clonidine. [facility] History I have reviewed the patient's past medical history: Yes Medical History: Reports:: Anxiety, Congestive Heart Failure, Coronary Artery Disease, Dementia, Depression, Diabetes Mellitus Type 1, Diabetes Mellitus Type 2, Hyperlipidemia, Hypertension, Peripheral Vascular Disease, Transient Ischemic Attacks (TIA), Urinary Tract Infection Denies:: Atrial Fibrillation, Cancer, Internal Pacemaker, MRSA *Have you ever received a pneumonia vaccine?: Yes *Have you received a flu vaccine this season?: Yes Other Medical History: Reports: Anemia, Glaucoma Other Surgeries: No: Pacemaker Amputation: No Fractures: No - *Social History Smoking Status: Unknown if ever smoked Alcohol Intake: never *Occupational Status:: retired, disabled Housing: care home Household Members: other *Travel in the last 8 weeks: None - Psychiatric History Pschychiatric History:: Reports:: Anxiety, Depression Family Hx:: Unable to obtain Review of Systems - Review of Systems Review of systems:: unable to obtain, pertinent systems reviewed and negative unless documented below - Constitutional Denies fever(s) - Eyes Denies blurry vision - ENT Reports other - *Cardiovascular Denies chest pain at rest - *Respiratory Denies chest congestion - *Gastrointestinal Reports coffee ground vomit, Reports incontinent of stools, Reports nausea, Reports vomiting - *Genitourinary Reports urinary incontinence - *Musculoskeletal Reports other - Integumentary/Breasts Denies rash - *Neurologic Reports other, Denies abnormal movements, Denies confusion - Psychiatric Reports other, Denies behavioral changes, Denies confusion - Endocrine Denies cold intolerance - Hematologic/Lymphatic Denies easy bruising - Allergic/Immunologic Denies itchy eyes Exam Vital signs and Labs for Last 24 Hours: Temp Pulse Resp BP Pulse Ox 98.1 F 112 H 16 175/90 H 100 12/12/20 07:00 12/12/20 09:00 12/12/20 09:00 12/12/20 09:00 12/12/20 09:00 Laboratory Results - last 24 hr 12/11/20 19:30: WBC 14.0 H, RBC 5.90 H, Hgb 16.8 H, Hct 52.1 H, MCV 88.3, MCH 28.4, MCHC 32.2, RDW 15.6, Plt Count 261, MPV 9.3, Neut % (Auto) 83.1 H, Lymph % (Auto) 9.7 L, Early % (Auto) 6.5, Eos % (Auto) 0.2, Baso % (Auto) 0.4, Neut # (Auto) 11.7 H, Lymph # (Auto) 1.4, Early # (Auto) 0.9, Eos # (Auto) 0.0, Baso # (Auto) 0.1, ESR 6 12/11/20 19:30: Sodium 143, Potassium 3.5, Chloride 96 L, Carbon Dioxide 36 H, Anion Gap 14.5, BUN 27 H, Creatinine 0.60, Estimated Creat Clear 34, Estimated GFR 95, Est GFR ( Amer) 116, Glucose 300 H, Calcium 10.3 H, Total Bilirubin 0.8, AST 46 H, ALT 27, Alkaline Phosphatase 126, C-Reactive Protein 23.6 H, Total Protein 8.9 H D, Albumin 4.3, Globulin 4.6 H, Albumin/Globulin Ratio 0.9 L, Amylase 152 H, Lipase 40, Procalcitonin 0.132 12/11/20 19:30: Troponin I 0.07 H 12/11/20 19:50: Stool Occult Blood Positive A 12/11/20 19:59: POC Glucose 261 H 12/11/20 20:50: Urine Color Yellow, Urine Appearance Sl cloudy, Urine pH 8.0, Ur Specific [place] 1.020, Urine Protein 3+, Urine Glucose (UA) 3+, Urine Ketones 1+, Urine Blood Negative, Urine Nitrate Negative, Urine Bilirubin Negative, Urine Urobilinogen 0.2, Ur Leukocyte Esterase Negative, Urine WBC 3-5, Ur Squamous Epith Cells 3-5, Amorphous Sediment 3+ 12/11/20 23:15: Lactate 1.4 12/12/20 02:50: Troponin I 0.09 H 12/12/20 05:37: WBC 20.3 H* D, RBC 5.02, Hgb 14.3 D, Hct 44.0, MCV 87.7, MCH 28.5, MCHC
--- NOTE | 2020-12-12 10:43 | HMH.CNCARD ---
History of Present Illness Consult date: 12/12/20 Requesting physician: Farooq Garcia Consult reason: atrial fibrillation Chief complaint: Atrial fib History of present illness: 85-year-old female admitted to [facility] with atrial fibrillation/atrial flutter. Heart rate was in the 140s to 160s. ED physician did start Cardizem drip and patient did convert over to sinus rhythm with left bundle branch block. Patient is from a local nursing facility. Patient is nonverbal. Patient will groan with painful stimuli. Patient does have history of dementia and has had history of TIAs in the past. Patient is a known diabetic. Patient does have history of congestive heart failure and coronary artery disease. Unable to obtain any history from from patient due to her mental status and she is nonverbal. Patient is hypertensive at this time. Patient does have history of hypertension. This is managed by PCP. monitor technician reveals sinus rhythm with left bundle branch block with a heart rate of 108 bpm. Cardizem drip was stopped. Patient is currently on diltiazem 60 mg 3 times daily along with her other medications per PCP. Recommend starting bisoprolol 10 mg for better heart rate and blood pressure control. Patient does have a DNR status. Discussed plan of care with Dr. Adams and PCP. Recommend to start bisoprolol 10 mg p.o. to control heart rate and blood pressure. From a cardiac standpoint patient may be transferred back to facility. Recommend patient to follow-up with cardiology in 1 to 2 weeks. Thank you for allowing cardiology to participate in the care of this patient. [facility] History Medical History: Reports:: Anxiety, Congestive Heart Failure, Coronary Artery Disease, Dementia, Depression, Diabetes Mellitus Type 1, Diabetes Mellitus Type 2, Hyperlipidemia, Hypertension, Peripheral Vascular Disease, Transient Ischemic Attacks (TIA), Urinary Tract Infection Denies:: Atrial Fibrillation, Cancer, Internal Pacemaker, MRSA *Have you ever received a pneumonia vaccine?: Yes *Have you received a flu vaccine this season?: Yes Other Medical History: Reports: Anemia, Glaucoma Other Surgeries: No: Pacemaker Amputation: No Fractures: No - *Social History Smoking Status: Unknown if ever smoked Alcohol Intake: never *Occupational Status:: retired, disabled Housing: assisted Household Members: other *Travel in the last 8 weeks: None - Psychiatric History Pschychiatric History:: Reports:: Anxiety, Depression Family Hx:: Unable to obtain Meds Home Medications Medication Instructions Recorded Confirmed Type acetaminophen 500 mg tablet 1,000 mg G-TUBE Q6HP PRN 11/15/17 12/12/20 History amlodipine 5 mg tablet 5 mg G-TUBE DAILY 11/15/17 12/12/20 History isosorbide dinitrate 30 mg tablet 30 mg G-TUBE BID tab 11/15/17 12/12/20 History Insulin Glargine,Hum.rec.anlog 10 unit SQ DAILY 12/09/18 12/12/20 History [Lantus Solostar 100 Units/mL 3mL flexpen] cloNIDine [Clonidine] 0.2 mg TD FR 12/09/18 12/12/20 History Lactulose [Enulose] 10 gm G-TUBE DAILYP PRN 04/07/20 12/12/20 History hydrOXYzine pamoate [Vistaril 25mg 25 mg G-TUBE BIDP PRN 04/07/20 12/12/20 History capsule] Metoclopramide HCl [Reglan 5mg 5 mg G-TUBE QID 11/12/20 12/12/20 History Tablet] ondansetron HCL [Ondansetron 4mg 4 mg G-TUBE Q8HP PRN 11/12/20 12/12/20 History tab*] fentanyl 25 mcg/hr transdermal 25 mcg TRANSDERMA Q72H #10 each 12/02/20 12/12/20 Rx patch Loratadine [Claritin] 10 mg G-TUBE DAILY 12/12/20 12/12/20 History Mag Carb/Aluminum Hydrox/Algin 30 ml G-TUBE TIDP PRN 12/12/20 12/12/20 History [Gaviscon Extra Strength Liquid] Pantoprazole Sodium [Protonix 40mg 40 mg PO DAILY 30 Days #30 packet 12/12/20 Rx (granule) packet] Promethazine HCl [Phenergan 25mg 25 mg RC Q6HP PRN 12/12/20 12/12/20 History Suppository] bisoproloL fumarate [Bisoprolol 10 mg PO DAILY 30 Days #30 tab 12/12/20 Rx 10mg Tablet] Allergies
[2020-12-12 11:28] LABS: POC Glucose,Bedside 134 (70-110)
--- NOTE | 2020-12-12 12:04 | PC.NURSE ---
Called report to Margoth @ [facility] at 1200
== END 2020-12-12 12:50 ==
LOC: ER 12-12 03:39 → 2ND 12-12 03:52
PROVIDERS: Admitting Provider Emergency Medicine; Emergency Provider Emergency Medicine; PCP Emergency Medicine; Visit Provider Emergency Medicine
DX: I44.7 Left bundle-branch block, unspecified (principal); I48.92 Unspecified atrial flutter; I50.9 Heart failure, unspecified; I11.0 Hypertensive heart disease with heart failure; E11.9 Type 2 diabetes mellitus without complications; Z79.4 Long term (current) use of insulin; E78.5 Hyperlipidemia, unspecified; F03.90 Unspecified dementia, unspecified severity, without behavioral disturbance, psychotic disturbance, mood disturbance, and anxiety; Z88.0 Allergy status to penicillin; Z79.899 Other long term (current) drug therapy; Z91.012 Allergy to eggs; Z91.010 Allergy to peanuts
CPT/HCPCS: G0379; 36415; 71045; 74177; 80048; 80053; 81001; 82150; 82272; 82962; 83605; 83690; 84145; 84484; 85007; 85025; 85651; 86140; 87040; 93005; 96365; 96366; 96367; 96375; 96376; 99284; G0328; G0378; J2405; Q9967; U0003

== ENCOUNTER 2020-12-30 11:50 | Day surgery (SDC) | payer MEDICARE, MEDICAID, SELFPAY ==
[2020-12-20 09:51] VITALS: BMI 24.7
[2020-12-30] VITALS (7 sets, daily range): BP systolic 137–175; BP diastolic 89–112; PULSE 79–100; RESP 16–20; TEMP 36.2–36.5; O2SAT 94–100
[2020-12-30 12:57] LABS: Coronavirus 19 IgG Antibody Positive (Negative); Coronavirus 19 IgM Antibody Negative (Negative)
--- NOTE | 2020-12-30 13:01 | P.PN_ITS ---
[facility] Anesthesia Checklist - Structural Data Admitted From: [place] [facility] Planned Operative Procedure/s: egd Consent for Planned Operative Procedure(s) Verified: Yes - Airway Assessment C-Spine Mobility Assessed: Yes TMJ Mobility Assessed: Yes Dentition: Poor Dentition - Neurological Assessment Level of Consciousness: Awake, Alert, Appropriate - Anesthesia Plan Anesthesia Plan: Not verified due to Patient Condition ASA Class: III Anesthesia Type: MAC [facility] History I have reviewed the patient's past medical history: Yes Medical History: Reports:: Anxiety, Congestive Heart Failure, Coronary Artery Disease, Dementia, Depression, Diabetes Mellitus Type 1, Diabetes Mellitus Type 2, Hyperlipidemia, Hypertension, Peripheral Vascular Disease, Transient Ischemic Attacks (TIA), Urinary Tract Infection Denies:: Atrial Fibrillation, Cancer, Internal Pacemaker, MRSA *Have you ever received a pneumonia vaccine?: Yes *Have you received a flu vaccine this season?: Yes Other Medical History: Reports: Anemia, Glaucoma Anesthesia experience/problems:: none Other Surgeries: No: Pacemaker Amputation: No Fractures: No - *Social History Last grade of school completed: High school graduate Smoking Status: Unknown if ever smoked Alcohol Intake: never Substance Use Type: unknown *Occupational Status:: disabled Housing: prison Household Members: other *Travel in the last 8 weeks: None - Psychiatric History Pschychiatric History:: Reports:: Anxiety, Depression Family Hx:: Unable to obtain
--- NOTE | 2020-12-30 13:11 | P.PCN_ITS ---
[facility] Procedure Note Procedure Note:: Upper Endoscopy Procedure Report: Esophagogastroduodenoscopy with cold biopsies and TTS balloon dilation Endoscopost: Shorty Collazo II, MD Referring Physician: Farooq Garcia MD Date of Procedure: December 30, 2020 Equipment: Olympus GIF 190 standard upper endoscope Sedation: MAC sedation Indications: Mrs. Pappas is an 85-year-old resident of the custodial([facility]) who recently presented to the emergency department with hematemesis on December 11, 2020. Her lab work did show no evidence of anemia and her hemoglobin 16.8 and hematocrit 52.1 were increased possibly secondary to volume depletion. She did have a CT scan of the abdomen and pelvis that did show patchy atelectasis in the left lung base but no other abnormalities. There was a prior gastrostomy tube placed. Procedure: Prior to the procedure, a history and physical exam was performed, and patient's medications and allergies were reviewed. The risks, benefits and alternatives of the sedation and procedure were discussed with the patient. All questions were answered and informed consent was obtained. The patient was brought to the procedure room. Patient identification and proposed procedure were verified by the physician and the nurse. The patient was placed in a left lateral decubitus position and the scope was passed under direct vision. Throughout the procedure, the patient's blood pressure, pulse, and oxygen saturations were monitored continuously. The upper GI endoscopy was accomplished without difficulty. The patient tolerated the procedure well. Findings: The scope was passed directly into the upper esophagus and advanced to the third portion of the duodenum. The post bulbar duodenum and duodenal bulb were normal with normal mucosa and conniventes. The scope was withdrawn through a normal duodenal bulb and pylorus into the stomach. There was some very mild reactive gastropathy. There was a PEG tube along the anterior wall and body of the stomach which was in place and normal appearance. The remainder of the antrum, body and fundus of the stomach were grossly normal. Upon retroflexion th ere was a small 2 cm hiatal hernia. 2 biopsies were taken in the antrum and along the lesser curvature for histology to rule out gastritis and/or H pylori. The scope was then withdrawn into the esophagus. There was a distal Schatzki's ring. Biopsies were taken at the GE junction. The Schatzki's ring was dilated from the original diameter of 9 or 10 mm up to 18 mm with a TTS hydrostatic balloon. The remainder of the esophageal mucosa was normal. Impression: 1. Schatzki's ring dilated to 18 mm 2. Small hiatal hernia (2 cm) 3. Mild reactive gastropathy 4. PEG tube in place Plan: There was nothing endoscopically that would result in significant gastrointestinal hemorrhage. She may have had a Ernestina-Ring tear. I will follow-up the biopsies. She did not have any significant decline in her hemoglobin/hematocrit.
== END 2020-12-30 14:15 | disposition home or self-care (01) ==
LOC: OUTP 11:55
PROVIDERS: PCP Emergency Medicine; Visit Provider Internal Medicine Gastroenterology
PROC: 0DJ08ZZ Inspection of Upper Intestinal Tract, Via Natural or Artificial Opening Endoscopic (ICD-10-PCS; CPT 43235; principal; 2020-12-30 13:00)
DX: R91.8 Other nonspecific abnormal finding of lung field (principal); K22.2 Esophageal obstruction; K44.9 Diaphragmatic hernia without obstruction or gangrene; K31.9 Disease of stomach and duodenum, unspecified; Z93.1 Gastrostomy status; I11.0 Hypertensive heart disease with heart failure; I50.9 Heart failure, unspecified; I25.10 Atherosclerotic heart disease of native coronary artery without angina pectoris; F32.9 Major depressive disorder, single episode, unspecified; E11.9 Type 2 diabetes mellitus without complications; E78.5 Hyperlipidemia, unspecified; I73.9 Peripheral vascular disease, unspecified
CPT/HCPCS: 43239; 43249; 86328; 88305; C1726

== ENCOUNTER 2021-01-23 10:24 | Emergency (ER) | payer MEDICARE, MEDICAID, SELFPAY ==
[2021-01-23 10:24] VITALS: BP 131/65; PULSE 76; RESP 17; TEMP 36.7; O2SAT 97; BMI 19.5
--- NOTE | 2021-01-23 10:40 | PC.NURSE ---
MARGARET RIVERA notified per Dot Yang RN pt is in ED r/t her gtube being dislodged
[2021-01-23 12:15] VITALS: BP 162/77; PULSE 65; RESP 18; O2SAT 99
[2021-01-23 12:19] VITALS: BP 163/71; PULSE 87; RESP 18; O2SAT 98
--- NOTE | 2021-01-23 12:50 | XR_ITS ---
PROCEDURE: XR KUB CLINICAL INDICATION: G-TUBE PLACEMENT COMPARISON: CT CT ABDOMEN PELVIS W CON from 12/11/2020 FINDINGS: Single AP view of the left abdomen shows contrast injected into a G-tube which is in region the body of stomach. No abnormal contrast extravasation. IMPRESSION: G-tube in good position. Dictated by: Carrillo Ramos MD 01/23/2021 13:47 Carrillo Ramos MD in [facility] 01/23/2021 13:47
--- NOTE | 2021-01-23 13:57 | HMH.EDGENADL ---
ED Disposition Clinical Impression: Encounter for care related to feeding tube Disposition: Home, Self-Care Condition on Discharge: Good Instructions: DI for Laceration Repair, DI for Feeding Tube Exchange Additional Instructions: We are glad to let you know that we have successfully replaced the feeding tube please follow-up as needed Referrals: Farooq Garcia MD [Primary Care Provider] - Time of Disposition: 14:06 - Critical Care Critical Care Time: No Attestation: On 01/23/21, the high probability of a clinically significant, sudden or life threatening deterioration of the following system(s) required my full and direct attention, intervention and personal management. The time I documented below is in addition to time spent performing reported procedures but includes the following listed in this critical care notation. Medical Decision Making - Medical Records Medical records reviewed: Yes: I reviewed the patient's medical records. MR Comment: 85-year-old -[place] female from the snf with a complaint that her G-tube came out and needs to be replaced. G-tube was successfully replaced. X-ray showed the G-tube to be successfully replaced and is in good position - Francois Inquiry Pt receiving controlled substance: No Vital Signs: 01/23/21 10:24 01/23/21 12:15 01/23/21 12:19 Temperature 98.1 F Temperature Source Skin Pulse Rate 65 87 Pulse Rate [Right] 76 Respiratory Rate 17 18 18 Blood Pressure 162/77 H 163/71 H Blood Pressure [Right Arm] 131/65 Blood Pressure Mean [Right Arm] 87 02 Sat by Pulse Oximetry 97 99 98 Oxygen Delivery Method Room Air Orders (Tests/Meds): ED MEDICATIONS Discontinued Medications Generic Name Dose Route Start Last Admin Trade Name Freq PRN Reason Stop Dose Admin Diatrizoate Meglum/Diatrizoate Sod 30 ml 01/23/21 12:51 01/23/21 12:50 Diatrizoate Rosanna 66% & Diatrizoate Na 10% 30ml Udc FEED TUBE 01/23/21 12:52 30 ml ONCE ONE Administration Lorazepam 1 mg 01/23/21 12:08 01/23/21 12:13 Lorazepam 2mg/Ml Vial IM 01/23/21 12:09 1 mg ONCE ONE Administration General Adult HPI - General Chief complaint: Wound/Laceration Stated complaint: gtube dislodged Time Seen by Provider: 01/23/21 12:00 Mode of Arrival: EMS Source of Information: EMS Limitations: No Limitations Description of Symptoms (Recalled from ER Triage Doc. by RN): EMS REPORTS PT WAS SENT FROM [facility] FOR GTUBE REPLACEMENT. EMS REPORTS THE PT PULLED HER TUBE OUT. UPON ASSESSMENT IN ED TRIAGE, THE SITE APPEARS NORMAL IN APPEARANCE. MALAGA COVERED SITE OF GTUBE DISPLACEMENT. - History of Present Illness HPI narrative: 85-year-old -[place] female from the snf with a complaint that her G-tube came out and needs to be replaced Onset (ago): hour(s) Severity: mild Severity scale (1-10): 2 Relieving factors: none Exacerbating factors: none Associated symptoms: denies other symptoms Treatments prior to arrival: none - Related Data Home Medications Medication Instructions Recorded Confirmed acetaminophen 500 mg tablet 1,000 mg G-TUBE Q6HP PRN 11/15/17 12/30/20 amlodipine 5 mg tablet 5 mg G-TUBE DAILY 11/15/17 12/30/20 isosorbide dinitrate 30 mg tablet 30 mg G-TUBE BID tab 11/15/17 12/30/20 Insulin Glargine,Hum.rec.anlog 10 unit SQ DAILY 12/09/18 12/30/20 [Lantus Solostar 100 Units/mL 3mL flexpen] cloNIDine [Clonidine] 0.2 mg TD FR 12/09/18 12/30/20 Lactulose [Enulose] 10 gm G-TUBE DAILYP PRN 04/07/20 12/30/20 hydrOXYzine pamoate [Vistaril 25mg 25 mg G-TUBE BIDP PRN 04/07/20 12/30/20 capsule] Metoclopramide HCl [Reglan 5mg 5 mg G-TUBE QID 11/12/20 12/30/20 Tablet] ondansetron HCL [Ondansetron 4mg 4 mg G-TUBE Q8HP PRN 11/12/20 12/30/20 tab*] Loratadine [Claritin] 10 mg G-TUBE DAILY 12/12/20 12/30/20 Mag Carb/Aluminum Hydrox/Algin 30 ml G-TUBE TIDP PRN 12/12/20 12/30/20 [Gaviscon Extra Strength
[2021-01-23 14:31] VITALS: BP 155/82; PULSE 65; RESP 18; TEMP 36.7; O2SAT 96
--- NOTE | 2021-01-23 14:32 | PC.NURSE ---
report called to ana lilia morgan [facility]
== END 2021-01-23 14:31 | disposition home or self-care (01) ==
PROVIDERS: Emergency Provider Emergency Medicine; PCP Emergency Medicine
DX: K94.23 Gastrostomy malfunction (principal); I25.10 Atherosclerotic heart disease of native coronary artery without angina pectoris; I50.9 Heart failure, unspecified; F03.90 Unspecified dementia, unspecified severity, without behavioral disturbance, psychotic disturbance, mood disturbance, and anxiety; F41.9 Anxiety disorder, unspecified; E11.9 Type 2 diabetes mellitus without complications; I10 Essential (primary) hypertension; Z79.899 Other long term (current) drug therapy
CPT/HCPCS: 74018; 99282

== ENCOUNTER 2021-08-04 09:38 | Emergency (ER) | payer MEDICARE, MEDICAID, SELFPAY ==
[2021-08-04] VITALS (7 sets, daily range): BP systolic 138–203; BP diastolic 97–110; PULSE 68–80; RESP 18–20; TEMP 36.6; O2SAT 87–97; BMI 21.9
--- NOTE | 2021-08-04 10:02 | HMH.EDGENADL ---
ED Disposition Clinical Impression: Encounter for care related to feeding tube Disposition: Home, Self-Care Condition on Discharge: Good Referrals: Farooq Garcia MD [Primary Care Provider] - - Critical Care Critical Care Time: No Attestation: On 08/04/21, the high probability of a clinically significant, sudden or life threatening deterioration of the following system(s) required my full and direct attention, intervention and personal management. The time I documented below is in addition to time spent performing reported procedures but includes the following listed in this critical care notation. Medical Decision Making - Medical Records Medical records reviewed: Yes: I reviewed the patient's medical records. - Francois Inquiry Pt receiving controlled substance: No Vital Signs: 08/04/21 09:38 Temperature 96 F L Temperature Source Oral Pulse Rate [Right Radial] 74 Respiratory Rate 18 Blood Pressure [Right Arm] 138/97 H Blood Pressure Mean [Right Arm] 110 Blood Pressure Source [Right Arm] Automatic Cuff Blood Pressure Position [Right Arm] Sitting 02 Sat by Pulse Oximetry 96 Oxygen Delivery Method Room Air Orders (Tests/Meds): ED MEDICATIONS Discontinued Medications Generic Name Dose Route Start Last Admin Trade Name Freq PRN Reason Stop Dose Admin Diatrizoate Meglum/Diatrizoate Sod 30 ml 08/04/21 10:57 08/04/21 11:17 Diatrizoate Rosanna 66% & Diatrizoate Na 10% 30ml Udc PO 08/04/21 10:58 30 ml ONCE ONE Administration - Radiology Data #1 Image(s): Abdomen Image Reviewed: Yes I reviewed the patient's radiology results, Yes I reviewed the patient's radiology image, Yes I have reviewed radiologist's interpretation IMPRESSION: Satisfactory PEG placement with no abnormal extravasation of contrast - Reevaluation(s) Time: 12:00 Reevaluation #1: Patient has proper placement of the PEG tube confirmed by radiology. Patient be sent back to nursing facility. Needs follow-up with PCP. Nursing was given strict return precautions. Verbalized understanding. Medical Decision Narrative: 86-year-old female presenting after removal of G-tube. Patient will require replacement. No other injuries were sustained. General Adult HPI - General Chief complaint: Recheck/Abnormal Lab/Rx Stated complaint: g tube out Time Seen by Provider: 08/04/21 09:45 Mode of Arrival: EMS Limitations: hx of dementia, pt is non-verbal Description of Symptoms (Recalled from ER Triage Doc. by RN): Pt sent to ER r/t gtube was round to be dislodged. Unknown how long gtube has been out. - History of Present Illness HPI narrative: 86-year-old female presented with longstanding history of dementia nonverbal. She is had a PEG tube in place for quite some time. Apparently she removed it sometime this morning. Patient seen frequently for this. She does get agitated and removed. There is no evidence of other injuries. Patient unable provide further history given her clinical status. - Related Data Home Medications Medication Instructions Recorded Confirmed acetaminophen 500 mg tablet 1,000 mg G-TUBE Q6HP PRN 11/15/17 05/16/21 amlodipine 5 mg tablet 5 mg G-TUBE DAILY 11/15/17 05/16/21 isosorbide dinitrate 30 mg tablet 30 mg G-TUBE BID tab 11/15/17 05/16/21 Insulin Glargine,Hum.rec.anlog 10 unit SQ DAILY 12/09/18 05/16/21 [Lantus Solostar 100 Units/mL 3mL flexpen] cloNIDine [Clonidine] 0.2 mg TD FR 12/09/18 05/16/21 Lactulose [Enulose] 10 gm G-TUBE DAILYP PRN 04/07/20 05/16/21 hydrOXYzine pamoate [Vistaril 25mg 25 mg G-TUBE BIDP PRN 04/07/20 05/16/21 capsule] Metoclopramide HCl [Reglan 5mg 5 mg G-TUBE QID 11/12/20 05/16/21 Tablet] ondansetron HCL [Ondansetron 4mg 4 mg G-TUBE Q8HP PRN 11/12/20 05/16/21 tab*] Loratadine [Claritin] 10 mg G-TUBE DAILY 12/12/20 05/16/21 Mag Carb/Aluminum Hydrox/Algin 30 ml G-TUBE TIDP PRN 12/12/20 05/16/21 [Gaviscon Extra Strength Liquid] Prometha
--- NOTE | 2021-08-04 10:52 | XR_ITS ---
PROCEDURE: XR KUB CLINICAL INDICATION: G tube COMPARISON: CT CT ABDOMEN PELVIS W CON from 12/11/2020 FINDINGS: 30 mL of Gastrografin was injected through the PEG tube. There is prompt filling of the body and antrum of the stomach and duodenal bulb and descending duodenum. There is no abnormal extravasation of contrast outside of the stomach. IMPRESSION: Satisfactory PEG placement with no abnormal extravasation of contrast Dictated by: Dr. Julio Mariscal MD 08/04/2021 11:26 Dr. Julio Mariscal MD in [facility] 08/04/2021 11:26
--- NOTE | 2021-08-04 12:43 | PC.NURSE ---
report called to Clotilde at [facility] at this time report given to [facility] at this time as well.
== END 2021-08-04 12:46 | disposition home or self-care (01) ==
PROVIDERS: Emergency Provider Emergency Medicine; PCP Emergency Medicine
DX: Z43.1 Encounter for attention to gastrostomy (principal); I50.9 Heart failure, unspecified; I10 Essential (primary) hypertension; F41.8 Other specified anxiety disorders; I25.10 Atherosclerotic heart disease of native coronary artery without angina pectoris; E11.9 Type 2 diabetes mellitus without complications; F03.90 Unspecified dementia, unspecified severity, without behavioral disturbance, psychotic disturbance, mood disturbance, and anxiety
CPT/HCPCS: 74018; 99282

== ENCOUNTER 2021-09-01 09:47 | Emergency (ER) | payer MEDICARE, MEDICAID, SELFPAY ==
[2021-09-01 09:48] VITALS: BP 165/78; PULSE 82; RESP 16; TEMP 36.7; O2SAT 94; BMI 24.2
--- NOTE | 2021-09-01 09:50 | HMH.EDGENADL ---
ED Disposition Clinical Impression: Feeding tube dysfunction Qualifiers: Encounter type: initial encounter Qualified Code(s): T85.598A - Other mechanical complication of other gastrointestinal prosthetic devices, implants and grafts, initial encounter Disposition: Home, Self-Care Condition on Discharge: Fair - Critical Care Critical Care Time: No Attestation: On , the high probability of a clinically significant, sudden or life threatening deterioration of the following system(s) required my full and direct attention, intervention and personal management. The time I documented below is in addition to time spent performing reported procedures but includes the following listed in this critical care notation. Medical Decision Making - Francois Inquiry Pt receiving controlled substance: No Vital Signs: 09/01/21 09:48 Temperature 98.1 F Temperature Source Oral Pulse Rate [Left Radial] 82 Respiratory Rate 16 Blood Pressure [Left Arm] 165/78 H Blood Pressure Mean [Left Arm] 107 02 Sat by Pulse Oximetry 94 L Oxygen Delivery Method Room Air Orders (Tests/Meds): ED MEDICATIONS Discontinued Medications Generic Name Dose Route Start Last Admin Trade Name Freq PRN Reason Stop Dose Admin Diatrizoate Meglum/Diatrizoate Sod 10 ml 09/01/21 11:11 09/01/21 11:11 Diatrizoate Meglumine(Gastrografin) 66%-10% 120ml PO 09/01/21 11:12 10 ml ONCE ONE Administration - Radiology Data #1 Image(s): Abdomen (Confirmed placement of G-tube) Image Reviewed: Yes I reviewed the patient's radiology results, Yes I discussed the image results w/the radiologist Medical Decision Narrative: Patient is an 86-year-old female presenting with a chief complaint of G-tube displacement. Differential diagnosis includes, but is not limited to, G-tube displacement, site closure, infection, other. Initial evaluation, patient is hemodynamically stable and nontoxic-appearing. She is unable to provide history due to dementia. G-tube was replaced without difficulty in the emergency department and confirmed with Gastrografin KUB. Patient was discharged back to custodial in a stable condition. General Adult HPI - General Stated complaint: pulled feeding tube Time Seen by Provider: 09/01/21 09:50 - History of Present Illness HPI narrative: Char is a 86yo F with past medical history significant for dementia is presenting from her custodial facility for chief complaint of feeding tube displacement. Per report, patient pulled out her feeding tube approximately 15 to 20 minutes prior to arrival. Unable to obtain additional history as patient has dementia at baseline and is nonverbal. - Related Data Home Medications Medication Instructions Recorded Confirmed acetaminophen 500 mg tablet 1,000 mg G-TUBE Q6HP PRN 11/15/17 05/16/21 amlodipine 5 mg tablet 5 mg G-TUBE DAILY 11/15/17 05/16/21 isosorbide dinitrate 30 mg tablet 30 mg G-TUBE BID tab 11/15/17 05/16/21 Insulin Glargine,Hum.rec.anlog 10 unit SQ DAILY 12/09/18 05/16/21 [Lantus Solostar 100 Units/mL 3mL flexpen] cloNIDine [Clonidine] 0.2 mg TD FR 12/09/18 05/16/21 Lactulose [Enulose] 10 gm G-TUBE DAILYP PRN 04/07/20 05/16/21 hydrOXYzine pamoate [Vistaril 25mg 25 mg G-TUBE BIDP PRN 04/07/20 05/16/21 capsule] Metoclopramide HCl [Reglan 5mg 5 mg G-TUBE QID 11/12/20 05/16/21 Tablet] ondansetron HCL [Ondansetron 4mg 4 mg G-TUBE Q8HP PRN 11/12/20 05/16/21 tab*] Loratadine [Claritin] 10 mg G-TUBE DAILY 12/12/20 05/16/21 Mag Carb/Aluminum Hydrox/Algin 30 ml G-TUBE TIDP PRN 12/12/20 05/16/21 [Gaviscon Extra Strength Liquid] Promethazine HCl [Phenergan 25mg 25 mg RC Q6HP PRN 12/12/20 05/16/21 Suppository] Pantoprazole Sodium [Protonix 40mg 40 mg PO DAILY 12/30/20 05/16/21 (granule) packet] bisoproloL fumarate [Bisoprolol 10 mg PO DAILY 12/30/20 05/16/21 10mg Tablet] Previous Rx's Medication Instructions Recorded fentanyl 25 mcg/
[2021-09-01 10:20] VITALS: BMI 31.6
--- NOTE | 2021-09-01 10:34 | XR_ITS ---
PROCEDURE: XR KUB CLINICAL INDICATION: confirm g tube placement COMPARISON: CR XR KUB from 01/23/2021 FINDINGS: Two images submitted during G-tube injection showing the insufflated bulb of the G-tube in the region the body of the stomach. No intraperitoneal extravasation of contrast. IMPRESSION: G-tube in the region of the body of the stomach. Dictated by: Carrillo Ramos MD 09/01/2021 11:15 Carrillo Ramos MD in [facility] 09/01/2021 11:15
--- NOTE | 2021-09-01 11:04 | PC.NURSE ---
Pt returned from Rad
--- NOTE | 2021-09-01 12:05 | PC.NURSE ---
Notified Ilya of request for transport back to [facility] and called report to nurse Lala of [address] [place] [address] at [facility].
[2021-09-01 12:47] VITALS: BP 169/98; PULSE 67; RESP 16; TEMP 36.9; O2SAT 97
== END 2021-09-01 12:49 | disposition home or self-care (01) ==
PROVIDERS: Emergency Provider Emergency Medicine; PCP Emergency Medicine
DX: T85.598A Other mechanical complication of other gastrointestinal prosthetic devices, implants and grafts, initial encounter (principal)
CPT/HCPCS: 43762; 74018; 99283

== ENCOUNTER 2021-11-08 05:13 | Emergency (ER) | payer MEDICARE, MEDICAID, SELFPAY ==
[2021-11-08 05:11] VITALS: BP 155/97; PULSE 79; RESP 16; TEMP 36.7; O2SAT 99; BMI 21.9
--- NOTE | 2021-11-08 06:04 | HMH.EDRECH ---
ED Disposition Clinical Impression: Encounter for care related to feeding tube Feeding tube dysfunction Qualifiers: Encounter type: initial encounter Qualified Code(s): T85.598A - Other mechanical complication of other gastrointestinal prosthetic devices, implants and grafts, initial encounter Disposition: Home, Self-Care Condition on Discharge: Good Instructions: How to Use Your Feeding Tube Additional Instructions: resume prev orders Referrals: Farooq Garcia MD [Primary Care Provider] - - Critical Care Critical Care Time: No Attestation: On 11/08/21, the high probability of a clinically significant, sudden or life threatening deterioration of the following system(s) required my full and direct attention, intervention and personal management. The time I documented below is in addition to time spent performing reported procedures but includes the following listed in this critical care notation. Medical Decision Making - Medical Records Medical records reviewed: Yes: I reviewed the patient's medical records. - Francois Inquiry Pt receiving controlled substance: No Vital Signs: 11/08/21 05:11 Temperature 98.0 F Temperature Source Oral Pulse Rate [Right] 79 Respiratory Rate 16 Blood Pressure [Right Arm] 155/97 H Blood Pressure Mean [Right Arm] 116 02 Sat by Pulse Oximetry 99 Orders (Tests/Meds): ED MEDICATIONS Discontinued Medications Generic Name Dose Route Start Last Admin Trade Name Freq PRN Reason Stop Dose Admin Diatrizoate Meglum/Diatrizoate Sod 15 ml 11/08/21 06:11 11/08/21 06:16 Diatrizoate Rosanna 66% & Diatrizoate Na 10% 30ml Udc PO 11/08/21 06:12 15 ml ONCE ONE Administration ORDERS Category Date Time Status XR KUB Stat Exams 11/08/21 06:10 Taken - Radiology Data #1 Image(s): Abdomen Image Reviewed: Yes I have reviewed radiologist's interpretation Preliminary Findings: Normal/NAD (g tube ok) Medical Decision Narrative: gtube replaced w/o diff confirmed with xray Recheck HPI - General Chief Complaint: Recheck/Abnormal Lab/Rx Stated Complaint: G-tube out Time Seen by Provider: 11/08/21 06:00 Mode of Arrival: EMS Source of Information: Patient, EMS, Medical Record Limitations: Altered Mental Status Description of Symptoms (Recalled from ER Triage Doc. by RN): [facility] report that pt pulled out g tube and nursing staff unable to replace - History of Present Illness HPI narrative: pulled gtube at [facility] - pt unable to give hx - no other reported issues complaint: other (g tube out ) Initial visit (ago): hour(s) Returns today for: other (g tube out ) Associated symptoms: none - Related Data Home Medications Medication Instructions Recorded Confirmed acetaminophen 500 mg tablet 1,000 mg G-TUBE Q6HP PRN 11/15/17 05/16/21 amlodipine 5 mg tablet 5 mg G-TUBE DAILY 11/15/17 05/16/21 isosorbide dinitrate 30 mg tablet 30 mg G-TUBE BID tab 11/15/17 05/16/21 Insulin Glargine,Hum.rec.anlog 10 unit SQ DAILY 12/09/18 05/16/21 [Lantus Solostar 100 Units/mL 3mL flexpen] cloNIDine [Clonidine] 0.2 mg TD FR 12/09/18 05/16/21 Lactulose [Enulose] 10 gm G-TUBE DAILYP PRN 04/07/20 05/16/21 hydrOXYzine pamoate [Vistaril 25mg 25 mg G-TUBE BIDP PRN 04/07/20 05/16/21 capsule] Metoclopramide HCl [Reglan 5mg 5 mg G-TUBE QID 11/12/20 05/16/21 Tablet] ondansetron HCL [Ondansetron 4mg 4 mg G-TUBE Q8HP PRN 11/12/20 05/16/21 tab*] Loratadine [Claritin] 10 mg G-TUBE DAILY 12/12/20 05/16/21 Mag Carb/Aluminum Hydrox/Algin 30 ml G-TUBE TIDP PRN 12/12/20 05/16/21 [Gaviscon Extra Strength Liquid] Promethazine HCl [Phenergan 25mg 25 mg RC Q6HP PRN 12/12/20 05/16/21 Suppository] Pantoprazole Sodium [Protonix 40mg 40 mg PO DAILY 12/30/20 05/16/21 (granule) packet] bisoproloL fumarate [Bisoprolol 10 mg PO DAILY 12/30/20 05/16/21 10mg Tablet] Previous Rx's Medication Instructions Recorded fentanyl 25 mcg/hr transdermal 25 mcg
--- NOTE | 2021-11-08 06:10 | XR_ITS ---
PROCEDURE INFORMATION: Exam: XR Abdomen Exam date and time: 11/08/2021 6:10 AM Age: 86 years old Clinical indication: Device placement; Gi device; Gastrostomy, other; Additional info: G tube palcement TECHNIQUE: Imaging protocol: XR of the abdomen. Views: Frontal supine view of the abdomen. 1 View. COMPARISON: CR XR KUB 09/01/2021 10:52 AM FINDINGS: Gastrointestinal tract: No bowel dilation. Intraperitoneal space: A single limited AP image of the upper abdomen was provided. Contrast has been injected through the G-tube, which appears in satisfactory position. No extraluminal contrast visualized. Vasculature: Vascular calcifications. Bones/joints: Scoliosis and degenerative changes of the spine. IMPRESSION: Satisfactory appearance of the G-tube.
[2021-11-08 06:44] VITALS: BP 149/87; PULSE 72; RESP 16; TEMP 36.7; O2SAT 99
== END 2021-11-08 07:04 | disposition home or self-care (01) ==
PROVIDERS: Emergency Provider Emergency Medicine; PCP Emergency Medicine
DX: T85.598A Other mechanical complication of other gastrointestinal prosthetic devices, implants and grafts, initial encounter (principal); I10 Essential (primary) hypertension; E78.5 Hyperlipidemia, unspecified; F41.8 Other specified anxiety disorders; I25.10 Atherosclerotic heart disease of native coronary artery without angina pectoris; F03.90 Unspecified dementia, unspecified severity, without behavioral disturbance, psychotic disturbance, mood disturbance, and anxiety; E11.9 Type 2 diabetes mellitus without complications
CPT/HCPCS: 43762; 74018; 99283